=== PATIENT | female | born 1980 | race African-American/Black ===

== ENCOUNTER 2023-01-07 13:35 | Emergency (ER) | payer OTHER, SELFPAY ==
--- NOTE | ~2023-01-07 | XR_ITS ---
EXAMINATION: XR chest 2V 01/07/2023 14:56 INDICATION: Chest pain with palpitations PROCEDURE: 2 view chest COMPARISON: No prior studies for comparison. FINDINGS: The lungs are clear. The cardiomediastinal silhouette is within normal limits. There are no pleural effusions. There is no pneumothorax suspected. IMPRESSION: 1: NO ACUTE CARDIOPULMONARY DISEASE. Reviewed, dictated and finalized at location []
--- NOTE | 2023-01-07 13:38 | ECG_ITS ---
Measurements Intervals [place] Rate: 103 P: 55 MO: 147 QRS: 56 QRSD: 91 T: 41 QT: 329 QTc: 432 Interpretive Statements SINUS TACHYCARDIA WITH OCCASIONAL ATRIAL PREMATURE COMPLEXES OTHERWISE NORMAL eCG NO PREVIOUS ECG AVAILABLE FOR COMPARISON Electronically Signed On 01-07-2023 16:17:30 CDT by Vito Livingston M.D.
[2023-01-07 13:39] VITALS: BP 153/84; PULSE 114; RESP 18; TEMP 36.2; O2SAT 97
[2023-01-07 14:05] LABS: Basophils Percent Auto 0.2 % (0.2-1.2); Eosinophils Percent Auto 0.4 % (0-4.4); Hematocrit 37.7 % (37.0-47.0); Hemoglobin 11.3 g/dL (12.0-15.0); Immature Granulocyte Absolute 0.02 K/mm3 (0.00-0.031); Immature Granulocyte Percent A 0.2 % (0-0.5); Lymphocytes Absolute Auto 2.78 K/mm3 (0.9-3.2); Lymphocytes Percent Auto 26.6 % (18.3-44.2); Mean Corpuscular Hemoglobin 27.5 pg (26-34); Mean Corpuscular Volume 91.7 fl (80-100); Monocytes Absolute Auto 0.6 K/mm3 (0.1-0.6); Monocytes Percent Auto 5.7 % (2.6-8.5); Neutrophils Percent Auto 66.9 % (45.5-73.1); Platelet Count Result 365 k/mm3 (150-375); Red Blood Count 4.11 M/mm3 (4.2-5.4); Red Cell Distribution Width 12.1 % (11.5-14.5); White Blood Count 10.5 K/mm3 (4.5-10.0)
[2023-01-07 14:16] LABS: Partial Thromboplastin Time 28.6 SECONDS (22.3-36.8); Prothrombin Time 13.5 Seconds (11.1-14.7)
[2023-01-07 14:18] LABS: Alanine Aminotransferase 19 U/L (6-35); Albumin Level 4.5 g/dL (3.5-5.1); Alkaline Phosphatase 45 U/L (38-126); Anion Gap 5 mmol/L (8-16); Aspartate Amino Transferase 19 U/L (14-36); Bilirubin,Total 0.4 mg/dL (0.2-1.3); Blood Urea Nitrogen 13 mg/dL (7-17); Calcium 9.2 mg/dL (8.4-10.2); Carbon Dioxide 28 mmol/L (22-30); Chloride 105 mmol/L (98-107); Estimated Glomerular Filt Rate > 60; Glucose 116 mg/dL (65-110); Lipase 60 U/L (23-300); Potassium 3.5 mmol/L (3.4-5.0); Sodium 138 mmol/L (137-145)
[2023-01-07 14:28] VITALS: PULSE 105
[2023-01-07 14:30] LABS: Troponin I < 0.012 ng/mL (0.000-0.034)
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
[2023-01-07 14:59] LABS: D Dimer 0.39 ug/mL (<0.48)
[2023-01-07 15:46] VITALS: BP 150/58; PULSE 95; O2SAT 99
== END 2023-01-07 15:47 | disposition home or self-care (01) ==
PROVIDERS: Preventive Medicine Aerospace Medicine; Emergency Provider Emergency Medicine; PCP Physician Assistant
DX: R00.2 Palpitations (principal); R00.0 Tachycardia, unspecified
CPT/HCPCS: 36415; 71046; 80053; 83690; 84443; 84484; 85025; 85380; 85610; 85730; 93005; 99284

== ENCOUNTER 2023-01-14 10:13 | Emergency (ER) | payer OTHER, SELFPAY ==
[2023-01-14 10:47] VITALS: BP 147/96; PULSE 95; RESP 16; TEMP 36.7; O2SAT 95
--- NOTE | 2023-01-14 12:19 | ED.LOWEXIN ---
HPI - Extremity Injury (Lower) General Chief Complaint: Extremity Injury, Lower Stated Complaint: leg cramping since Tuesday Time Seen by Provider: 01/14/23 12:02 History of Present Illness HPI Narrative: Patient is a 42-year-old female presenting with right leg pain. Patient states that she has a history of chronic lower back pain. She sees a pain specialist and sometimes gets back injections. States that for the last 4 days she has had severe right-sided lower back pain that radiates into her right buttocks and down her right leg. States that sometimes her toes feel tingly. States that she has had to resort to using a walker to help with ambulation. She denies weakness, saddle anesthesia, bladder or bowel incontinence, fevers. States that she saw her pain specialist yesterday who ordered an outpatient MRI. States that she cannot get that done until next week. She denies recent trauma. Denies further complaints. Related Data Allergies Allergy/AdvReac Type Severity Reaction Status Date / Time No Known Allergies Allergy Unverified 01/07/23 14:31 Review of Systems Review of Systems: All systems reviewed & are unremarkable except as noted in HPI and below Exam Narrative: GENERAL: Well-appearing, well-nourished, and in no acute distress. HEAD: Normocephalic, atraumatic. EYES: PERRLA and EOMI. ENT: Nares clear, no rhinorrhea or epistaxis. Mucous membranes moist. NECK: Supple. BACK: R sided paraspinal tenderness of lumbar region extending into right buttocks; no midline tenderness CHEST: No respiratory distress. HEART: Regular rate and rhythm. Normal peripheral pulses. ABDOMEN: Soft, nontender, nondistended EXTREMITIES: Normal range of motion. No edema. bilateral DP pulses 2+ SKIN: Warm, dry, no rash. NEURO: No focal deficits. Alert and oriented x3. 5/5 strength in all extremities, no sensory deficits PSYCH: Normal mood and affect. Course Vital Signs Vital signs: Vital Signs Temperature 98.1 F 01/14/23 10:47 Pulse Rate 95 01/14/23 10:47 Respiratory Rate 16 01/14/23 10:47 Blood Pressure 147/96 H 01/14/23 10:47 Pulse Oximetry 95 01/14/23 10:47 Temperature 98.1 F 01/14/23 10:47 Pulse Rate 105 H 01/14/23 14:33 Respiratory Rate 20 01/14/23 14:33 Blood Pressure 122/77 01/14/23 14:33 Pulse Oximetry 96 01/14/23 14:33 MDM - Extremity Injury (Lower) MDM Narrative Medical decision making narrative: Patient is a 42-year-old female presenting with acute on chronic lower back pain that is now radiating down her right leg. Patient is a bit hypertensive, otherwise vitals are within normal limits. Exam is remarkable for the above. She is neurologically intact. She denies any red flag symptoms. She actually already has an outpatient MRI ordered of her lumbar spine which I think is appropriate. Do not feel that imaging is warranted today. We will get her started on a steroid burst for lumbar radiculopathy. She states that she has Flexeril, meloxicam, hydrocodone at home from her pain specialist. Advised that she can continue using this as prescribed. Appropriate return precautions given. Patient voiced understanding and is agreeable with plan. Discharged in stable condition. Differential Diagnosis Differential diagnosis: Likely other (Lumbar radiculopathy, low back pain, sciatica) Medical Records Attestation: I reviewed the patient's medical records. Critical Care Time Critical Care Time Critical Care Time: No Discharge Plan Discharge Clinical Impression: Lumbar radiculopathy, right Patient Disposition: Home, Self-Care Condition: Stable Instructions: Antibiotic Form, Lumbar Radiculopathy (ED) Additional Instructions: Please complete the steroids as prescribed. This should help with the irritation involving the nerves in your lower back. You may use your other pain medications as prescribed. Please follow-up closely with your pain management physician. We recomme
[2023-01-14] MEDS: oxyCODONE HCL (*CRX) 5 MG TAB IR PO (13:12)
[2023-01-14] MEDS: predniSONE 20 MG TABLET 60 MG PO (13:12)
--- NOTE | 2023-01-14 13:19 | PC.NURSE ---
Pt medicated per SEP. Pt given sandwich and drink. No other requests at this time.
[2023-01-14 14:33] VITALS: BP 122/77; PULSE 105; RESP 20; O2SAT 96
== END 2023-01-14 14:38 | disposition home or self-care (01) ==
PROVIDERS: Emergency Provider Emergency Medicine; PCP Physician Assistant
DX: M54.16 Radiculopathy, lumbar region (principal)
CPT/HCPCS: 99283; A9270; J7512

== ENCOUNTER 2023-01-18 14:49 | Emergency (ER) | payer OTHER, SELFPAY ==
--- NOTE | 2023-01-18 14:56 | ED.BACK ---
HPI - Back Pain/Injury General Chief Complaint: Extremity Problem,Nontraumatic Stated Complaint: R LEG PAIN Time Seen by Provider: 01/18/23 14:56 Source: patient, RN notes reviewed and old records reviewed Mode of arrival: ambulatory Limitations: no limitations History of Present Illness HPI Narrative: 42-year-old female presents to the [facility] with right lower back, right leg pain. Was evaluated on the 14 of January in the emergency room, prescribed prednisone. Was supposed to follow-up with pain management Patient denies any changes. Denies any loss retention of bowel or bladder, no numbness or tingling in pelvis, no new back pain. Patient is wanting paperwork to be off of work because she cannot stand or walk. Again patient is denying any new signs or symptoms. Is requesting a work note to be off of work or modification of work. Reports having a MRI scheduled for the end of the month. States she will call her pain management in the morning Related Data Allergies Allergy/AdvReac Type Severity Reaction Status Date / Time No Known Allergies Allergy Verified 01/18/23 14:57 Review of Systems Review of Systems: All systems reviewed & are unremarkable except as noted in HPI and below Constitutional: Constitutional: Reports no additional constitutional complaints Eyes: Eyes: Reports no additional eye complaints ENT: Reports system reviewed and no additional complaints, except as documented Cardiovascular: Cardiovascular: Reports no additional cardiovascular complaints, Denies chest pain and Denies dyspnea Respiratory: Respiratory: Reports no additional respiratory complaints, Denies chest congestion, Denies cough and Denies dyspnea Gastrointestinal: Gastrointestinal: Reports no additional gastrointestinal complaints, Denies abdominal pain, Denies nausea and Denies vomiting Musculoskeletal: Musculoskeletal: Reports as per HPI and Reports back pain Integumentary/Breasts: Skin/Breast: Reports system reviewed and no additional complaints, except as docu Neurologic: Reports system reviewed and no additional complaints, except as documented Psychiatric: Psychiatric: Reports no additional psychiatric complaints Allergic/Immunologic: Allergic/Immunologic: Reports no additional allergic/immunologic complaints [facility] Past Medical History Medical History (Updated 01/18/23 @ 16:44 by Belinda Swanson APRN) Chronic back pain Comments At the time of my signature, I reviewed and agree with the nursing past medical, surgical, social, and family history. There is no relevant family history pertinent to the patient complaint. Exam Const: General: cooperative, healthy appearing, comfortable, no acute distress, well developed, alert and well nourished Nutritional Appearance: well nourished and obese Orientation/consciousness: patient oriented x3 Limitations: no limitations HENMT: Head: normal to inspection Ears: hearing grossly normal bilaterally and external ears normal Face/Nose/Sinus: Normal external nose present, Normal nares present, Normal nasal mucous membranes and turbinates present and normal facial exam Face and sinus: normal facial exam Mouth: Yes Normal oral and palatal mucosa present, Yes lip normal and Yes moist mucous membranes Throat: posterior oropharynx normal and uvula midline Eyes: General: appearance normal, both eyes and all related structures Alignment and Position: alignment normal Periorbital: periorbital findings normal Pupils: Equal, round and reactive pupils present EOM: EOMs intact bilaterally Neck: Neck: normal visual inspection, full ROM, no lymphadenopathy and no meningeal signs Chest: Chest palpation & inspection: normal inspection of the chest Resp: Effort & Inspection: normal respiratory effort and able to speak in complete sentences Cardio: Rate: regular rate Rhythm: regular rhythm GI: GI Palp: No abdominal tenderness Back/Spine/Pelvis: Back: back tenderness (Generalized lower lumbar
[2023-01-18 14:57] VITALS: BP 153/88; PULSE 110; RESP 16; TEMP 35.8; O2SAT 98
== END 2023-01-18 15:10 | disposition home or self-care (01) ==
PROVIDERS: Emergency Provider Nurse Practitioner; PCP Physician Assistant
DX: M54.16 Radiculopathy, lumbar region (principal); I10 Essential (primary) hypertension; E11.9 Type 2 diabetes mellitus without complications
CPT/HCPCS: 99211; G0463

== ENCOUNTER 2024-08-27 00:14 | Emergency (ER) | payer OTHER, SELFPAY ==
[2024-08-27] VITALS (15 sets, daily range): BP systolic 102–139; BP diastolic 48–74; PULSE 80–97; RESP 13–31; TEMP 36.7; O2SAT 96–98
--- NOTE | 2024-08-27 00:36 | ED_ITS ---
HPI - Back Pain/Injury General Chief Complaint: Back Pain/Injury Stated Complaint: R hip and lower back pain x 4d Time Seen by Provider: 08/27/24 00:22 History of Present Illness HPI Narrative: 44-year-old female with history of chronic back pain and lumbar radiculopathy presents to the emergency department for acute on chronic back pain with lumbar radiculopathy. Patient presents via EMS from home. States she has had a flare for sciatica for the past 4 days. She is prescribed tramadol, muscle relaxers, gabapentin and meloxicam by her PCP which she has been taking without much improvement. tonight, the patient states she try to get out of bed to go to the bathroom when her sciatica pain significantly increased. She contacted EMS was transported to the ED. She does states the pain is in the right buttock and radiates down the right posterior lateral aspect of her leg and at times goes down into her foot. She describes it is sharp and cramping like pain. She notes that she has had several outpatient MRIs, most recently in March that showed spinal stenosis. She is following with pain management for a while for injections but states this was not helping her symptoms she stopped seeing them around the summertime. She is scheduled to establish with the neurosurgeon this summer at [facility]. She denies abdominal pain, dysuria or hematuria, fever, nausea vomiting, injury or trauma, saddle anesthesia, bowel or bladder incontinence, urinary retention, use of IV drugs, recent surgeries or procedures to her back. Related Data Allergies Allergy/AdvReac Type Severity Reaction Status Date / Time No Known Allergies Allergy Verified 08/27/24 00:18 Review of Systems Review of Systems: All systems reviewed & are unremarkable except as noted in HPI and below PMFSH Past Medical History Medical History Chronic back pain Exam Narrative: GENERAL: Well-appearing, well-nourished, and in no acute distress. HEAD: Normocephalic, atraumatic. EYES: EOMI. ENT: Nares clear, no rhinorrhea or epistaxis. Mucous membranes moist. NECK: Supple. BACK: Mild tenderness to the lumbar spine, increasing tenderness to the right paraspinous muscles and overlying the right piriformis. No overlying skin changes, crepitus, step-offs or deformities. CHEST: Clear to auscultation. No respiratory distress. HEART: Regular rate and rhythm. No murmur heard. Normal peripheral pulses. ABDOMEN: Soft, nontender, nondistended, normal active bowel sounds. EXTREMITIES: Normal range of motion. No edema. No saddle anesthesia, strength 5/5 in BLE SKIN: Warm, dry, no rash. NEURO: No focal deficits. Alert and oriented x3 Course Vital Signs Vital signs: Vital Signs Temperature 98.1 F 08/27/24 00:12 Pulse Rate 97 08/27/24 00:12 Respiratory Rate 15 08/27/24 00:12 Blood Pressure 131/74 08/27/24 00:12 Pulse Oximetry 98 08/27/24 00:12 Oxygen Delivery Room Air 08/27/24 00:12 Temperature 98.1 F 08/27/24 00:12 Pulse Rate 97 08/27/24 00:12 Respiratory Rate 15 08/27/24 00:12 Blood Pressure 131/74 08/27/24 00:12 Pulse Oximetry 98 08/27/24 00:12 Oxygen Delivery Room Air 08/27/24 00:12 MDM - Back Pain/Injury MDM Narrative Medical decision making narrative: 44-year-old female with history of chronic back pain and lumbar radiculopathy presents to emergency department for acute on chronic back pain and radiculopathy. See HPI for further history. Triage vitals are stable. Patient is afebrile and nontoxic appearing. Exam is significant for mild tenderness over the lumbar spine, more notably over the right paraspinous muscles and right piriformis. She is neurovascularly intact without signs or symptoms of cauda equina or severe cord compression. She has no risk factors for infectious etiology such as diskitis, osteomyelitis or spinal abscess. No abdominal pain concerning for aortic dissection. No urinary complaints. Her presentation is most consistent with acute on chronic back pain and radiculopathy symptoms. No injury or trauma. Do not feel emergent imaging is needed at this time. She is being closely managed by her PCP and has been referred to neurosurgery for which she has an appointment this summer. Will treat acute flare with steroids in addition to her pain regimen at home. In the ED she was given IM Decadron, lidocaine patch and IM Toradol. Return precautions were discussed. She is agreeable to plan verbalized understanding. Discharged in stable condition. Discharge Plan Discharge Clinical Impression: Lumbar radiculopathy Patient Disposition: Home, Self-Care Condition: Stable Instructions: Antibiotic Form, Lumbar Radiculopathy (ED), Back Pain (ED) Additional Instructions: Your evaluated in the emergency department for sciatica flare. Please continue taking the medications to have at home for ear pain in addition to using the lidocaine patches and taking the steroids I have prescribed you as directed. Please follow-up very closely with her primary care provider. Return to the emergency department if you develop a fever, numbness in your groin, you lose control of her bowel or bladder, abdominal pain, or other concerning symptoms. Patient Language: Romansh Prescriptions: New prednisone 50 mg tablet 50 mg PO DAILY Qty: 5 0RF lidocaine 5 % adhesive patch,medicated 1 patch topical DAILY Qty: 15 0RF Rx Instructions: leave on most painful area for up to 12 hrs. do not use more than 1 patch in a 24-hour period. Follow-up/Referrals: Sunil,MIKE Viramontes [Non-Staff] -
--- OUTSIDE RECORDS SUMMARY | 2024-08-27 00:38 | XMS_ITS | Clinical Summary ---
Author Organization [facility] Address [address] [place] [address] Care Team Providers Care Housekeeper Child Care Name Role Phone Ramu Dubon Primary Care Provider [phone] Allergies No known active allergies Medications MULTIPLE VITAMINS-MINERA LS ER OR Take by mouth daily. Active Drospirenone (SLYND) 4 MG Tab Slynd 4 mg (28) tablet Take 1 tablet by mouth once daily Active acetaminophen (TYLENOL) 500 MG tablet every 4 (four) hours as needed. Active acyclovir 800 MG tablet daily. 05/26/2021 Active atorvastatin 40 MG tablet daily. 06/01/2021 Active famotidine 20 MG tablet 2 (two) times daily. 05/26/2021 Active meloxicam 15 MG tablet daily. 05/17/2021 Active metFORMIN ER 500 MG 24 hr tablet daily with breakfast. 05/26/2021 Active pantoprazole EC 40 MG tablet 05/28/2021 Active traMADol 50 MG tablet 2 (two) times daily. 05/27/2021 Active vitamin D2, ergocalciferol, 95678 UNITS capsule 06/26/2021 Active lisinopril (PRINIVIL) 30 MG tablet daily. Active nystatin (MYCOSTATIN) powder nystatin 100,000 unit/gram topical powder Active cyclobenzaprine (FLEXERIL) 10 MG tablet TAKE 1 TABLET BY MOUTH ONCE DAILY AT BEDTIME FOR 30 DAYS 12/24/2022 Active aspirin EC (ECOTRIN) 81 MG tablet Take 1 tablet every day by oral route. Active gabapentin (NEURONTIN) 100 MG capsule Take 2 capsules 3 times a day by oral route as needed for 30 days. 02/03/2023 Active oxybutynin XL (DITROPAN-XL) 10 MG 24 hr tablet Take 1 tablet (10 mg total) by mouth every morning. Active atenolol (TENORMIN) 25 mg split tab Take 1 split tab (25 mg total) by mouth daily. 02/06/2024 Active chlorhexidine (PERIDEX) 0.12 % solution Use as directed 15 mLs in the mouth or throat 2 (two) times daily. 10/17/2023 Active Active Problems Problem Noted Date Diagnosed Date Lumbar facet arthropathy 05/10/2022 Overview (05/10/2022): Added automatically from request for surgery [id number] Lumbar radiculopathy 06/18/2021 Encounters Date Type Department Care Team Description 06/07/2024 Orders Only [facility] [place] [address] [id number] Ree Cassidy, RAG COLLECTOR 06/07/2024 Telephone [facility] [place] [address] [id number] Idalia Arce, RN Follow Up Call 06/07/2024 Telephone [facility] [place] [place] [address] [id number] Autumn Bailey RN Follow Up Call 06/04/2024 Telephone [facility] [place] [address] [id number] Piedad Latham RN Follow Up (/) from Last 3 Months Family History Medical History Relation Comments Diabetes Mother Hypertension Mother Diabetes Sister Hypertension Sister Relation Status Comments Mother Sister Social History Tobacco Use Types Packs/Day Years Used Date Smoking Tobacco: Never Smokeless Tobacco: Never Alcohol Use Standard Drinks/Week Comments Never 0 (1 standard drink = 0.6 oz pur e alcohol) Comments No Sex and Gender Information Value Date Recorded Sex Assigned at Not on file Legal Sex Female 2:56 PM CDT Gender Identity Female 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 Sexual Orientation Not on file Last Filed Vital Signs Vital Sign Reading Time Taken Comments Blood Pressure 123/70 02/14/2024 10:49 AM CDT Pulse 88 02/14/2024 10:49 AM CDT Temperature 36.7 C (98 F) 02/14/2024 10:18 AM CDT Respiratory Rate 18 02/14/2024 10:4 9 AM CDT Oxygen Saturation 98% 02/14/2024 10: 49 AM CDT Inhaled Oxygen Concentration - - Weight 126.9 kg (279 lb 12.8 oz) 2023 10:18 AM CDT Height 167.6 cm (5' 6 ) 02/14/2024 10:1 8 AM CDT Body Mass Index 45.16 02/14/2024 10:18 AM CDT Plan of Treatment Upcoming Encounters Date Type Department Care Team (Late st Contact Info) Description 01/08/2025 9:20 AM CDT Office Visit [facility] - [facility] [address], [address] [place] [address] Philip Newton MD [address] [place] [address] Health Maintenance Due Date Last Done Comments Annual Physical 1984 DTaP, Tdap and Td Vaccines ( 2 - Tdap) 06/11/1997 06/10/1997 Hepatitis C 1999 Hepatitis B Vaccines (1 of 3 - 19+ 3-dose series) 2000 Mammogram Screening 2021 COVID-19 Vaccine ( - 2023-2 5 season) 2024 Influenza Adult (#1) 2024 HPV Vaccines Aged Out No longer eligi ble based on patient's age to complete this topic Meningococcal B Vaccine Aged Out No l onger eligible based on patient's age to complete this topic Meningococcal Vaccine Aged Out No lyudmila ej eligible based on patient's age to complete this topic Pneumococcal Vaccine: Pediat rics (0 to 5 Years) and At-Risk Patients (6 to 64 Years) Aged Out No longer eligi ble based on patient's age to complete this topic RSV Immunizations Under 20 Months Aged Out No longer eligible based on patient's age to complete this topic Insurance [employer] Care Teams Housekeeper Child Care Relationship Specialty [place] [address] [place] [id number] PCP - General PHYSICIAN MODEL MAKER SCALE 09/27/23
--- OUTSIDE RECORDS SUMMARY | 2024-08-27 00:38 | XMS_ITS | Encounter Summary ---
Author Organization [facility] Address [address] [place] [address] Phone Care Team Providers Care Appliance Installer Name Role Phone Provider, Not On File Primary Care Provider Unav ailable Provider, None Primary Care Provider UnavailAnnita Alicea PAC Primary Care Provider [phone] Reason for Visit * Reason Comments Medication Refill Encounter Details Date Type Department Care Team (Late st Contact Info) Description 10/09/[address] [facility] [address] [place] [address] Melissa Miranda, TICKETING CLERK, UPHOLSTERY AUTO TRIMMER [address] [place] [address] Medication Refill Social History Tobacco Use Types Packs/Day Years Used Date Smoking Tobacco: Never Smokeless Tobacco: Never Alcohol Use Standard Drinks/Week Comments No 0 (1 standard drink = 0.6 oz pur e alcohol) Comments Unknown Sex and Gender Information Value Date Recorded Sex Assigned at Not on file Legal Sex Female 3:21 PM CDT Gender Identity Not on file Sexual Orientation Not on file documented as of this encounter Miscellaneous Notes * Telephone Encounter - Bette Dillard - 10/10/2019 12:49 PM CDT Notified patient * Telephone Encounter - Bette Dillard - 10/10/2019 8:47 AM CDT Refill request * Telephone Encounter - Bette Dillard - 10/09/2019 2:41 PM CDT Refill request documented in this encounter Plan of Treatment Not on file documented as of this encounter Visit Diagnoses Not on filedocumented in this encounter Care Teams Appliance Installer Relationship Specialty Start Date End Date Provider, Not On File [place] PCP - General 07/30/19 11/14/19 Provider, None [place] PCP - General 11/15/19 12/12/19 Annita Barber, [facility] [address] [place] [id number] PCP - General Physician Supervisor Sewer Maintenance 12/13/19 documented as of this encounter
--- OUTSIDE RECORDS SUMMARY | 2024-08-27 00:38 | XMS_ITS | CONTINUITY OF CARE DOCUMENT ---
Author Name laura sanchez Address Unknown Organization [facility] Address [address] [facility] [address] [place] [address] Phone [phone] Care Team Providers Care Bead Wrapper Name Role Phone Lilly ARGUELLO, Viet Unavailable [phone] JEFFERY PORRAS MD Unavailable CLARITA ARGUELLO, MATTIE Unavailable INSURANCE PROVIDERS Payer name Policy type / Coverage type [place] [employer] party ID [employer] MEDICAID Medicaid [id number] SELF PAY [id number]
--- OUTSIDE RECORDS SUMMARY | 2024-08-27 00:38 | XMS_ITS | Encounter Summary ---
Author Organization [facility] Address [address] [facility] [address] Phone Care Team Providers Care Kitchen Porter Name Role Phone Provider, Not On File Primary Care Provider Unav ailable Provider, None Primary Care Provider UnavailAnnita Alicea PAC Primary Care Provider [phone] Reason for Visit * Reason Comments Medication Refill Encounter Details Date Type Department Care Team (Late st Contact Info) Description 08/29/2019 Refill [facility] [address] [place] [phone] Melissa Miranda, PRIMARY [place] TEACHER, CLAIMS EXAMINER [address] [place] [phone] Medication Refill Social History Tobacco Use Types [...] on file documented as of this encounter Plan of Treatment Not on file documented as of this encounter Visit Diagnoses Not on filedocumented in this encounter Care Teams Kitchen Porter Relationship Specialty Start Date End Date Provider, Not On File [place] PCP - General 07/30/19 11/14/19 Provider, None [place] PCP - General 11/15/19 12/12/19 Annita Barber, [facility] [address] [place] [address] PCP - General Physician Instructional Design Consultant 12/13/19 documented as of this encounter
--- OUTSIDE RECORDS SUMMARY | 2024-08-27 00:38 | XMS_ITS | Encounter Summary ---
Author Organization [facility] Address [address] [facility] [place] [address] Phone Care Team Providers Care Quebracho Tanner Name Role Phone Provider, Not On File Primary Care Provider Unav ailable Provider, None Primary Care Provider UnavailAnnita Alicea PAC Primary Care Provider [phone] Reason for Visit * Reason Comments Medication Refill Encounter Details Date Type Department Care Team (Late st Contact Info) Description 09/12/2019 [facility]ill [facility] [address] [place] [phone] Melissa Miranda, ANODIZING LINE OPERATOR, WEB CONTENT COORDINATOR [address] [place] [phone] Medication Refill Social History Tobacco Use Types [...] on filedocumented in this encounter Care Teams Quebracho Tanner Relationship Specialty Start Date End Date Provider, Not On File [place] PCP - General 07/30/19 11/14/19 Provider, None [place] PCP - General 11/15/19 12/12/19 Annita Barber, [facility] [address] [place] [address] PCP - General Physician Legal Mediator 12/13/19 documented as of this encounter
--- OUTSIDE RECORDS SUMMARY | 2024-08-27 00:38 | XMS_ITS | Encounter Summary ---
Author Organization [facility] Address [address] [place] [address] Phone Care Team Providers Care Adjunct Writing Instructor Name Role Phone Provider, Not On File Primary Care Provider Unav ailable Provider, None Primary Care Provider UnavailAnnita Alicea PAC Primary Care Provider [phone] Reason for Visit * Reason Comments Medication Refill Encounter Details Date Type Department Care Team (Late st Contact Info) Description 11/06/2019 Refill [facility] [address] [place] [address] Melissa Miranda, BUSINESS CONTINUITY MANAGER, SCALLOP CUTTER [address] [place] [address] Medication Refill Social History Tobacco [...] * Telephone Encounter - Bette Dillard - 11/07/2019 8:38 AM CDT Pt will contact her PCP for refill. documented in this encounter Plan of Treatment Not on file documented as of this encounter Visit Diagnoses Not on filedocumented in this encounter Care Teams Adjunct Writing Instructor Relationship Specialty Start Date End Date Provider, Not On File [place] PCP - General 07/30/19 11/14/19 Provider, None [place] PCP - General 11/15/19 12/12/19 Annita Barber, PAC [address] [place] [address] PCP - General Physician Body Masker 12/13/19 documented as of this encounter
--- OUTSIDE RECORDS SUMMARY | 2024-08-27 00:38 | XMS_ITS | Encounter Summary ---
Author Organization [facility] Address [address] [place] [address] Care Team Providers Care Campus Executive Director Name Role Phone Annita Barber PA-C Primary Care Provider + Ramu Dubon Primary Care Provider [phone] Reason for Referral * Surgical (Routine) - Closed Specialty Diagnoses / Procedures Referred By Jose walden Referred To Contact Diagnoses Lumbar facet arthropathy Procedures Case request operating room: INJECTION FACET JOINT l45 and [id number] Sudha Silva MD [facility] [address] [place] [address] Phone: tel: fax: Referral ID Status Reason Start Date Expiration Date Visits Re quested Visits Authorized [id number] Closed 08/17/2022 08/17/2023 1 1 UATE NURSE * Surgical (Routine) - Closed Specialty Diagnoses / Procedures Referred By Jose walden Referred To Contact Procedures Case request operating room: BLOCK SACROILIAC JOINT Ying French APNP Phone: tel: fax: Referral ID Status Reason Start Date Expiration Date Visits Re quested Visits Authorized [id number] Closed 07/22/2021 08/22/2022 1 1 UATE NURSE Encounter Details Date Type Department Care Team (Late st Contact Info) Description 07/22/2021 Prep for Procedure [facility] [place] [address] [phone] Ying French APNP [address] [place] [phone] Social History Tobacco Use Types Packs/Day Years Used Date Smoking Tobacco: Never Smokeless Tobacco: Never Alcohol Use Standard Drinks/Week Comments Never 0 (1 standard drink = 0.6 oz pur e alcohol) Comments No Sex and Gender Information Value Date Recorded Sex Assigned at Not on file Legal Sex Female 2:56 PM CDT Gender Identity Female 07/27/2021 10:23 AM GRADUATE NURSE Sexual Orientation Not on file COVID-19 Exposure Response Date Recorded In the last month, have you been in contact with someone who was confirmed or suspected to have Coronavirus / COVID-19? No / Unsure 07/22/2021 8:42 AM GRADUATE NURSE documented as of this encounter Plan of Treatment Upcoming Encounters Date Type Department Care Team ([facility] st Contact Info) Description 01/08/2025 9:20 AM CDT Office Visit [facility] [address] [facility] [facility], [address] [place] [address] Philip Newton MD [address] [place] [address] Scheduled Orders Name Type Priority Associated Diagnoses Orde r Schedule Case request operating room: BLOCK SACROILIAC JOINT Case Request Routine Once for 1 Occurrences starting 07/22/2021 until 07/22/2021 Case request operating room: INJECTION FACET JOINT l45 and [id number] Case Request Routine Lumbar facet arthropathy Once for 1 Occurrences starting 08/17/2022 until 08/17/2022 documented as of this encounter Visit Diagnoses Diagnosis Lumbar facet arthropathy- Primary Lumbosacral spondylosis without myelopathy documented in this encounter Care Teams Campus Executive Director Relationship Specialty Start Date End Date Annita Barber PA-C [address] [place] [address] PCP - General PHYSICIAN APPRENTICE PAINTER HAND 12/19/20 09/26/23 Ramu Dubon PA [address] [place] [address] PCP - General PHYSICIAN APPRENTICE PAINTER HAND 09/27/23 documented as of this encounter
--- OUTSIDE RECORDS SUMMARY | 2024-08-27 00:38 | XMS_ITS | Encounter Summary ---
Author Organization [facility] Address [address] [facility] [place] [address] Phone Care Team Providers Care Territory Supervisor Name Role Phone Annita Barber Primary Care Provider Reason for Visit * Reason Comments Medication Refill Encounter Details Date Type Department Care Team (Late st Contact Info) Description 04/22/2020 Refill [facility] [address] [place] [address] Israel Moeller PAC Medication Refill Social History Tobacco Use Types [...] on filedocumented in this encounter Care Teams Territory Supervisor Relationship Specialty Start Date End Date Annita Barber PAC [address] [place] [address] PCP - General Physician Burlapper 12/13/19 documented as of this encounter
--- OUTSIDE RECORDS SUMMARY | 2024-08-27 00:38 | XMS_ITS | Encounter Summary ---
Author Organization [facility] Address [address] [place] [address] Phone Care Team Providers Care Stripper Machine Operator Name Role Phone Annita Barber Primary Care Provider [phone] Reason for Visit * Reason Comments Medication Refill Encounter Details Date Type Department Care Team (Late st Contact Info) Description 03/17/2020 [facility]ill [facility] [address] [place], [place] [address] Israel Moeller PAC Medication Refill Social History [...] encounter Miscellaneous Notes * Telephone Encounter - Israel Moeller PAC - 03/18/2020 4:42 PM CDT Rx refill approved. Refill approved at this time as there is no other provider in Pain Management. Please ask pt to have this medication refilled by PCP. * Telephone Encounter - Olivia Leon RN - 03/18/2020 7:48 AM CDT Unable to sign per policy, routing to provider for review and approval. Last visit was on 01/23/20. Last refill of methocarbamol given on 02/15/20 and they were given #60 with 0 refills. Order pended. documented in this encounter Plan of Treatment Not on file documented as of this encounter Visit Diagnoses Not on filedocumented in this encounter Care Teams Stripper Machine Operator Relationship Specialty Start Date End Date Annita Barber, [facility] [address] [place] [address] PCP - General Physician Laboratory Tech 12/13/19 documented as of this encounter
--- OUTSIDE RECORDS SUMMARY | 2024-08-27 00:39 | XMS_ITS | Clinical Summary ---
Author Organization [facility] Address [address] [facility] [place] [address] Care Team Providers Care Software Project Manager Name Role Phone Annita Barber PA-C Primary Care Provider + Source Comments [facility],non-owned Affiliates and Associated Physician Practices is amultiple site organization consisting of ambulatory clinics and hospital sitesin [place], [place], [place]. This disclosure is being madepursuant to the Care Everywhere program and may not contain all information available regarding this patient. Last updated 18.[facility] Allergies No known active allergies Medications * Be aware that medications may not be up to date on this document. Alwaysverify current medications with the patient. Medication Sig Dispensed Refills Start Date End Date Status NORETHINDRONE PO Take by mouth once daily Active acetaminophen (TYLENOL) 500 MG tablet Take 2 tabs by mouth in am and 2 tabs by mouth in pm as needed for pain. 06/15/2018 Active acyclovir (ZOVIRAX) 800 MG tablet acyclovir 800 mg tablet TAKE 1 TABLET BY MOUTH EVERY DAY Active citalopram (CELEXA) 40 MG tablet citalopram 40 mg tablet TAKE 1 TABLET BY MOUTH EVERY DAY Active meloxicam (MOBIC) 15 MG tablet TAKE 1 TABLET BY MOUTH DAILY WITH FOOD 09/11/2018 Active pantoprazole EC (PROTONIX) 40 MG tablet Take 40 mg by mouth once daily Active traMADol (ULTRAM) 50 MG tablet Take 50 mg by mouth 03/12/2019 Activ e Multiple Vitamins-Minerals (MULTIVITAMIN ADULT PO) Active ascorbic acid (VITAMIN C) 500 MG tablet Take 500 mg by mouth once daily Active Active Problems Patient Care Coordination No te Formatting of this note migh t be different from the original. This patient is enrolled in the Education Study. She is in the control group. She has completed Questionnaire #1. She has completed Questionnaire #2. She has completed Questionnaire #3. Problem Noted Date Diagnosed Date LGA (large for gestational age) fetus 04/17/2015 Overview (04/30/2015): Assessment: >90%tile on 04/16/2015 Plan: Repeat ultrasound for growth in 3 weeks Anemia 04/16/2015 Overview (04/30/2015): Assessment: Asymptomatic Hgb 10.2 04/16/15 Plan: Continue oral PNV with Fe Obesity complicating 03/26/2015 Overview (04/30/2015): Assessment: As of 26w1d Body mass index is 40.37 kg/(m^2). GCT 108 TW->253 (2#) Plan: Continue to monitor Needs counseling on weight Uterine fibroids affecting 03/26/2015 Overview (04/30/2015): Assessment: Uterine fibroids as of 01/27/15 measured: 1. Posterior right lower submucosal uterine segment 6.6 x 7.4 x 6.4 cm 2. 6.1 x 4.4 x 7.9 cm mid anterior, 3. 8.6 x 6.3 x 7.1 cm right anterior Repeat FETU scan 03/26/15: 1. Post right lower submucosal uterine segment mean diameter 7.8cm 2. abutting head 3. Anterior right subserosal mid uterine segment mean diameter 6.54cm 4. Right lateral uterine fibroid at fundus seems subserosal with a 5. large base with a mean diameter of 8.67cm Overall stable in size. Likely degenerating as patient has severe pain directly over fibroid while patient is not azalia. Plan: Pain control: motrin 600mg until 32 wga Pt aware needs to stop this week Discussed pain control including tylenol, warm compresses Supervision of high risk in second [facility] 03/26/2015 Overview (04/30/2015): Sees Dr. Smith - Next appointment 02/28/15 Dating by 10 wk documented US not c/w LMP B+/I/-/-, NR Quad screen low risk Pap, GC/CT negative HIV testing today H/H(plt): 10.2/31.5 (218) 04/16/15 GBS at 36 wga Threatened labor 03/26/2015 Overview (04/30/2015): Assessment: Admitted 03/26 with short cervix (1.8 cm) and azalia every 4-6 minutes on admission, Cervix cl/th/hi WEU visit 04/14/15 for contractions, cervix 0/0/-3, patient taking progesterone orally Plan: Continue vaginal progesterone S/p ANCS 03/26, 03/27 for improved outcome including accelerated lung maturity and decreased incidence of IVH and NEC S/P indocin for tocolysis given suspected etiology is secondary to inflammation from degenerating uterine fibroids. 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 Overview (04/30/2015): Assessment: Taking acyclovir for suppression. Patient denies history of outbreaks and currently without symptoms Plan: BLE on admission to L&D Cervical insufficiency durin g in second trimester, antepartum Overview (04/30/2015): Assessment: TV U/S 03/26/15: Transvaginal cervical length measures 1.8cm with some funneling identified. TV U/S 04/16/15: Transvaginal cervical length measures 3.3cm, no funneling identified. Plan: Continue routine care Resolved Problems Problem Noted Date Diagnosed Date Resolved Date Fibroids 03/26/2015 03/26/2015 Overview (03/26/2015): Uterine fibroids as of 01/27/15 measured: Posterior right lower submucosal uterine segment 6.6 x 7.4 x 6.4 cm 6.1 x 4.4 x 7.9 cm mid anterior, 8.6 x 6.3 x 7.1 cm right anterior Repeat FETU scan 03/26/15: Post right lower submucosal uterine segment mean diameter 7.8cm abutting head Anterior right subserosal mid uterine segment mean diameter 6.54cm Right lateral uterine fibroid at fundus seems subserosal with a large base with a mean diameter of 8.67cm Overall stable in size. Likely degenerating as patient has severe pain directly over fibroid while patient is not azalia. Plan: Pain control, Indocin for tocolysis labor in second trim sabrina without delivery 04/16/2015 Pelvic pressure in , antepartum 04/16/2015 Family History Medical History Relation Name Comments Diabetes Mother Hypertension Mother Hypertension Sister Relation Name Status Comments Mother Sister Social History Tobacco Use Types Packs/Day Years Used Date Smoking Tobacco: Never Smokeless Tobacco: Never Tobacco Cessation:Counseling Given: Yes Alcohol Use Standard Drinks/Week Comments No 0 (1 standard drink = 0.6 oz pur e alcohol) Sex and Gender Information Value Date Recorded Sex Assigned at Not on file Gender Identity Not on file Sexual Orientation Not on file Last Filed Vital Signs Vital Sign Reading Time Taken Comments Blood Pressure 139/78 03/21/2019 9:14 AM CDT Pulse 94 03/21/2019 9:14 AM CDT Temperature 37.8 C (100.1 F) 03/21/2019 9:14 AM CDT Respiratory Rate 18 05/26/2015 7:30 AM SOLAR PANEL INSTALLATION SUPERVISOR Oxygen Saturation 97% 03/21/2019 9:14 AM CDT Inhaled Oxygen Concentration - - Weight 130.2 kg (287 lb) 03/21/2019 9:14 AM CDT Height 167.6 cm (5' 6 ) 03/21/2019 9:14 AM CDT Body Mass Index 46.32 03/21/2019 9:14 AM CDT Plan of Treatment Health Maintenance Due Date Last Done Comments LIPID TESTING 1981 MAMMOGRAM 1981 PAP SMEAR 1981 HEPATITIS C SCREENING 07/09/1999 DTAP/TDAP/TD VACCINES (1 - Tdap) 2000 HEPATITIS B VACCINE (1 of 3 - 19+ 3-dose series) 2000 COVID-19 VACCINE (1 - 2023-2 5 season) 2024 INFLUENZA VACCINE (#1) 2024 DEPRESSION SCREENING 07/18/2024 ZOSTER VACCINE (1 of 2) 2031 HIV SCREENING Completed 04/16/2015 HIB VACCINE Aged Out No longer eligi ble based on patient's age to complete this topic HPV VACCINE Aged Out No longer eligi ble based on patient's age to complete this topic MENINGOCOCCAL (Group B) VACCINE Aged Out No longer eligible based on patient's age to complete this topic MENINGOCOCCAL VACCINE Aged Out No lyudmila ej eligible based on patient's age to complete this topic PNEUMOCOCCAL VACCINE Aged Out No long er eligible based on patient's age to complete this topic Procedures Procedure Name Priority Date/Time Associated Diagnosis Comments HIV-1 HIV-2 ANTIBODY + HIV P24 AG PANEL Routine 04/16/2015 2:06 PM CDT from Last 3 Months or Most Recently Relevant to Health Maintenance Results * HIV-1 HIV-2 ANTIBODY + HIV P24 AG PANEL (04/16/2015 2:06 PM CDT) HIV1/2 Ab + P24 Ag Non Reactive Non Reactive 04/16/2015 6:47 PM CDT [facility] Blood BLOOD SPECIMEN / Unknown Venipuncture / Unknown 04/16/2015 2:06 PM CDT 04/16/2015 2:50 PM CDT Narrative [facility] - 04/16/2015 6:47 PM CDT No Laboratory evidence of HIV infection. Chikis Das MD LAB - CHEMISTRY ANA HANN[facility] Organization Address City/State/ZIP Co de Phone Number [facility] [address] [place] [address] from Last 3 Months or Most Recently Relevant to Health Maintenance Advance Directives * Full Code (Latest Code Status on File) Date Activated Date Inactivated Comments 05/24/2015 11:37 AM 05/26/2015 3:46 PM * Full Code Date Activated Date Inactivated Comments 04/14/2015 7:07 PM 04/15/2015 12:35 AM * Full Code Date Activated Date Inactivated Comments 03/26/2015 5:04 PM 03/30/2015 2:19 PM Care Teams Software Project Manager Relationship Specialty Start Date End Date Annita Barber PA-C [address] [place] [id number] PCP - General 05/04/19
--- OUTSIDE RECORDS SUMMARY | 2024-08-27 00:39 | XMS_ITS | Referral Summary ---
Author Organization [facility] [employer] [facility] Address [address] [facility] [place] [address] Care Team Providers Care Knitting Demonstrator Name Role Phone Annita Barber PA-C Primary Care Provider + Source Comments [facility] [employer],non-owned Affiliates and Associated Physician Practices is amultiple site organization consisting of ambulatory clinics and hospital sitesin [place], [place], [place] and [place]. This disclosure is being madepursuant to the Care Everywhere program and may not contain all information available regarding this patient. Last updated 18.[facility] [employer] Allergies No known active allergies Medications * [...] compresses Supervision of high risk in second [facility] 03/26/2015 Overview (04/30/2015): Sees Dr. Smith - [...] 04/16/2015 Pelvic pressure in , antepartum 04/16/2015 Social History Tobacco Use Types Packs/Day Years [...] CDT Respiratory Rate 18 05/26/2015 7:30 AM TAKE DOWN SORTER Oxygen Saturation 97% 03/21/2019 9:14 AM CDT Inhaled Oxygen Concentration - - Weight 130.2 kg (287 lb) 03/21/2019 9:14 AM CDT Height 167.6 cm (5' 6 ) 03/21/2019 9:14 AM CDT Body Mass Index 46.32 03/21/2019 9:14 AM CDT Functional Status Functional Status Response Date of Assess ment Is person deaf or have serious hearing difficult y? No 05/26/2015 Is person blind or have serious difficulty seein g? No 05/26/2015 Does person have serious dif ficulty walking/climbing stairs? No 05/26/2015 Does person have difficulty dressing/bathing? No 05/26/2015 Does person have difficulty doing errands alone? No 05/26/2015 Cognitive Status Response Date of Assessm ent Does person have difficulty concentrating/remembering/making decisions? No 05/26/2015 Plan of Treatment Not on file Procedures Procedure Name Priority Date/Time Associated Diagnosis Comments HIV-1 HIV-2 ANTIBODY + HIV P24 AG PANEL Routine 04/16/2015 2:06 PM CDT from Last 3 Months or Most Recently Relevant to Health Maintenance Results * HIV-1 HIV-2 ANTIBODY + HIV P24 AG PANEL (04/16/2015 2:06 PM CDT) HIV1/2 Ab + P24 Ag Non Reactive Non Reactive 04/16/2015 6:47 PM CDT [facility] Blood BLOOD SPECIMEN / Unknown Venipuncture / Unknown 04/16/2015 2:06 PM CDT 04/16/2015 2:50 PM CDT Narrative [facility] - 04/16/2015 6:47 PM CDT No Laboratory evidence of HIV infection. Chikis Das MD LAB - CHEMISTRY ANA [facility]ANNON Performing Organization Address City/State/[facility] Co de Phone Number [facility] [place] [address] from Last 3 Months or Most Recently Relevant to Health Maintenance Advance Directives * Full Code (Latest Code Status on File) Date Activated Date Inactivated Comments 05/24/2015 11:37 AM 05/26/2015 3:46 PM * Full Code Date Activated Date Inactivated Comments 04/14/2015 7:07 PM 04/15/2015 12:35 AM * Full Code Date Activated Date Inactivated Comments 03/26/2015 5:04 PM 03/30/2015 2:19 PM Care Teams Knitting Demonstrator Relationship Specialty Start Date End Date Annita Barber PA-C [address] [place] [address] PCP - General 05/04/19
--- OUTSIDE RECORDS SUMMARY | 2024-08-27 00:39 | XMS_ITS | Encounter Summary ---
Author Organization [facility] Address [address] [place] [address] Care Team Providers Care Non Destructive Evaluation Manager Name Role Phone Annita Barber PA-C Primary Care Provider + Ramu Dubon Primary Care Provider [phone] Encounter Details Date Type Department Care Team (Late st Contact Info) Description 04/19/2023 [employer] Network[employer] Message Enc [facility] [place] [address] [id number] Ying French APNP [address] [place] [address] Follow Up Social History Tobacco Use Types Packs/Day Years Used Date Smoking Tobacco: Never Smokeless Tobacco: Never Alcohol Use Standard Drinks/Week Comments Never 0 (1 standard drink = 0.6 oz pur e alcohol) Comments No Sex and Gender Information Value Date Recorded Sex Assigned at Not on file Legal Sex Female 2:56 PM CDT Gender Identity Female 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 Sexual Orientation Not on file documented as of this encounter Plan of Treatment Upcoming Encounters Date Type Department Care Team (Late st Contact Info) Description 01/08/2025 9:20 AM CDT Office Visit [facility] Multispecialty Care - [facility] [address] [facility], [address] [place] [phone] Philip Newton MD [address] [place] [address] documented as of this encounter Visit Diagnoses Not on filedocumented in this encounter Care Teams Non Destructive Evaluation Manager Relationship Specialty Start Date End Date Annita Barber PA-C [address] [place] [address] PCP - General PHYSICIAN [facility]PUT[facility] 12/19/20 09/26/23 Ramu Dubon PA [address] [place] [phone] PCP - General PHYSICIAN [facility] 09/27/23 documented as of this encounter
--- OUTSIDE RECORDS SUMMARY | 2024-08-27 00:39 | XMS_ITS | Clinical Summary ---
Author Organization [facility] Address [address] [place] [address] Phone Care Team Providers Care Filling Winder Name Role Phone Annita Barber Primary Care Provider [phone] Allergies No known active allergies Medications citalopram (CELEXA) 40 MG Tablet Take 40 mg by mouth daily. Active dicyclomine (BENTYL) 20 MG Tablet Take 20 mg by mouth every 6 hours as needed. Active pantoprazole (PROTONIX) 40 MG Tablet Delayed Response Take 40 mg by mouth daily. Active acetaminophen (TYLENOL) 500 MG Tablet Take 2 tabs by mouth in am and 2 tabs by mouth in pm as needed for pain. 180 Tab 3 06/15/2018 Active meloxicam (MOBIC) 15 MG Tablet TAKE 1 TABLET BY MOUTH ONCE DAILY WITH FOOD 30 Tab 08/30/2019 Active traMADol (ULTRAM) 50 MG Tablet TAKE 1 TABLET BY MOUTH TWICE DAILY NEEDED FOR MODERATE OR MORE SEVERE PAIN. 60 Tab 10/10/2019 Active SLYND 4 MG Tablet Take 4 mg by mouth daily. 12/31/2019 Active acyclovir (ZOVIRAX) 800 MG Tablet Take 800 mg by mouth daily. 01/14/2020 Active methocarbamol (ROBAXIN) 500 MG Tablet TAKE 2 TABLETS BY MOUTH 4 TIMES DAILY NEEDED FOR PAIN 60 Tab 3 05/23/2020 Active Active Problems Problem Noted Date Diagnosed Date SI (sacroiliac) joint dysfunction 06/15/2018 Sacralization of lumbar vertebra 01/30/2018 Arthropathy of lumbar facet joint 12/26/2017 Family History Medical History Relation Name Comments Cancer Maternal Grandfather Cancer Maternal Grandmother breast cancer Diabetes Mother Hypertension Mother Relation Name Status Comments Maternal Grandfather Maternal Grandmother Mother Social History Tobacco Use Types Packs/Day Years [...] Sign Reading Time Taken Comments Blood Pressure 162/93 01/23/2020 10:54 AM CDT Pulse 105 01/23/2020 10:54 AM CDT Temperature 37.1 C (98.8 F) 01/23/2020 10:54 AM CDT Respiratory Rate 18 04/05/2019 10:53 AM CDT Oxygen Saturation 97% 01/23/2020 10:54 AM CDT Inhaled Oxygen Concentration - - Weight - - Height - - Body Mass Index - - Plan of Treatment Health Maintenance Due Date Last Done Comments Hepatitis C Virus (HCV) Screening 1981 TdaP Immunization 1981 Hepatitis B Immunization (1 of 3 - 19+ 3-dose series) 2000 Pap Smear 2002 Cervical Cancer Screening (CCS) 2011 HPV/Cotest 2011 Discussion re Starting/Frequ ency of Mammograms 2021 Influenza Immunization (#1) 2024 SARS-COV-2 Immunization ( season) 2024 Respiratory Syncytial Virus (RSV) Immunization (Adult) (1 - 1-dose 75+ series) 2056 DTaP/Tdap/Td Immunization Discontinued 06/10/1997 Meningococcal Immunization (ACWY) Aged Out No longer eligible based on patient's age to complete this topic Pneumococcal Immunization Combined Aged Out No longer eligible b ased on patient's age to complete this topic Rotavirus Immunization Aged Out No lo nger eligible based on patient's age to complete this topic Insurance MEDICAID [place] Care Teams Filling Winder Relationship Specialty Start Date End Date Annita Barber, PAC [address] [place] [id number] PCP - General Physician Greige Goods Examiner 12/13/19
--- OUTSIDE RECORDS SUMMARY | 2024-08-27 00:39 | XMS_ITS | Encounter Summary ---
Author Organization [facility] Address [address] [place] [address] Care Team Providers Care Thermal Intelligence Analyst Name Role Phone Annita Barber PA-C Primary Care Provider + Ramu Dubon Primary Care Provider [phone] Encounter Details Date Type Department Care Team (Late st Contact Info) Description 05/09/2023 [employer] Message Enc [facility] [place] [address] [id number] Ying French APNP [address] [place] [address] Follow Up Social History Tobacco Use Types Packs/Day Years Used Date Smoking Tobacco: Never Smokeless Tobacco: Never Alcohol Use Standard Drinks/Week Comments Never 0 (1 standard drink = 0.6 oz pur e alcohol) Comments No Sex and Gender Information Value Date Recorded Sex Assigned at Not on file Legal Sex Female 2:56 PM CDT Gender Identity Female 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 Sexual Orientation Not on file documented as of this encounter Plan of Treatment Upcoming Encounters Date Type Department Care Team (Late st Contact Info) Description 01/08/2025 9:20 AM CDT Office Visit [facility] Multispecialty Care - [facility] [address], [address] [place] [phone] Philip Newton MD [address] [place] [address] documented as of this encounter Visit Diagnoses Not on filedocumented in this encounter Care Teams Thermal Intelligence Analyst Relationship Specialty Start Date End Date Annita Barber PA-C [address] [place] [address] PCP - General PHYSICIAN [employer] 12/19/20 09/26/23 Ramu Dubon PA [address] [place] [phone] PCP - General PHYSICIAN SPONGE DIVER 09/27/23 documented as of this encounter
--- OUTSIDE RECORDS SUMMARY | 2024-08-27 00:39 | XMS_ITS | Data Portability ---
Author Organization [facility] CALLIGiselle Webbia [facility] Address [address] [place] [address] Care Team Providers Care Pre Planning Advisor Name Role Phone MONICA CHOI Orthopedist [phone] ALEJANDRA OROZCO Primary Care Provider Assessment Encounter Date Assessment Date Assessment LastModified by Organization Details LastModified Time 05/23/2024 05/23/2024 STEWART De Jesus Not available 05/23/2024 12:03:31 Plan of Treatment Reminders Order Date Submit Date Provider Last Modified By Organization Details Last Modified Time Details Appointments ANY 30 2024 09:30A M ALEJANDRA RAZA PA-C Not available Not available Not available ANY 15 2024 09:30A M ALEJANDRA RZAA PA-C Not available Not available Not available Lab TSH + free T4, serum 2023 024 SONIA [facility], [address], [place], [address], 08/14/2023 10:08:29 HbA1c (hemoglob in A1c), blood 2023 024 [email or web address] In-Office Order, Internal Use Only DO Not Attach Compendium DO Not Attach Compendium, Do Not Delete/merge, [id number] 08/10/2023 10:33:41 CMP, serum or plasma 2023 024 BOLIVAR [facility], [address], [place], [address], 08/14/2023 10:08:32 albumin/c reatinine , mass ratio, urine 2023 024 SONIA [facility], [address], [place], [address], 08/14/2023 10:08:28 CBC w/ auto diff 2023 024 SONIA [facility], [address], [place], [address], 08/14/2023 10:08:33 lipid panel, serum 2023 024 SONIA [facility], [address], [place], [address], 08/14/2023 10:08:32 HbA1c (hemoglob in A1c), blood 2023 024 [email or web address] In-Office Order, Internal Use Only DO Not Attach Compendium DO Not Attach Compendium, Do Not Delete/merge, [id number] 11/09/2023 11:04:34 HbA1c (hemoglob in A1c), blood 2023 024 [email or web address] In-Office Order, Internal Use Only DO Not Attach Compendium DO Not Attach Compendium, Do Not Delete/merge, [id number] 02/06/2024 11:35:33 drug screen, urine 2023 024 BOLIVAR [facility], [address], [place], [address], 06/07/2024 15:12:41 HbA1c (hemoglob in A1c), blood 2024 025 [email or web address] In-Office Order, Internal Use Only DO Not Attach Compendium DO Not Attach Compendium, Do Not Delete/merge, [id number] 08/23/2024 13:02:09 albumin/c reatinine , mass ratio, urine 2024 025 SONIA [facility], [address], [place], [address], 08/23/2024 13:02:17 CMP, serum or plasma 2024 025 SONIA [facility], [address], [place], [address], 08/23/2024 13:02:18 CBC w/ auto diff 2024 025 SONIA [facility], [address], [place], [address], 08/23/2024 13:02:18 TSH, ultra-sen sitive, serum 2024 025 SONIA [facility], [address], [place], [address], 08/23/2024 13:02:17 HbA1c (hemoglob in A1c), blood 2024 025 SONIA [facility], [address], [place], [address], 08/23/2024 13:02:16 lipid panel, serum 2024 025 SONIA [facility], [address], [place], [address], 08/23/2024 13:02:17 vitamin D, 25-hydrox y, total, serum 2024 025 SONIA [facility], [address], [place], [address], 08/23/2024 13:02:18 Referral None recorded. Procedures None recorded. Surgeries None recorded. Imaging XR, wrist + hand [address] ([facility]), [address] [facility], [place], [address], 11/14/2023 11:55:22 Medication Orders chlorhexi dine gluconate 0.12 % mouthwash 2023 024 [facility], [address], [place], [address], 08/10/2023 10:33:43 tramadol 50 mg tablet 2023 024 [facility] [address], [address], [place], [address], 08/10/2023 10:52:21 cyclobenz aprine 10 mg tablet 2023 024 [facility] [address], [address], [place], [address], 08/10/2023 10:33:44 gabapenti n 100 mg capsule 2023 024 [facility] [address], [address], [place], [address], 11/09/2023 11:04:39 oxybutyni n chloride ER 15 mg tablet,ex tended release 24 hr 2023 024 [facility] [address], [address], [place], [address], 11/09/2023 11:22:29 metformin ER 500 mg tablet,ex tended release 24 hr 2023 024 [facility] [address], [address], [place], [address], 11/09/2023 11:04:40 tramadol 50 mg tablet 2023 024 [facility] [address], [address], [place], [address], 11/09/2023 11:04:42 cyclobenz aprine 10 mg tablet 2023 024 [facility] [address], [address], [place], [address], 11/09/2023 11:04:41 atorvasta tin 40 mg tablet 2023 024 [facility], [address] [facility], [place], [address], 11/09/2023 11:04:41 pantopraz ole 40 mg tablet,de layed release 2023 024 [facility], [address] [facility], [place], [address], 11/09/2023 11:22:27 ergocalci ferol (vitamin D2) 1,250 mcg (50,000 unit) capsule 2023 024 [facility] [address], [address] [facility], [place], [address], 11/09/2023 11:22:26 lisinopri l 30 mg tablet 2023 024 [facility], [address] [place], [address], 11/09/2023 11:22:27 gabapenti n 100 mg capsule 2023 024 [facility] [address], [address] [facility], [place], [address], 02/06/2024 11:35:35 oxybutyni n chloride ER 15 mg tablet,ex tended release 24 hr 2023 024 [facility] [address] [place], [address], 02/06/2024 11:35:38 metformin ER 500 mg tablet,ex tended release 24 hr 2023 024 [facility] [address] [place], [address], 02/06/2024 11:35:38 tramadol 50 mg tablet 2023 024 [facility] [address] [facility], [place], [address], 02/06/2024 11:35:41 cyclobenz aprine 10 mg tablet 2023 024 [facility] [address] [place], [address], 02/06/2024 11:35:38 atorvasta tin 40 mg tablet 2023 024 [facility] [address] [place], [address], 02/06/2024 11:35:40 pantopraz ole 40 mg tablet,de layed release 2023 024 [facility] [address] [facility], [place], [address], 02/06/2024 11:35:39 ergocalci ferol (vitamin D2) 1,250 mcg (50,000 unit) capsule 2023 024 [facility] [address] [facility], [place], [address], 02/06/2024 11:35:37 lisinopri l 30 mg tablet 2023 024 [facility] [address] [facility], [place], [address], 02/06/2024 11:35:40 atenolol 25 mg tablet 2023 024 [facility] [address] [place], [address], 02/06/2024 11:35:38 gabapenti n 100 mg capsule 2023 024 [facility] [address] [place], [address], 05/23/2024 11:57:31 oxybutyni n chloride ER 15 mg tablet,ex tended release 24 hr 2023 024 [facility] [address] [place], [address], 05/23/2024 11:57:32 tramadol 50 mg tablet [address] [facility] [address] [facility], [place], [address], 05/24/2024 09:44:01 cyclobenz aprine 10 mg tablet 2023 024 [facility] [address], [address] [facility], [place], [address], 05/23/2024 11:57:33 atorvasta tin 40 mg tablet 2023 024 [facility] [address], [address] [facility], [place], [address], 05/23/2024 11:57:31 pantopraz ole 40 mg tablet,de layed release 2023 024 [facility] [address], [address] [facility], [place], [address], 05/23/2024 11:57:33 ergocalci ferol (vitamin D2) 1,250 mcg (50,000 unit) capsule 2023 024 [facility] [address], [address] [facility], [place], [address], 05/23/2024 11:57:32 lisinopri l 30 mg tablet 2023 024 [facility] [address], [address] [facility], [place], [address], 05/23/2024 11:57:33 atenolol 25 mg tablet 2023 024 [facility] [address], [address] [facility], [place], [address], 05/23/2024 11:57:32 gabapenti n 100 mg capsule 2024 025 [facility] [address] [place], [address], 08/23/2024 13:02:26 oxybutyni n chloride ER 15 mg tablet,ex tended release 24 hr 2024 025 [facility] [address] [place], [address], 08/23/2024 13:02:25 metformin 500 mg tablet 2024 025 [facility] [address] [place], [address], 08/23/2024 13:02:24 tramadol 50 mg tablet 2024 025 [facility] [address] [place], [address], 08/23/2024 13:02:43 cyclobenz aprine 10 mg tablet 2024 025 [facility] [address] [place], [address], 08/23/2024 13:02:28 atorvasta tin 40 mg tablet 2024 025 [facility] [address] [place], [address], 08/23/2024 13:02:27 pantopraz ole 40 mg tablet,de layed release 2024 025 [facility] [address] [place], [address], 08/23/2024 13:02:27 ergocalci ferol (vitamin D2) 1,250 mcg (50,000 unit) capsule 2024 025 [facility] [address] [place], [address], 08/23/2024 13:02:32 nystatin 100,000 unit/gram topical powder 2024 025 [facility] [address] [place], [address], 08/23/2024 13:02:33 lisinopri l 30 mg tablet 2024 025 [facility] [address] [place], [address], 08/23/2024 13:02:25 atenolol 25 mg tablet 2024 025 [facility] [address] [place], [address], 08/23/2024 13:02:29 Patient TargetsNo targets recorded. Patient Instructions Encounter Date Encounter Id Patient Instructions Last Modified By Organization Details Last Modified Time 08/10/2023 [id number] body mass index: care instructions [email or web address] Not available 08/10/2023 10:33:33 learning about healthy weight [email or web address] Not available 08/10/2023 10:33:34 abnormal sweating: care instructions [email or web address] Not available 08/10/2023 10:33:34 learning about type 2 diabetes [email or web address] Not available 08/10/2023 10:33:34 type 2 diabetes: care instructions Not available 08/10/2023 10:33:34 back care and preventing injuries: care instructions [email or web address] Not available 08/10/2023 10:33:34 low back pain: exercises Not available 08/10/2023 10:33:33 11/09/2023 [id number] learning about type 2 diabetes Not available 11/09/2023 11:04:31 type 2 diabetes: care instructions [email or web address] Not available 11/09/2023 11:04:31 back care and preventing injuries: care instructions [email or web address] Not available 11/09/2023 11:04:31 low back pain: exercises [email or web address] Not available 11/09/2023 11:04:31 body mass index: care instructions [email or web address] Not available 11/09/2023 11:04:31 learning about healthy weight [email or web address] Not available 11/09/2023 11:04:30 02/06/2024 [id number] learning about type 2 diabetes [email or web address] Not available 02/06/2024 11:35:27 type 2 diabetes: care instructions Not available 02/06/2024 11:35:27 back care and preventing injuries: care instructions [email or web address] Not available 02/06/2024 11:35:27 low back pain: exercises Not available 02/06/2024 11:35:26 A healthy lifestyle: care instructions [email or web address] Not available 02/06/2024 11:35:27 chest pain: care instructions Not available 02/06/2024 11:35:27 05/23/2024 [id number] back care and preventing injuries: care instructions [email or web address] Not available 05/23/2024 11:57:18 low back pain: exercises [email or web address] Not available 05/23/2024 11:57:18 A healthy lifestyle: care instructions [email or web address] Not available 05/23/2024 11:57:18 08/23/2024 [id number] learning about type 2 diabetes Not available 08/23/2024 13:02:09 type 2 diabetes: care instructions [email or web address] Not available 08/23/2024 13:02:08 back care and preventing injuries: care instructions [email or web address] Not available 08/23/2024 13:02:09 low back pain: exercises [email or web address] Not available 08/23/2024 13:02:09 A healthy lifestyle: care instructions [email or web address] Not available 08/23/2024 13:02:09 Reason for Referral None Reported. Results Created Date Observation Date Name Description Value Unit Range Abnormal Flag Note LastModifiedBy Organization Detail LastModifiedTime 08/10/19 24 08/10/2023 HbA1c (hemo globi n A1c), blood HbA1c 5.8 Not Available In-Office Order Internal Use Only DO Not Attach Compendium DO Not Attach Compendium, Do Not Delete/merge, [id number] 08/10/2023 10:08:22 08/13/19 24 08/14/2023 ALBUM IN/CR EATIN INE RATIO ,URIN E creatinine, urine 119.5 mg/dL notest ab. Not Available [facility] [address], [place], [address], 08/14/2023 10:08:28 08/13/19 24 08/14/2023 ALBUM IN/CR EATIN INE RATIO ,URIN E albumin, urine 19.5 ug/mL notest ab. Not Available [address], [address], 08/14/2023 10:08:28 08/13/19 24 08/14/2023 ALBUM IN/CR EATIN INE RATIO ,URIN E alb/creat ratio 16 mg/g_ creat 0-29 Christina l: 0 - 29 Moder ately incre ased: 30 - 300 Sever deshawn incre ased: >300 Not Available [address], [address], 08/14/2023 10:08:28 08/13/19 24 08/14/2023 TSH+F REE T4 TSH 0.711 uIU/m L 0.450- 4.500 Not Available [address], [address], 08/14/2023 10:08:29 08/13/19 24 08/14/2023 TSH+F REE T4 T4,free(dire ct) 1.27 NG/dL 0.82-1 .77 Not Available [address], [address], 08/14/2023 10:08:29 08/13/19 24 08/14/2023 LIPID PANEL cholesterol, total 126 mg/dL 100-19 9 Not Available [address], [address], 08/14/2023 10:08:31 08/13/19 24 08/14/2023 LIPID PANEL triglyceride s 92 mg/dL 0-149 Not Available [address], [address], 08/14/2023 10:08:31 08/13/19 24 08/14/2023 LIPID PANEL HDL cholesterol 35 mg/dL >39 below low normal Not Available [address], [address], 08/14/2023 10:08:31 08/13/19 24 08/14/2023 LIPID PANEL VLDL cholesterol delroy 18 mg/dL 5-40 Not Available [address], [address], 08/14/2023 10:08:31 08/13/19 24 08/14/2023 LIPID PANEL LDL chol calc (nih) 73 mg/dL 0-99 Not Available [address], [address], 08/14/2023 10:08:31 08/13/19 24 08/14/2023 COMP. METAB OLIC PANEL (14) glucose 123 mg/dL 70-99 above high normal Not Available [address], [address], 08/14/2023 10:08:32 08/13/19 24 08/14/2023 COMP. METAB OLIC PANEL (14) BUN 16 mg/dL 6-24 Not Available [address], [address], 08/14/2023 10:08:32 08/13/19 24 08/14/2023 COMP. METAB OLIC PANEL (14) creatinine 0.64 mg/dL 0.57-1 .00 Not Available [address], [address], 08/14/2023 10:08:32 08/13/19 24 08/14/2023 COMP. METAB OLIC PANEL (14) eGFR 113 mL/mi n/1.7 3 >59 Not Available [address], [address], 08/14/2023 10:08:32 08/13/19 24 08/14/2023 COMP. METAB OLIC PANEL (14) BUN/creatini ne ratio 25 9-23 above high normal Not Available [address], [address], 08/14/2023 10:08:32 08/13/19 24 08/14/2023 COMP. METAB OLIC PANEL (14) sodium 138 mmol/ L 134-14 4 Not Available [address], [address], 08/14/2023 10:08:32 08/13/19 24 08/14/2023 COMP. METAB OLIC PANEL (14) potassium 4.1 mmol/ L 3.5-5. 2 Not Available [address], [address], 08/14/2023 10:08:32 08/13/19 24 08/14/2023 COMP. METAB OLIC PANEL (14) chloride 101 mmol/ L 96-106 Not Available [address], [address], 08/14/2023 10:08:32 08/13/19 24 08/14/2023 COMP. METAB OLIC PANEL (14) carbon dioxide, total 23 mmol/ L 20-29 Not Available [address], [address], 08/14/2023 10:08:32 08/13/19 24 08/14/2023 COMP. METAB OLIC PANEL (14) calcium 9.6 mg/dL 8.7-10 .2 Not Available [address], [address], 08/14/2023 10:08:32 08/13/19 24 08/14/2023 COMP. METAB OLIC PANEL (14) protein, total 7.0 g/dL 6.0-8. 5 Not Available [address], [address], 08/14/2023 10:08:32 08/13/19 24 08/14/2023 COMP. METAB OLIC PANEL (14) albumin 4.3 g/dL 3.9-4. 9 Not Available [address], [address], 08/14/2023 10:08:32 08/13/19 24 08/14/2023 COMP. METAB OLIC PANEL (14) globulin, total 2.7 g/dL 1.5-4. 5 Not Available [address], [address], 08/14/2023 10:08:32 08/13/19 24 08/14/2023 COMP. METAB OLIC PANEL (14) A/G ratio 1.6 1.2-2. 2 Not Available [address], [address], 08/14/2023 10:08:32 08/13/19 24 08/14/2023 COMP. METAB OLIC PANEL (14) bilirubin, total 0.3 mg/dL 0.0-1. 2 Not Available [address], [address], 08/14/2023 10:08:32 08/13/19 24 08/14/2023 COMP. METAB OLIC PANEL (14) alkaline phosphatase 51 IU/L 44-121 Not Available [address], [address], 08/14/2023 10:08:32 08/13/19 24 08/14/2023 COMP. METAB OLIC PANEL (14) AST (SGOT) 12 IU/L 0-40 Not Available [address], [address], 08/14/2023 10:08:32 08/13/19 24 08/14/2023 COMP. METAB OLIC PANEL (14) ALT (SGPT) 10 IU/L 0-32 Not Available [address], [address], 08/14/2023 10:08:32 08/13/19 24 08/14/2023 CBC WITH DIFFE RENTI AL/PL ATELE T WBC 9.3 x10e3 /uL 3.4-10 .8 Not Available [address], [address], 08/14/2023 10:08:33 08/13/19 24 08/14/2023 CBC WITH DIFFE RENTI AL/PL ATELE T RBC 4.01 x10e6 /uL 3.77-5 .28 Not Available [address], [address], 08/14/2023 10:08:33 08/13/19 24 08/14/2023 CBC WITH DIFFE RENTI AL/PL ATELE T hemoglobin 11.3 g/dL 11.1-1 5.9 Not Available [address], [address], 08/14/2023 10:08:33 08/13/19 24 08/14/2023 CBC WITH DIFFE RENTI AL/PL ATELE T hematocrit 35.6 % 34.0-4 6.6 Not Available [address], [address], 08/14/2023 10:08:33 08/13/19 24 08/14/2023 CBC WITH DIFFE RENTI AL/PL ATELE T MCV 89 fL 79-97 Not Available [address], [address], 08/14/2023 10:08:33 08/13/19 24 08/14/2023 CBC WITH DIFFE RENTI AL/PL ATELE T MCH 28.2 pg 26.6-3 3.0 Not Available [address], [address], 08/14/2023 10:08:33 08/13/19 24 08/14/2023 CBC WITH DIFFE RENTI AL/PL ATELE T MCHC 31.7 g/dL 31.5-3 5.7 Not Available [address], [address], 08/14/2023 10:08:33 08/13/19 24 08/14/2023 CBC WITH DIFFE RENTI AL/PL ATELE T RDW 11.6 % 11.7-1 5.4 below low normal Not Available [address], [address], 08/14/2023 10:08:33 08/13/19 24 08/14/2023 CBC WITH DIFFE RENTI AL/PL ATELE T platelets 387 x10e3 /uL 150-45 0 Not Available [address], [address], 08/14/2023 10:08:33 08/13/19 24 08/14/2023 CBC WITH DIFFE RENTI AL/PL ATELE T neutrophils 73 % notest ab. Not Available [address], [address], 08/14/2023 10:08:33 08/13/19 24 08/14/2023 CBC WITH DIFFE RENTI AL/PL ATELE T lymphs 23 % notest ab. Not Available [address], [address], 08/14/2023 10:08:33 08/13/19 24 08/14/2023 CBC WITH DIFFE RENTI AL/PL ATELE T monocytes 4 % notest ab. Not Available [address], [address], 08/14/2023 10:08:33 08/13/19 24 08/14/2023 CBC WITH DIFFE RENTI AL/PL ATELE T eos 0 % notest ab. Not Available [address], [address], 08/14/2023 10:08:33 08/13/19 24 08/14/2023 CBC WITH DIFFE RENTI AL/PL ATELE T basos 0 % notest ab. Not Available [address], [address], 08/14/2023 10:08:33 08/13/19 24 08/14/2023 CBC WITH DIFFE RENTI AL/PL ATELE T neutrophils (absolute) 6.7 x10e3 /uL 1.4-7. 0 Not Available [address], [address], 08/14/2023 10:08:33 08/13/19 24 08/14/2023 CBC WITH DIFFE RENTI AL/PL ATELE T lymphs (absolute) 2.1 x10e3 /uL 0.7-3. 1 Not Available [address], [address], 08/14/2023 10:08:33 08/13/19 24 08/14/2023 CBC WITH DIFFE RENTI AL/PL ATELE T monocytes(ab solute) 0.4 x10e3 /uL 0.1-0. 9 Not Available [address], [address], 08/14/2023 10:08:33 08/13/19 24 08/14/2023 CBC WITH DIFFE RENTI AL/PL ATELE T eos (absolute) 0.0 x10e3 /uL 0.0-0. 4 Not Available [address], [address], 08/14/2023 10:08:33 08/13/19 24 08/14/2023 CBC WITH DIFFE RENTI AL/PL ATELE T baso (absolute) 0.0 x10e3 /uL 0.0-0. 2 Not Available [address], [address], 08/14/2023 10:08:33 08/13/19 24 08/14/2023 CBC WITH DIFFE RENTI AL/PL ATELE T immature granulocytes 0 % notest ab. Not Available [address], [address], 08/14/2023 10:08:33 08/13/19 24 08/14/2023 CBC WITH DIFFE RENTI AL/PL ATELE T immature grans (abs) 0.0 x10e3 /uL 0.0-0. 1 Not Available [address], [address], 08/14/2023 10:08:33 08/13/19 24 08/14/2023 DIABE SUZI PATIE NT EDUCA TION pdf Not applic able Not Available [address], [address], 08/14/2023 10:08:29 08/13/19 24 08/14/2023 DIABE SUZI PATIE NT EDUCA TION pdf . Not Available [address], [address], 08/14/2023 10:08:33 11/09/19 24 11/09/2023 HbA1c (hemo globi n A1c), blood HbA1c 6.2 Not Available In-Office Order Internal Use Only DO Not Attach Compendium DO Not Attach Compendium, Do Not Delete/merge, [id number] 11/09/2023 10:40:48 02/06/20 24 02/06/2024 HbA1c (hemo globi n A1c), blood HbA1c 6.5 Not Available In-Office Order Internal Use Only DO Not Attach Compendium DO Not Attach Compendium, Do Not Delete/merge, [id number] 02/06/2024 10:56:44 06/06/2006/07/2024 DRUG PROFI LE,UR ,9 DRUGS ,BUND amphetamines , urine NEGATI VE NG/mL cutoff =1000 Amphe tamin e test inclu calvin Amphe tamin e and Metha mphet amine . Not Available [facility] ([facility]) [address] [place], [address], 06/07/2024 15:12:41 06/06/20 24 06/07/2024 DRUG PROFI LE,UR ,9 DRUGS ,BUND barbiturate NEGATI VE NG/mL cutoff =300 Not Available [facility] ([facility]) [address] [place], [address], 06/07/2024 15:12:41 06/06/20 24 06/07/2024 DRUG PROFI LE,UR ,9 DRUGS ,BUND benzodiazepi nishi NEGATI VE NG/mL cutoff =300 Not Available [facility] ([facility]) [address] [place], [address], 06/07/2024 15:12:41 06/06/20 24 06/07/2024 DRUG PROFI LE,UR ,9 DRUGS ,BUND cannabinoid NEGATI VE NG/mL cutoff =50 Not Available [facility] ([facility]) [address] [place], [address], 06/07/2024 15:12:41 06/06/20 24 06/07/2024 DRUG PROFI LE,UR ,9 DRUGS ,BUND cocaine (metab.) NEGATI VE NG/mL cutoff =300 Not Available [facility] ([facility]) [address] [place], [address], 06/07/2024 15:12:41 06/06/20 24 06/07/2024 DRUG PROFI LE,UR ,9 DRUGS ,BUND opiates NEGATI VE NG/mL cutoff =300 Opiat e test inclu calvin Codei ne and Morph ine only. Not Available [facility] ([facility]) [address] [facility], [place], [address], 06/07/2024 15:12:41 06/06/20 24 06/07/2024 DRUG PROFI LE,UR ,9 DRUGS ,BUND phencyclidin e NEGATI VE NG/mL cutoff =25 Not Available [facility] ([facility]) [address] [facility], [place], [address], 06/07/2024 15:12:41 06/06/20 24 06/07/2024 DRUG PROFI LE,UR ,9 DRUGS ,BUND methadone screen, urine NEGATI VE NG/mL cutoff =300 Not Available [facility] ([facility]) [address] [facility], [place], [address], 06/07/2024 15:12:41 06/06/20 24 06/07/2024 DRUG PROFI LE,UR ,9 DRUGS ,BUND propoxyphene , urine NEGATI VE NG/mL cutoff =300 Not Available [facility] ([facility]) [address] [facility], [place], [address], 06/07/2024 15:12:41 11/10/19 24 11/10/2023 XR, wrist + hand No observ ation record ed. [facility] [address] [place], [address], 11/14/2023 13:13:01 05/18/20 24 05/08/2024 MRI, lumba r spine , w/o contr ast No observ ation record ed. [email or web address] [facility] [address], [place], [address], 05/23/2024 16:05:54 05/21/2005/08/2024 MRI, lumba r spine , w/o contr ast No observ ation record ed. [email or web address] [facility] [address], [place], [address], 05/30/2024 11:07:14 Result Notes None recorded. Problems Name Problem SNOMED Code Status Onset Date Resolution Date Notes Provider Name and Address Organization Details Recorded Time Low back pain 235061058 Active 2017 [facility]in [facility] with [facility] [place]. Medical branch nerve blocks and radiofre quency ablation on 01/23/2020 . Not Available [facility] 2 14:21:54 Obesity 087615764 Active 2017 Not Available [facility] 2 14:21:54 Headache 65548612 Active 2017 Not Available [facility] 2 14:21:54 Body mass index 40+ - severely obese 107160365 Active 2017 Not Available [facility] 2 14:21:54 Hyperlip idemia 24991264 Active 2017 ALEJANDRA RAZA PA-C Attn: Accounting ,[address] [place], [address] , [facility] 4 10:48:16 Generali zed anxiety disorder 04782640 Active 2018 Not Available [facility] 2 14:21:54 Impaired glucose toleranc e 3740359 Completed 201810/23/2020 RUDI COELHO Attn: Accounting ,[address] [place], [address] , [facility] 1 10:59:19 Type 2 diabetes mellitus 91747724 Active 2019 New diagnosi s on 02/18/2020 . HgbA1c was 6.6 ALEJANDRA RAZA PA-C Attn: Accounting ,[address] [facility], [place], [address] , [place] [facility] 4 10:48:21 Helicoba cter pylori gastroin testinal tract infectio n 663344336 Active 2019 Not Available [facility] 2 14:21:54 Urinary tract infectio us disease 62943149 Completed 02/26/2019 RUDI COELHO Attn: Accounting ,[address] [facility], [place], [address] , [place] [facility] 9 12:45:02 Tinea corporis 21296716 Active Not Available [facility] 2 14:21:54 Chronic gastriti s 8241658 Active 2022 ALEJANDRA RAZA PA-C Attn: Accounting ,[address] [facility], [place], [address] , [place] [facility] 4 10:48:13 [facility] hyperten gurvinder 34636112 Active 2023 ALEJANDRA RAZA PA-C Attn: Accounting ,[address] [facility], [place], [address] , [place] [facility] 4 10:48:06 Amenorrh ea 06466015 Completed 05/19/2017 Dhiraj Smith null, [place] [facility] 7 11:07:31 Amenorrh ea 66106855 Completed Dhiraj [place] [facility] 5 12:13:14 Enlarged uterus 928083079 Completed 05/19/2017 Dh[place] [facility] 7 11:07:33 Enlarged uterus Completed Dh[place] [facility] 5 12:13:14 Genital herpes simplex 96293097 Completed 05/16/2019 Marie Beal [place] [facility] 9 16:06:17 Genital herpes simplex 45981540 Completed Dhir[place] [facility] 5 12:13:14 Vitamin D deficien cy 30821196 Active Not Available [facility] 2 14:21:54 Vitamin D deficien cy 53156188 Completed Dhiraj donaldson, [place] [facility] 5 12:13:14 Bacteria l vaginosi s 634220785 Completed 02/26/2019 RUDI COELHO Attn: Accounting ,[address] [facility], [place], [address] , [place] [facility] 9 12:44:55 Bacteria l vaginosi s 666848552 Completed Dhiraj [place]dson[place] [facility] 5 12:13:14 Gastroes ophageal reflux disease 295717465 Active Not Available [facility] 2 14:21:54 Gastroes ophageal reflux disease 829518754 Completed Dhiraj donaldson[place] [facility] 5 12:13:14 Abdomina l pain 01945370 Completed 05/19/2017 Dhiraj [place] [facility] 7 11:07:36 Abdomina l pain 05003147 Com[place] Dhiraj [place] [facility] 5 12:13:14 Uterine leiomyom a 90312899 Completed 05/19/2017 Dhiraj [place] [facility] 7 11:07:58 Uterine leiomyom a 36702500 Com[place] Dh[place] [facility] 5 12:13:14 Herpes simplex 40890142 Completed 05/19/2017 Dh[place] [facility] 7 11:07:55 Herpes simplex 40154991 Completed Dh[place] [facility] 5 12:13:14 Postpart [facility] [id number] Completed 05/19/2017 Dhiraj [place] [facility] 7 11:07:50 Postpart [facility] [id number] Completed Dhiraj [place]on[place] [facility] 5 12:13:14 Constipa tion 68424251 Completed 02/26/2019 RUDI COELHO Attn: Accounting ,[address] [facility], [place], [address] , [place] [facility] 9 12:44:29 Constipa tion 39461325 Completed Dhiraj donaldson, [place] - [facility] 5 12:13:14 Anemia 549612745 Active Not Available [facility] 2 14:21:54 Hot flash caused by medicati on 550722259 Completed 05/19/2017 Dhiraj donaldson, [place] - [facility] 7 11:07:45 Postsurg ical menopaus e 216564147 Active Hx of MARY-BSO 11/2015 RUDI COELHO Attn: Accounting ,[address] [place], [address] , [facility] 2 13:45:44 Problem Notes None recorded. Procedures Surgical History Date Name Laterality Status Provider Name and Address Organization Details Recorded Time 09/16 esophagogastroduodenoscopy completed RUDI ROBERSON Attn: Accounting ,[address] [place], [address] , [facility] 3 21:37:44 11/19 Date of Last Mammogram completed Dinah Rodriguez [place] - [facility] 4 11:25:11 05/28 Depo Injection completed Dhiraj Smith [facility] 5 12:15:58 07/18 Date of Last Pap Smear completed Dinah Rodriguez [place] [facility] 5 11:49:58 12/04 total abdominal hysterectomy with bilateral salpingo-oophorectomy completed RUDI COELHO Attn: Accounting ,[address] [facility], [place], [address] , [facility] 2 13:45:27 Imaging Results Imaging Date Name Status [facility] by [facility] Details LastModified Time 11/10/2023 XR, wrist + hand completed [facility] [address] [place], [address], 11/14/2023 13:13:01 05/08/2024 MRI, lumbar spine, w/o contrast completed [address] [facility] [address], [place], [address], 05/23/2024 16:05:54 05/08/2024 MRI, lumbar spine, w/o contrast completed [email or web address] [address], [place], [address], 05/30/2024 11:07:14 Procedure Notes None recorded. Medical Equipment None Reported. Allergies No known drug allergies Medications Name Sig Start Date Stop Date Status Note LastModified by Organization Details LastModified Time stool softnr cap 100mg 05/19 completed Not Available Not Available Not Available Prescripti on - New 05/19 completed Not Available Not Available Not Available Prescripti on - Prior Authorizat ion Request 05/19 completed Not Available Not Available Not Available multivitam in tablet Take 1 tablet every day by oral route. 10/13 completed Not Available Not Available Not Available cyclobenza shiva 10 mg tablet Take 1 tablet 3 times a day by oral route as needed for 30 days. 2024 active Not Available Not Available Not Avai lable amoxicilli n 500 mg capsule TAKE 1 CAPSULE BY MOUTH EVERY 8 HOURS DIRECTED FOR 10 DAYS 08/10 completed Not Available Not Available Not Available atorvastat in 40 mg tablet Take 1 tablet every day by oral route at bedtime for 30 days. 2024 active Not Available Not Available Not Avai lable methocarba mol 500 mg tablet 10/23 completed Not Available Not Available Not Available metformin 500 mg tablet Take 1 tablet twice a day by oral route for 30 days. 2024 active Not Available Not Available Not Avai lable acetaminop hen 325 mg tablet Take 2 tablets every 6 hours by oral route. 05/19 completed Not Available Not Available Not Available oxybutynin chloride ER 15 mg tablet,ext ended release 24 hr Take 1 tablet every day by oral route for 30 days. 2024 active Not Available Not Available Not Avai lable doxycyclin e hyclate 100 mg capsule Take 1 capsule twice a day by oral route for 14 days. 06/18 completed Not Available Not Available Not Available paroxetine 10 mg tablet Take 1 tablet every day by oral route. 05/19 completed Not Available Not Available Not Available atorvastat in 20 mg tablet TAKE 1 TABLET BY MOUTH ONCE DAILY DIRECTED 05/06 completed Not Available Not Available Not Available tizanidine 2 mg tablet Take 1 tablet every day by oral route as needed for 30 days. 03/29 completed Not Available Not Available Not Available citalopram 40 mg tablet TAKE 1 TABLET BY MOUTH ONCE DAILY 04/29 completed Not Available Not Available Not Available oxybutynin chloride ER 10 mg tablet,ext ended release 24 hr TAKE 1 TABLET BY MOUTH ONCE DAILY IN THE MORNING active Not Available Not Available No t Available azithromyc in 250 mg tablet 11/07 completed Not Available Not Available Not Available ibuprofen 800 mg tablet 05/19 completed Not Available Not Available Not Available nifedipine 20 mg capsule active Not Available Not Available Not Available citalopram 10 mg tablet Take 1 tablet(s ) every day by oral route as directed for 30 days. 04/01 completed Not Available Not Available Not Available hydrocodon e 5 mg-acetami nophen 325 mg tablet TAKE 1 TABLET BY MOUTH EVERY 6 HOURS NEEDED 08/10 completed Not Available Not Available Not Available ondansetro n HCl 8 mg tablet TAKE 1 TABLET BY MOUTH TWICE DAILY NEEDED FOR 4 DAYS. HOLD MUSCLE RELAXER AND TRAMADOL WHILE TAKING FOR SHORT TIME. 02/03 completed Not Available Not Available Not Available meloxicam 15 mg tablet TAKE 1 TABLET BY MOUTH ONCE DAILY DIRECTED WITH FOOD active Not Available Not Available No t Available lisinopril 20 mg tablet TAKE 1 TABLET BY MOUTH ONCE DAILY DIRECTED FOR 30 DAYS 10/23 completed Not Available Not Available Not Available prednisone 20 mg tablet TAKE 2 TABLETS BY MOUTH ONCE DAILY FOR 5 DAYS 07/01 completed Not Available Not Available Not Available Doc-Q-Lace 100 mg capsule Take 1 capsule twice a day by oral route for 30 days. 05/19 completed Not Available Not Available Not Available metronidaz ole 250 mg tablet Take 1 tablet 4 times a day by oral route for 14 days. 09/08 completed Not Available Not Available Not Available atenolol 25 mg tablet Take 1 tablet every day by oral route for 30 days, for blood pressure . 2024 active Not Available Not Available Not Avai lable Diflucan 150 mg tablet Take 1 tablet by oral route now & repeat in 1 week 2013 active Not Available Not Available Not Avai lable penicillin V potassium 500 mg tablet 11/07 completed Not Available Not Available Not Available metronidaz ole 500 mg tablet Take 1 tablet twice a day by oral route. active Not Available Not Available No t Available acetaminop hen 300 mg-codeine 30 mg tablet Take 1 tablet every day by oral route as needed for 7 days. 08/10 completed Not Available Not Available Not Available aspirin 81 mg tablet,del ayed release Take 1 tablet every day by oral route. active Not Available Not Available No t Available tramadol 50 mg tablet TAKE 1 TABLET BY MOUTH 4 TIMES DAILY 2024 active Not Available Not Available Not Avai lable amoxicilli n 500 mg tablet Take 1 tablet every 8 hours by oral route as directed for 10 days. 08/10 completed Not Available Not Available Not Available acyclovir 800 mg tablet Take 1 tablet by mouth once daily active Not Available Not Available No t Available ketorolac 10 mg tablet 05/19 completed Change Not Available Not Available Not Available Vitamin tablet Take 1 tablet every day by oral route as directed . 05/19 completed Not Available Not Available Not Available meloxicam 7.5 mg tablet TAKE 1 TABLET BY MOUTH EVERY DAY 11/07 completed Not Available Not Available Not Available Lamisil AT 1 % topical cream APPLY TO THE AFFECTED AND SURROUND ING AREAS OF SKIN BY TOPICAL ROUTE twice a day 2013 active Not Available Not Available Not Avai lable oxycodone- acetaminop hen 5 mg-325 mg tablet 05/19 completed Not Available Not Available Not Available citalopram 20 mg tablet TAKE 1 TABLET BY MOUTH ONCE DAILY DIRECTED 10/13 completed Not Available Not Available Not Available famotidine 20 mg tablet TAKE 1 TABLET BY MOUTH TWICE DAILY DIRECTED active Not Available Not Available No t Available dicyclomin e 20 mg tablet 02/26 completed Not Available Not Available Not Available nifedipine 10 mg capsule Take 1 capsule twice a day by oral route as needed. active Not Available Not Available No t Available Bismuth 262 mg chewable tablet Take 1 tablet 4 times a day by oral route for 14 days. 09/08 completed Not Available Not Available Not Available pantoprazo le 40 mg tablet,del ayed release TAKE 1 TABLET BY MOUTH ONCE DAILY 2024 active Not Available Not Available Not Avai lable naproxen sodium 550 mg tablet Take 1 tablet twice a day by oral route. 05/19 completed Not Available Not Available Not Available metformin 1,000 mg tablet Take 1 tablet twice a day by oral route. 02/19 completed Not Available Not Available Not Available Cipro 500 mg tablet Take 1 tablet every 12 hours by oral route. 2013 active Not Available Not Available Not Avai lable triamcinol one acetonide 0.1 % topical ointment APPLY OINTMENT TOPICALL Y EVERY 12 HOURS NEEDED 02/03 completed Not Available Not Available Not Available ranitidine 150 mg tablet 05/19 completed Not Available Not Available Not Available prednisone 50 mg tablet TAKE 1 TABLET BY MOUTH ONCE DAILY 01/24 completed Not Available Not Available Not Available progestero ne micronized 200 mg capsule Take 1 capsule twice a day by oral route for 30 days. 2014 active Not Available Not Available Not Avai lable lisinopril 30 mg tablet Take 1 tablet every day by oral route as directed for 30 days, for blood pressure . 2024 active Not Available Not Available Not Avai lable gabapentin 300 mg capsule TAKE 1 CAPSULE BY MOUTH THREE TIMES DAILY active Not Available Not Available No t Available codeine 10 mg-guaifen esin 100 mg/5 mL oral liquid 05/19 completed Not Available Not Available Not Available norethindr one acetate 5 mg tablet 11/07 completed Not Available Not Available Not Available gabapentin 100 mg capsule Take 2 capsules 3 times a day by oral route as needed for 30 days. 2024 active Not Available Not Available Not Avai lable ergocalcif rachel (vitamin D2) 1,250 mcg (50,000 unit) capsule TAKE 1 CAPSULE BY MOUTH ONCE A WEEK DIRECTED FOR 28 DAYS 2024 active Not Available Not Available Not Avai lable nystatin 100,000 unit/gram topical powder APPLY TO THE AFFECTED AREA(S) BY TOPICAL ROUTE 2 TIMES PER DAY 2024 active Not Available Not Available Not Avai lable ibuprofen 600 mg tablet 05/19 completed Not Available Not Available Not Available methylpred nisolone 4 mg tablets in a dose pack 09/07 completed Not Available Not Available Not Available oxybutynin chloride 5 mg tablet TAKE 1 TABLET BY MOUTH TWICE DAILY DIRECTED 04/01 completed Not Available Not Available Not Available ondansetro n 4 mg disintegra ting tablet 09/07 completed Not Available Not Available Not Available fluticason e propionate 50 mcg/actuat ion nasal spray,susp ension 05/19 completed Not Available Not Available Not Available metformin ER 500 mg tablet,ext ended release 24 hr Take 1 tablet every day by oral route for 90 days, for diabetes . active Not Available Not Available No t Available clotrimazo le 1 % topical cream Apply 1 applicat ion twice a day by topical route as directed for 21 days. 01/27 completed Not Available Not Available Not Available medroxypro gesterone 150 mg/mL intramuscu lar suspension Inject 150 mL every 3 months by intramus cular route. 05/19 completed Not Available Not Available Not Available amoxicilli n 875 mg-potassi um clavulanat e 125 mg tablet 05/19 completed Not Available Not Available Not Available iron 325 mg (65 mg iron) tablet Take 1 tablet(s ) twice a day by oral route. 05/19 completed Not Available Not Available Not Available Alcohol Prep Pads Apply 1 pad every day by topical route as needed for 30 days. 03/11 completed Not Available Not Available Not Available lactulose 10 gram/15 mL oral solution active Not Available Not Available Not Available chlorhexid ine gluconate 0.12 % mouthwash SWISH AND SPIT 15ML BY MOUTH TWICE DAILY DIRECTED FOR 16 DAYS active Not Available Not Available No t Available Calcium with Vitamin D 600 mg-10 mcg (400 unit) tablet Take 1 tablet twice a day by oral route. 09/08 completed Not Available Not Available Not Available Metamucil Sugar-Free (aspartame ) 3.4 gram/5.8 gram oral powder Take 3.4 g every day by oral route as directed for 30 days. 08/10 completed Not Available Not Available Not Available vits 96-ferrous fumarate 27 mg iron-folic acid 800 mcg tablet Take 1 tablet every day by oral route. 2014 active Not Available Not Available Not Avai lable lactulose 10 gram/15 mL (15 mL) oral solution Take 15 mL every day by oral route. 05/19 completed Not Available Not Available Not Available calcium 600 mg (as carbonate) -vitamin D3 20 mcg (800 unit) tablet Take 1 tablet twice a day by oral route for 30 days. 2014 active Not Available Not Available Not Avai lable Linzess 145 mcg capsule Take 1 capsule every day by oral route. 2014 active Not Available Not Available Not Avai lable Brisdelle 7.5 mg capsule Take 1 capsule every day by oral route. 05/19 completed Not Available Not Available Not Available Viibryd 10 mg (7)-20 mg (23) tablets in a dose pack Take 1 tablet every day by oral route. 02/26 completed Not Available Not Available Not Available OneTouch Ultra Blue Test Strip 05/07 completed Not Available Not Available Not Available OneTouch Ultra2 Meter 03/11 completed Not Available Not Available Not Available OneTouch Delica Plus Lancet 33 gauge 10/23 completed Not Available Not Available Not Available Slynd 4 mg (28) tablet active Not Available Not Available Not Available tramadol 100 mg tablet 10/13 completed Not Available Not Available Not Available Vitals Date Recorded Body height Body mass index (BMI) Body weight Body temperature Oxygen saturation Oxygen saturation in Arterial blood by Pulse oximetry Heart rate Systolic blood pressure Diastolic blood pressure Provider Name and Address Organization Details Last Updated DateTime 4 167.64 cm 43.4 kg/m2 330201. 63 g 99.1 [degF] 96 % 96 % 125 /min 130 mm[Hg] 82 mm[Hg] Leyla Palm [place] [facility] 4 10:01:08 Date Recorded Body height Body mass index (BMI) Body weight Oxygen saturation Oxygen saturation in Arterial blood by Pulse oximetry Heart rate Systolic blood pressure Diastolic blood pressure Provider Name and Address Organization Details Last Updated DateTime 4 167.64 cm 44.7 kg/m2 123915. 01 g 97 % 97 % 98 /min 130 mm[Hg] 86 mm[Hg] Leyla Palm MA [place] [facility] 4 10:33:05 Date Recorded Body height Body mass index (BMI) Body weight Oxygen saturation Oxygen saturation in Arterial blood by Pulse oximetry Heart rate Systolic blood pressure Diastolic blood pressure Provider Name and Address Organization Details Last Updated DateTime 4 167.64 cm 45.5 kg/m2 263981. 41 g 94 % 94 % 111 /min 132 mm[Hg] 82 mm[Hg] Leyla Palm MA [facility] 4 10:53:49 Date Recorded Body height Body mass index (BMI) Body weight Oxygen saturation Oxygen saturation in Arterial blood by Pulse oximetry Heart rate Systolic blood pressure Diastolic blood pressure Provider Name and Address Organization Details Last Updated DateTime 4 167.64 cm 46.5 kg/m2 874159 g 98 % 98 % 97 /min 140 mm[Hg] 76 mm[Hg] Dinah Rodriguez [place] [facility] 4 11:28:08 Date Recorded Body height Body mass index (BMI) Body weight Oxygen saturation Oxygen saturation in Arterial blood by Pulse oximetry Heart rate Body temperature Systolic blood pressure Diastolic blood pressure Provider Name and Address Organization Details Last Updated DateTime 5 167.64 cm 46.2 kg/m2 729342. 42 g 95 % 95 % 88 /min 98.6 [degF] 136 mm[Hg] 84 mm[Hg] Leyla Palm MA [facility] 5 11:25:41 Social History Question Answer Notes LastModified by Organizat ion Details LastModified Time Tobacco Smoking Status Never Smoker Dinah Rodriguez MA null, [facility] 12/04/2014 11:58:17 Do You Have An Advance Directive? No Information not available 12/04/2014 What Is Your Level Of Alcohol Consumption? None Information not available 12/04/2014 If You Are , What Was Your Level Of Alcohol Consumption Prior To ? None Information not available 12/04/2014 Is Anesthesia Consult Planned? No Information not available 12/04/2014 Plan No Information no t available 12/04/2014 Is Blood Transfusion Acceptable In An Emergency? Yes Information not available 12/04/2014 What Is Your Level Of Caffeine Consumption? Heavy Information not available 12/04/2014 Live With Cats/exposure To Cat Litter No Information not available 12/04/2014 How Much Tobacco Do You Chew? None Information not available 12/04/2014 Are You Currently Employed? Yes Information not available 12/04/2014 What Type Of Diet Are You Following? REGULAR Information not available 12/04/2014 Which Illicit Or Recreational Drugs Have You Used? None Information not available 07/16/2015 Do You Or Have You Ever Used E-cigarettes Or Vape? 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 No Information no t available 12/04/2014 Frequent Air Travel No Information not available 12/04/2014 Live Alone Or With Others? With Others Information not available 12/04/2014 Marital Status Domestic Partner Information not available 04/02/2015 What Was The Date Of Your Most Recent Tobacco Screening? 08/23/2024 [email or web address] Information not available 08/23/2024 How Many Children Do You Have? 0 Information not available 12/04/2014 Performs Monthly Self-breast Exam? No Information no t available 07/16/2015 Do You Use Protection During Sex? Usually Information not available 07/16/2015 What Is Your Relationship Status? Single Information not available 07/16/2015 Seat Belts Used Routinely Yes Information not available 12/04/2014 Are You Sexually Active? No Information not available 12/04/2014 Do You Have Smoke And Carbon Monoxide Detectors In Your Home? Yes Information not available 12/04/2014 Are You Passively Exposed To Smoke? No Information no t available 12/04/2014 Do You Or Have You Ever Used Smokeless Tobacco? Never Used Smokeless Tobacco Information not available 01/28/2020 How Much Tobacco Do You Smoke? No Information not available 12/04/2014 Smoking Pre- No Information not available 12/04/2014 General Stress Level Low Information not available 12/04/2014 Do You Use Sunscreen Routinely? No Information not available 12/04/2014 Has Tobacco Cessation Counseling Been Provided? Yes Information not available 05/23/2024 On What Date Was Tobacco Cessation Counseling Provided? 05/23/2024 Information not available 05/23/2024 How Many Years Have You Smoked Tobacco? 0 [email or web address] Information not available 02/05/2020 Do You Or Have You Ever Used Any Other Forms Of Tobacco Or Nicotine? No Information not available 05/23/2024 Sex: Female Functional Status Question Answer Note LastModified by Organizat ion Details LastModified Time What is your exercise level? Occasional Information not available 12/04/2014 Mental Status None recorded. Family History Relationship Description Onset Age of this Age Resolved Age Notes LastModified by Organization Details LastModified Time Mother Diabetes mellitus hypert ension [email or web address] Not available 12/29/2015 15:05:25 Sister Diabetes mellitus [email or web address] Not available 12/28 15:05:25 Medical History Condition Response Coronary Artery Disease N Blood Diseases N Kidney Cyst N Hyperthyroidism N Blood Transfusion N MRSA N Blood disorders N Emphysema N COPD N Blood Clots N Depression N Pneumonia N Peripheral Arterial Disease N Premature N Edema N TIA N Headaches/Migraines Y Anxiety Disorder N Obesity N Infertility N Polyps N Acid Reflux (GERD) N Hematuria N Stroke N Neck Injury N Polio N Hospital Admission other than N Neurologic Disorder N Other Sleep Disorders N Rheumatoid Arthritis N Fibromyalgia N Abdominal Aortic Aneurysm Repair N Kidney Disease N Heart Conditions N Heart Disease/Heart Problems N Hospitalizations N Brain Tumors N Acne N Eating Disorder N Skin Problems N Constipation N Meningitis N Tuberculosis N Cerebral Palsy N Myocardial Infarction N Asthma N Substance Abuse N Peripheral Vascular Disease N Vertigo N Sleep Disorder N Cirrhosis N Pulmonary Embolism N Chicken Pox Y Flomax Use Past or Present N Hematologic Disease N Anxiety/Depression N Thyroid Disease N Colon Cancer N Glaucoma N Lung Disease N Developmental or Behavioral Disorders N Bipolar N Pacemaker N Diverticulitis/Diverticulosis N Anesthesia Complications N Orthopedic Problems N Orthotics N Head Injury/Concussion N Congenital Anomalies N Leal Bite N Chronic Kidney Disease N Endometriosis N Liver Disease N Dialysis N Schizophrenia N Speech Delay N Chronic Obstructive Pulmonary Disease N Parkinson's Disease N Thyroid Problems N GI Problems N Developmental Delay N Anemia Y Immune System Disorder N Multiple Sclerosis N Colon Polyps N Heart Attack (AL) N Diabetes N Cardiomyopathy N Blood Transfusions N Heart Problems/Murmur N Eye Trauma N Congestive Heart Failure (CHF) N Valvular Heart Disease N Hyperlipidemia N Double Vision N Abuse/Domestic Violence N Hepatitis B N Lupus N Epilepsy/Seizures N Reflux/GERD N Aneurysm N Bronchitis Y Heart Disease N Hypertension N Pre-Eclampsia N Heart Failure N Other Y Gout N High Blood Pressure N Atrial Fibrillation N Kidney Stones N Head Trauma/Injury N Congenital Heart Disease N Spine Problems N Gastrointestinal Disease N Lung Mass N Sinusitis N Obstructive Sleep Apnea N Muscle, Joint, or Bone Problems Y Autoimmune disease N Vision or Eye Problems N Arthritis N Blood Clot N Cancer N Seasonal allergies N Leg or Foot Ulcers N Raynaud's Disease N Aortic Aneurysm N Arrhythmia N Headaches N Heart Problems N Ambloypia N Ear or Hearing Problems N Hyperparathyroidism N Migraines N Artificial Joints N Kidney or Bladder Problems N NSAID Use N Encephalitis N PTSD N Ulcers N Prostate Hypertrophy N Bleeding Disorder N AIDS/HIV N Urinary Tract Infection Y Back Problems N Allergies Y Atrial Flutter N GERD/Reflux N Hepatitis N Autism Spectrum Disorder (ASD) N Breast Cancer N Hernia N Hypothyroidism N Breast Problem N Genitourinary Disease N Deep Vein Thrombosis N Varicose Veins N Cystic Fibrosis N Hearing Loss N Developmental Problems N Carotid Disease N Vitamin D Deficiency N ADHD N Bladder or Kidney Problems N High Cholesterol N [place] N Valvular Abnormalities N Psychiatric/Mental Health Condition N Organ Transplant N Foot Deformity N Allergies/Hayfever Y Dyslipidemia N Hyponatremia N Diabetic Eye Disease N Osteoporosis/Osteopenia N Back Pain N Proteinuria N Mental Illness N Neurological Problems N Ovarian Cancer N Bedwetting N Seizures/Epilepsy N Kidney Failure N Ocular trauma N Dementia N Diverticulitis N Sleep Apnea N Mental Problems N Warfarin Management N Osteoporosis N Gynecological History Statement/Question Response Abnormal Pap N Date of Last Mammogram 11/19/2021 On BCP's at Conception? N STIs/STDs N HPV Vaccine N Age at Menarche 13 Current Control Method Hysterectom y Age at First Child Sexually Active? Y Menses Monthly N Date of Last Pap Smear 07/18/2011 Sexual Problems? N LMP Desired Control Method Hysterectom y Obstetrics History GPAL:G 1 P 0 1 0 1 Type Value Multiple Births 0 Full Term 0 Induced 0 Spontaneous 0 Premature 1 Living 1 Ectopics 0 Total 1 Immunizations Vaccine Type Date Status Note Provider Nam e and Address Organization Details Recorded Time MMR 2 completed Not Available [facility] 06/05/2023 01:09:42 Td (adult), 2 Lf tetanus toxoid, preservative free, adsorbed 7 completed Not Available [facility] 06/05/2023 01:09:42 Past Encounters Encounter ID Performer Location Encounter Start Date Encounter Closed Date Diagnosis/Indication Diagnosis SNOMED-CT Code Diagnosis ICD10 Code Diagnosis Note [id number] Yocasta Adams MA [address] [address] 06/12/2014 15:30:49 06/14/2014 11:07:19 Urinary tract infectious disease [id number] Tinea corporis [id number] HILARIO Carlisle ([employer]) [address] [place] [id number] 12/04/2014 10:59:35 12/04/2014 12:48:51 Amenorrhea [id number] detection examination [id number] Enlarged uterus [id number] [facility] [address] [place] [address] [id number] 12/20/2014 10:42:02 12/20/2014 11:30:54 [id number] HEAVENLY Thorpe ([employer]) [address] [place] [address] [id number] 01/01/2015 11:52:09 01/01/2015 14:23:23 Normal [id number] Wants to deliver vaginally if possible. 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 Wants tubal ligation for contracept ion after delivery. Plans to bottle feed. Gastroesop hageal reflux disease [id number] Abdominal pain 59232241 Female sterilization [id number] Uterine leiomyoma [id number] FIBROID PREVIA SEE ULTRASOUND Herpes simplex 23343232 At [facility] risk of sexually transmitted infection [id number] [facility] [employer]) [address] [place] [address] [id number] 0 01/29/2015 14:15:18 01/29/2015 15:41:34 Normal [id number] Wants to deliver vaginally if possible. 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 Wants tubal ligation for contracept ion after delivery. Plans to bottle feed. Uterine leiomyoma 92506950 FIBROID PREVIA SEE ULTRASOUND Female sterilization 32191295 [id number] [facility] ([employer]) [address] [place] [id number] 03/05/2015 14:15:09 03/05/2015 16:02:16 Normal 28136984 Wants to deliver vaginally if possible. 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 Wants tubal ligation for contracept ion after delivery. Plans to bottle feed. Uterine leiomyoma 66341855 FIBROID PREVIA SEE ULTRASOUND Female sterilization 79709563 Herpes simplex 18335590 [id number] Felix Slater RN [facility] (MA[employer]) [address] [place] [address] [id number] 03/10/2015 09:49:05 03/10/2015 12:28:53 Normal [id number] Wants to deliver vaginally if possible. 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 Wants tubal ligation for contracept ion after delivery. Plans to bottle feed. Enlarged uterus 802885545 Uterine leiomyoma [id number] FIBROID PREVIA SEE ULTRASOUND Female sterilization 42361601 [id number] Talia Green LPN [facility] ([employer]) [address] [place] [address] [id number] 04/02/2015 09:50:15 04/02/2015 11:52:28 Normal 12196528 Wants to deliver vaginally if possible. 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 Wants tubal ligation for contracept ion after delivery. Plans to bottle feed. Uterine leiomyoma [id number] FIBROID PREVIA SEE ULTRASOUND [id number] HILARIO Carlisle ([employer]) [address] [place] [id number] 04/30/2015 09:50:37 04/30/2015 11:49:53 Normal 05175991 Z33.1 Wants to deliver vaginally if possible. 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 Wants tubal ligation for contracept ion after delivery. Plans to bottle feed. Uterine leiomyoma 954393 05 D25.9 FIBROID PREVIA SEE ULTRASOUND [id number] Dhiraj Lee ([employer]) [address] [place] [address] [id number] 05/14/2015 09:36:21 05/14/2015 11:56:40 Normal 55420500 Z33.1 Wants to deliver vaginally if possible. 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 Wants tubal ligation for contracept ion after delivery. Plans to bottle feed. 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 Uterine Fibfoid Embolizati on, was seen at [facility], they reccommend ed that she have surgery-Hy sterectomy in lieu of size position and number of tumors Family luciana nning surveillance 370184428 Z30.09 Pt desires tubal Constipation 98578672 K5 9.00 Enlarged uterus 41522909 4 N85.2 Uses depot contraception 168933991 Z30.013 [id number] Dhiraj Lee ([employer]) [address] [place] [address] [id number] 07/16/2015 09:43:46 07/16/2015 12:14:37 care 966556434 Z39.2 Uterine leiomyoma 555793 05 D25.9 DESIRES HYSTERECTO MY, symptomati c, pressure on bladder and bowel constipati on dyparuenia , desires sterilizat ion will get tubal papers signed [facility] 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 Uterine Fibfoid Embolizati on, was seen at [facility], they reccommend ed that she have surgery-Hy sterectomy in lieu of size position and number of tumors Anemia 839121151 D64.9 Female sterilization 608 73480 Z30.2 Family luciana nning surveillance 449540706 Z30.09 Pt desires tubal [id number] Dhiraj Lee ([employer]) [address] [place] [address] [id number] 0 08/22/2015 14:29:15 08/23/2015 11:24:21 Family planning surveillance 667097817 Z30.09 Pt desires tubal Enlarged uterus 08802537 4 N85.2 [id number] HEAVENLY Thorpe ([employer]) [address] [place] [address] [id number] 08/29/2015 14:49:37 09/09/2015 14:12:33 Uses depot contraception 776111024 Z30.013 [id number] Dhiraj Lee ([employer]) [address] [place] [address] [id number] 11/06/2015 10:12:19 11/06/2015 15:36:56 Uterine leiomyoma 31442374 D25.9 DESIRES HYSTERECTO MY, symptomati c, pressure on bladder and bowel constipati on dyparuenia , desires sterilizat ion will get tubal papers signed [facility] 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 Uterine Fibfoid Embolizati on, was seen at [facility], they reccommend ed that she have surgery-Hy sterectomy in lieu of size position and number of tumors Enlarged uterus 65020588 4 N85.2 Constipation 37097647 K5 9.00 Anemia 002638190 D64.9 Female sterilization 608 92720 Z30.2 Family luciana nning surveillance 815669615 Z30.09 Pt desires tubal Hot flash caused by medication 266289906 R23.2 [id number] Dhiraj Lee ([employer]) [address] [place] [address] [id number] 0 12/29/2015 12:12:05 12/29/2015 15:07:28 Postsurgical menopause 388488363 E89.41 Uterine leiomyoma 473839 05 D25.9 S/P HYSTERECTO MY, symptomati c, pressure on bladder and bowel constipati on dyspareuni a, 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 Uterine Fibfoid Embolizati on, was seen at [facility], they reccommend ed that she have surgery-Hy sterectomy in lieu of size position and number of tumors [id number] Dhiraj Lee ([employer]) [address] [place] [address] [id number] 05/19/2017 10:10:28 05/19/2017 12:10:07 Genital herpes simplex 37478189 A60.9 Postsurgic al menopause 146427300 E89.41 Chronic back pain 954564 002 G89.29 Screening for osteoporosis 549226747 Z13.820 Depressive disorder 3548 9007 F32.9 Referred for counseling [id number] FATOU Yu (Adult Med) [address] [place] [address] [id number] 09/07/2017 14:20:38 09/07/2017 15:10:47 Adult health examination 306421236 Z00.01 Obesity 476692593 E66.9 Advised 30 minutes of exercise 5 days/week Advised to not drink her calories Advised 3 balanced meals/day with plenty of fruits and vegetables Long discussion concerning diet modificati on Gastroesop hageal reflux disease 510695589 K21.9 Advised to stay away from spicy and greasy foodsAdvis ed to stay away from fatty foodsDo not eat within 2 hours of going to bedStay sitting up after mealsNo smoking Low back pain 847278379 M54.[address] Choi - advised that since she is seeing a specialist all care for her lower back goes through him, not through PCP Headache 39334591 R51 Frequent - possibly 2/2 stress, visionAdvi sed vision examAdvise d 1-2L water/day, 30 minutes of exercise/d ayDIscusse d changing her diet and lifestyle prior to trying new meds - patient agreed with planMore fresh fruits and veggies and less fast food [id number] FATOU Yu (Adult Med) [address] [place] [address] [id number] 09/28/2017 09:14:20 09/28/2017 09:51:46 Body mass index 40+ - severely obese 918457380 Z68.41 Advised 30 minutes of exercise 5 days/week Advised to not drink her calories Advised 3 balanced meals/day with plenty of fruits and vegetables Discussed cutting down on fried foods - she is eating fried foods every day Goals: More vegetables Less fried foods, more baked Eat breakfast More fish 30 minutes of exercise daily Hyperlipidemia 99777933 E78.2 No ASCVD benefit at this time [id number] RUDI COELHO (Adult Med) [address] [place] [address] [id number] 12/22/2018 08:12:31 12/25/2018 09:20:15 Low back pain 608462302 M54.5 Takes meloxicam 15 mg prescribed by Israel [facility] clinicS[facility] essful radiofrequ ency neurolysis of R dorsal L5, S1, S2, S3, S4 completed yesterday at [facility]. Complainin g of right leg pain and intermitte nt numbness of right toes.- C/w tylenol for pain as needed (no NSAIDS since taking Meloxicam) .- recommende d heat/ice for pain- recommende d patient call provider at [facility] who did the procedure to ask for recovery informatio n, she agreed- Requesting referral for breast reduction surgery with the hope it may help relieve some back pain (bra size is 32G) Gastroesop hageal reflux disease 220656360 K21.9 c/w pantoprazo le 40 mgWill refill medication today Body mass index 40+ - severely obese 182859989 Z68.42 -Discussed lifestyle modificati ons including 150 minutes moderate intensity exercise per week, restrictin g intake of fast/proce ssed foods, sweets, sugary beverages. Cutaneous horn 568291745 L85.8 Small cutaneous horn present on the right cheek of the face and is bothersome to patientWil l refer to dermatolog y Hypertrophy of breast 37 1145545 N62 - Requesting referral for breast reduction surgery with the hope it may help relieve some back pain (bra size is 32G) [id number] MD Jesus Varghese (Adult Med) [address] [place] [address] [id number] 0 02/26/2019 12:29:35 02/27/2019 09:14:37 Adult health examination 489870229 Z00.00 Will check lab work today, patient is not fasting Generalize d anxiety disorder 20639816 F41.1 Complainin g of intermitte nt lightheade dness, dizziness, nausea, and anxiety episodes since JanuaryCu tly on Citalopram 40 mg, patient doesn't remember why she was started on this medication but Dr. Smith' s note says for depression - Will check lab work first to rule out other reasons for symptoms- If lab work is normal, may consider switching her to a different anxiety medication Lightheadedness 04353485 8 R42 Complainin g of intermitte nt lightheade dness, dizziness, nausea, and anxiety episodes since JanuarySomeon e told her it may be because her sugars are low, she ate something and felt much better so is requesting to be checked for diabetes today Hypertrophy of breast 37 7192814 N62 - At last visit, requested referral for breast reduction surgery with the hope it may help relieve some back pain (bra size is 32G)- Patient states the place we originally sent her did not do breast reduction surgery, so she called us back to let us know and then we never got back to her, will try and find her another location for breast reduction surgery [id number] RUDI COELHO (Adult Med) [address] [place] [address] 11/08/2019 10:05:17 11/12/2019 12:01:43 Low back pain 444531680 M54.5 Follows at [facility] in [place] for her chronic back pain. Patient was seeing Dr. Rees, Dr. Rees's last day was on tuesday, someone from the office reached out to ask if I was willing to refill medication until new physician starts in November. Patient states her pain is being controlled on the current medication , has no complaints . - will send refills of meloxicam, tramadol, and muscle relaxer- continue care with PM when new physician starts Gastroesop hageal reflux disease 131646404 K21.9 - c/w pantoprazo le 40 mg- Will refill medication today Body mass index 40+ - severely obese 824534124 Z68.42 -Discussed lifestyle modificati ons including 150 minutes moderate intensity exercise per week, restrictin g intake of fast/proce ssed foods, sweets, sugary beverages. [id number] RUDI COELHO (Adult Med) [address] [place] [address] 01/28/2020 09:42:28 01/30/2020 10:44:41 Cutaneous horn 256131744 L85.8 Small cutaneous horn present on the right cheek of the face and is bothersome to patient, notes she has developed a couple new horns on the left side of her cheek since last visitReque sting new dermatolog y referral since the last one was given 1 year ago- new referral placed Elevated blood-pressure reading without diagnosis of hypertension 027592694 R03.0 Complainin g of daily bilateral temporal, pressure-l brent headaches x 1-2 weeks.She was at pain management last week and her BP was 162/93.Adm its to constantly sweating throughout the day, worse with any type of activity, history of total hysterecto my back in 2016.No prior history of high blood pressure.- advised patient that her headache is likely due to elevated BP, will monitor headache symptom with BP control- will start on BP medication , take once daily- will send BP cuff to pharmacy, monitor BP daily and especially when symptomati c- return to office in 1-2 weeks [id number] Dhiraj Smith [facility] ([employer]) [address] [place] [address] 02/05/2020 10:05:09 02/06/2020 10:16:43 Postsurgical menopause 036200752 E89.41 Prediabetes 701908265 R7 3.03 [id number] RUDI COELHO (Adult Med) [address] [place] [address] 02/11/2020 10:37:46 02/12/2020 15:54:01 Body mass index 40+ - severely obese 793705483 Z68.42 BMI 46.8She admits to eating fast food almost daily currentlyT his morning she admits to eating egg rolls and fijian fries for breakfastS he is not interested in getting a gastric sleeve or other weight loss surgery, but would like something to help with her satiety -Discussed lifestyle modificati ons including 150 minutes moderate intensity exercise per week, restrictin g intake of fast/proce ssed foods, sweets, sugary beverages- Ordered nutritioni st referral- Plan to check in every month for 3 months, to discuss food, weight check, and work out log before starting her on medication Essential hypertension 91018474 I10 Previously had daily HAs and BP of 162/93, started on Lisinopril 20 mg qDAfter starting the Lisinopril she has had no HAs BP Today: 122/74 c/w Lisinopril 20 mg Discussed DASH diet Advised 30 minutes of exercise minimum daily Advised tobacco, alcohol, caffeine all increase BP Advised goal for BP is <140/90 Contact office if BP is > 140/90 consistent ly DIscussed consequenc es of HTN including kidney, eye, heart damage, stroke, and even RTC 6 months for BP check- Continue with Lisinopril 20 mg qD Adult heal th examination 033136687 Z00.00 Will order lab work today, patient is not fasting, will come back at later time to get these drawn- Ordered CMP, CBC, lipid panel, and Hem A1c to evaluate- Will contact the pt with results Vitamin D deficiency 347 91993 E55.9 Hx of low Vit D level in 02/2019- Ordered Vitamin D, 25 to evaluate- Will contact pt with results Female str ess incontinence 03064103 N39.3 Hx of vaginal in 2015, hysterecto my 2016Since hysterecto my has had incontinen ce/leakage , worsened within the last 2 monthsShe now needs to wear a pad daily to catch urineIncre ased incontinen ce when unable to get to the bathroom in time, sneezing, coughing, and with increased valsalva pressure Discussed with the pt kegel exercises to strengthen the pelvic floor vs oxybutynin medication vs urology referralSh e would like to try kegel exercises and oxybutynin first- Provided kegel exercises and pelvic floor exercises- Ordered oxybutynin 5 mg BID x 30 days- Follow up in 1 month, if not improved will sent to PT/urology Excessive sweating 42696 005 R61 Pt having diaphoresi s/hot flashesWas started on Metformin 1 g BID and has been having diarrhea- Will screen for diabetes, had impaired glucose tolerance last year- Follow up with Dr. Smith for hot flashes [id number] RUDI COELHO (Adult Med) [address] [place] [address] 02/20/2020 12:42:13 02/21/2020 11:56:07 Type 2 diabetes mellitus 44345660 E11.9 HgbA1c: 6.6 (02/18/2020) Dr. Smith started her on Metformin 1000 mg BID, admits to having GI SE, stopped taking 1 week ago Pt was counseled on low carbohydra te diet to better manage diabetes. We went discussed pt's diet at length and I made specific dietary recommenda tions. I also encouraged regular exercise of 30-60 minutes most days of the week. Pt was encouraged to get yearly diabetic eye exams as well. - Patient advised to try lifestyle changes at home for the next 3-6 months including cutting out sugary foods/carb ohydrates/ sugary drinks, increase exercise, and weight loss. Will continue to monitor, if number continues to rise, patient will be started on lower dose of oral antiglycem ic agent.- Advised the pt to start taking Metformin 500 mg qD in 1 week, hopefully this will help minimize her GI SE- Spoke with the pt about risks and consequenc es of DM, all questions were answered during visit- Advised the pt that right now she does not need to check her fasting BS daily due to her controlled Hem A1C but to check it a few times a week with fasting goal of 100- Advised the pt that we will now need to get eye and foot exam yearly and PNA vaccinatio n- Started the pt on atorvastat in 20 mg qD- Pt advised to contact me if having GI SE- Ordered glucometer , test strips, lancets, and alcohol prep paps for checking BS at home- Follow up in 3 months for repeat testing [id number] RUDI COELHO (Adult Med) [address] [place] [address] 03/11/2020 10:38:50 03/13/2020 13:38:55 Type 2 diabetes mellitus 42422080 E11.9 HgbA1c: 6.6 (02/18/2020) Taking Metformin 500 mg qd, no longer having GI side effects Pt was counseled on low carbohydra te diet to better manage diabetes. We went discussed pt's diet at length and I made specific dietary recommenda tions. I also encouraged regular exercise of 30-60 minutes most days of the week. Pt was encouraged to get yearly diabetic eye exams as well. - Patient advised to try lifestyle changes at home for the next 3-6 months including cutting out sugary foods/carb ohydrates/ sugary drinks, increase exercise, and weight loss.- C/w Metformin 500 mg qd- Advised the pt that right now she does not need to check her fasting BS daily due to her controlled Hem A1C but to check it a few times a week with fasting goal of 100- Advised the pt that we will now need to get eye and foot exam yearly and PNA vaccinatio n- C/w atorvastat in 20 mg qD- Follow up in 3 months for repeat testing Female str ess incontinence 61548492 N39.3 Hx of vaginal in 2014, hysterecto my 2016Since hysterecto my, was having incontinen ce/leakage , was having to wear a pad dailyIncre ased incontinen ce when unable to get to the bathroom in time, sneezing, coughing, and with increased valsalva pressurePt . notes the oxybutynin is helping her urinary frequency and urinary incontinen ce, she is happy with the medication currently. She wants to wait on seeing urology for now. -- C/w kegel exercises and pelvic floor exercises- C/w oxybutynin 5 mg BID x 30 days Body mass index 40+ - severely obese 435914987 Z68.42 BMI 46.8Patien t is trying to eat more healthy and exercise more-Discu ssed lifestyle modificati ons including 150 minutes moderate intensity exercise per week, restrictin g intake of fast/proce ssed foods, sweets, sugary beverages- Ordered nutritioni st referral at last visit- Plan to check in every month for 3 months, to discuss food, weight check, and work out log before starting her on medication [id number] RUDI COELHO [facility] [place] [address] 05/07/2020 08:20:19 05/08/2020 08:20:16 Type 2 diabetes mellitus 84562881 E11.9 HgbA1c: 6.6 (02/18/2020) Taking Metformin 500 mg qd, no longer having GI side effects Pt was counseled on low carbohydra te diet to better manage diabetes. We went discussed pt's diet at length and I made specific dietary recommenda tions. I also encouraged regular exercise of 30-60 minutes most days of the week. Pt was encouraged to get yearly diabetic eye exams as well. - Patient advised to try lifestyle changes at home for the next 3-6 months including cutting out sugary foods/carb ohydrates/ sugary drinks, increase exercise, and weight loss.- C/w Metformin 500 mg qd- Advised the pt that right now she does not need to check her fasting BS daily due to her controlled Hem A1C but to check it a few times a week with fasting goal of 100- Advised the pt that we will now need to get eye and foot exam yearly and PNA vaccinatio n- C/w atorvastat in 20 mg qD- Follow up in 3 months for repeat testing Body mass index 40+ - severely obese [id number] Z68.42 BMI 46.8Patien t is trying to eat more healthy and exercise more-Discu ssed lifestyle modificati ons including 150 minutes moderate intensity exercise per week, restrictin g intake of fast/proce ssed foods, sweets, sugary beverages- Ordered nutritioni st referral at last visit- Plan to check in every month for 3 months, to discuss food, weight check, and work out log before starting her on medication Gastroesop hageal reflux disease [id number] K21.9 History of GERD, currently taking pantoprazo le 40 mg qd.Today, complainin g of worsening intermitte nt epigastric pain for the past couple weeks.- c/w pantoprazo le 40 mg- will add H2 david to help until she can be seen by GI- labs ordered to rule out other causes of epigastric pain- continue with supportive care at home including healthy diet changes, limiting aggravatin g foods, stop eating 2 hours before laying down at night, and elevated head of bed Epigastric pain [id number] R10.13 Today, complainin g of worsening intermitte nt epigastric pain for the past couple weeks.Stat es the pain occurs with all types of food, usually 11/10, and usually worse after eating. The episodes will last for 1-2 hours, only things which help are applying a heating pad to the area and taking left over pain medication . She has also doubled the PPI medication a couple times which has also provided mild relief.She will have to make herself vomit at night due to increased abdominal pressure she is experienci ng. Hx of GERD, currently taking pantoprazo le 40 mg. No prior GI evaluation .Admits to loss of appetite due to the pain and mild constipati on.Denies heavy alcohol abuse, heavy NSAID use, and smoking. Denies RUQ pain.Denie s fever, chills, hematemesi s, diarrhea, hematochez ia, melena, and mucus in the stool.- will place GI referral, may benefit from EGD - would like to test for H pylori but patient is currently taking PPI, will defer to GI- continue with PPI medication daily and supportive care for GERD - will order labs to look for other causes of epigastric pain- Go to ER if symptoms get worse, develops high fever, and/or unable to tolerate PO intake [id number] BRITTON HERNANDEZ NP [facility] [address] [place] [id number] 06/03/2020 13:51:00 06/04/2020 07:48:59 Epigastric pain [id number] R10.13 Stop Meloxicamt o contact prescriber at the [facility] for alternativ esIf H. Pylori test positive, will treat and cancel EGD order. Gastroesop hageal reflux disease [id number] K21.9 Taking pantoprazo le 40 mg daily and famotidine 20 mg BIDWill continue until after EGD results known Type 2 charity betes mellitus [id number] E11.9 [id number] BRITTON HERNANDEZ NP [facility] [address] [place] [address] 06/18/2020 13:54:42 06/19/2020 08:39:32 Helicobacter pylori gastrointestinal tract infection [id number] B96.81 Asymptomat icComplete the last day of medication Will repeat H. Pylori breath test at the end of August 2020 [id number] BRITTON HERNANDEZ NP [facility] [address] [place] [address] 09/08/2020 11:40:58 09/09/2020 08:20:53 Helicobacter pylori gastrointestinal tract infection [id number] B96.81 Completed treatment with pantoprazo le, doxycyclin e, pepto bismol and metronidaz oleAsympto maticH. Pylori breath test today - already ordered. [id number] RUDI COELHO [facility] (Adult Med) [address] [place] [phone] 10/23/2020 10:31:34 10/24/2020 15:44:42 Type 2 diabetes mellitus 02738370 E11.9 Last A1C: 6.4 today (10/23/2020) , 6.6 (02/18/2020) Fasting BG range: Current Therapy: metformin 500 mg QD Statin: atorvastat in 20 mg qd MICHELLE/ARB: lisinopril 20 mg qd Foot Exam: normal today (10/23/2020) Microalbum in: due with next set of labs Eye exam: 11/2019 - normal Pneumovax 23: declined today Pt was counseled on low carbohydra te diet to better manage diabetes. We went discussed pt's diet at length and I made specific dietary recommenda tions. I also encouraged regular exercise of 30-60 minutes most days of the week. Pt was encouraged to get yearly diabetic eye exams as well. - C/w lifestyle changes at home including cutting out sugary foods/carb ohydrates/ sugary drinks, increase exercise, and weight loss. - C/w Metformin 500 mg qd - Advised the pt that right now she does not need to check her fasting BS daily due to her controlled Hem A1C but to check it a few times a week with fasting goal of 100 - Advised the pt that we will now need to get eye and foot exam yearly - C/w atorvastat in 20 mg qD - Follow up in 6 months Gastroesop hageal reflux disease [id number] K21.9 History of GERD, currently taking pantoprazo le 40 mg qd and famotidine , well controlled Today, complainin g of worsening intermitte nt epigastric pain for the past couple weeks. - c/w medication s - continue with supportive care at home including healthy diet changes, limiting aggravatin g foods, stop eating 2 hours before laying down at night, and elevated head of bed Hyperlipidemia 39088519 E78.5 02/18/2020: HDL slightly low and LDL slightly elevated (prior to starting statin medication ) - c/w atorvastat in 20 mg qd Low back pain [id number] M54.5 She is still following with pain management for her chronic back pain but they are still working on finding a new provider to take over so currently getting medication s through me. She is taking meloxicam, tramadol, and a muscle relaxer daily. She has been receiving injections which provide benefit but no recent injection since no provider. She is requesting to be switched back to cyclobenza shiva instead of methocarba mol, PM has been alternatin g her muscle relaxers to help prevent tolerance to drug. - medication refilled, muscle relaxer changed back to cyclobenza shiva Essential hypertension 43511133 I10 BP Today: 142/86 and 136/86 Taking Lisinopril 20 mg Discussed DASH diet Advised 30 minutes of exercise minimum daily Advised tobacco, alcohol, caffeine all increase BP Advised goal for BP is <140/90 Contact office if BP is > 140/90 consistent ly DIscussed consequenc es of HTN including kidney, eye, heart damage, stroke, and even RTC 6 months for BP check - Will increase Lisinopril 20 to Lisinopril 30 mg qd Female str ess incontinence [id number] N39.3 Hx of vaginal in 2014, hysterecto my 2016 Since hysterecto my, was having incontinen ce/leakage , was having to wear a pad daily Increased incontinen ce when unable to get to the bathroom in time, sneezing, coughing, and with increased valsalva pressure Pt. notes the oxybutynin is helping her urinary frequency and urinary incontinen ce, she is happy with the medication currently. She wants to wait on seeing urology for now. - C/w kegel exercises and pelvic floor exercises - C/w oxybutynin 5 mg BID x 30 day Herpes simplex [id number] B00.9 Hx of HSV infection, taking acyclovir 800 mg qd for prevention - will send refills [id number] BRITTON HERNANDEZ NP [facility] [address] [place] [address] 02/17/2021 12:08:16 02/17/2021 13:58:00 Gastroesophageal reflux disease [id number] K21.9 Taking pantoprazo le 40 mg daily and famotidine 20 mg BID per her PCP Epigastric pain [id number] R10.13 Occurred on 3 e days, at night only, last time was in December1Pvicenta t is concerned about H. Pylori recurrence Stop MeloxicamT o contact prescriber at the pain center for alternativ es Hepatitis C screening [id number] Z11.59 [id number] RUDI COELHO (Adult Med) [address] [place] [address] 04/29/2021 09:16:31 04/30/2021 18:10:58 Type 2 diabetes mellitus 34603781 E11.9 Last A1C: 7.0 today (), 6.4 today, 6.6 (02/18/2020) Fasting BG range: not checking regularly Current Therapy: metformin 500 mg QD Statin: atorvastat in 20 mg qd MICHELLE/ARB: lisinopril 20 mg qd Foot Exam: normal (10/23/2020) Microalbum in: due with next set of labs Eye exam: 11/2019 - normal Pneumovax 23: declined today Pt was counseled on low carbohydra te diet to better manage diabetes. We went discussed pt's diet at length and I made specific dietary recommenda tions. I also encouraged regular exercise of 30-60 minutes most days of the week. Pt was encouraged to get yearly diabetic eye exams as well. - C/w lifestyle changes at home including cutting out sugary foods/carb ohydrates/ sugary drinks, increase exercise, and weight loss. - C/w Metformin 500 mg qd - Advised the pt that right now she does not need to check her fasting BS daily due to her controlled Hem A1C but to check it a few times a week with fasting goal of 100 - Advised the pt that we will now need to get eye and foot exam yearly - C/w atorvastat in 20 mg qD - Follow up in 6 months Essential hypertension 23078637 I10 BP Today: 110/78 Taking Lisinopril 30 mg Discussed DASH diet Advised 30 minutes of exercise minimum daily Advised tobacco, alcohol, caffeine all increase BP Advised goal for BP is <140/90 Contact office if BP is > 140/90 consistent ly DIscussed consequenc es of HTN including kidney, eye, heart damage, stroke, and even RTC 6 months for BP check - c/w Lisinopril 30 mg qd Gastroesop hageal reflux disease [id number] K21.9 History of GERD, currently taking pantoprazo le 40 mg qd and famotidine , well controlled Today, complainin g of 2 episodes of epigastric pressure at night when laying down which lasted 2-3 hours long. Has been following with GI, H pylori was treated pepe hess, EGD was ordered but never completed - c/w medication s as prescribed - if the episodes of pressure start to increase in frequency, reach out to GI and discuss getting EGD completed- continue with supportive care at home including healthy diet changes, limiting aggravatin g foods, stop eating 2 hours before laying down at night, and elevated head of bed Hyperlipidemia 81458342 E78.5 02/18/2020: HDL slightly low and LDL slightly elevated (prior to starting statin medication )- due for labs again today- c/w atorvastat in 20 mg qd Low back pain [id number] M54.50 Was following with PM for her low back pain, recently had to switch PM providers due to provider at old PM clinic leaving the practice.S he has been working with [facility] who needed her to complete 20 weeks of PT prior to her first appointmen t, she completed the 20 weeks but has not been able to reach PM since then.She is taking meloxicam, tramadol, and a muscle relaxer daily, does not feel like this is helping anymore. She used to receive injections which provided benefit but no recent injection since no provider.- medication s refilled- keep trying PM, I also called and left a voicemail, if no response in the next 2-4 weeks, let me know and we can switch to another PM clinic Female str ess incontinence [id number] N39.3 Hx of vaginal in 2014, hysterecto my 2016 Since hysterecto my, was having incontinen ce/leakage , was having to wear a pad daily Increased incontinen ce when unable to get to the bathroom in time, sneezing, coughing, and with increased valsalva pressure Pt. notes the oxybutynin is helping her urinary frequency and urinary incontinen ce, she is happy with the medication currently. She wants to wait on seeing urology for now. - C/w kegel exercises and pelvic floor exercises - C/w oxybutynin 5 mg BID x 30 day Herpes simplex [id number] B00.9 Hx of HSV infection, taking acyclovir 800 mg qd for prevention - will send refills Depressive disorder [id number] F32.A Patient unsure why she is taking citalopram , states she has been on this medication x 4 yearsDenie s symptoms of depression , states she has felt like she has always been in good moodShe is interested in coming off this medication - due to the length of time she has been taking the medication , will need to slowly titrate her off so will decrease from citalopram 40 mg to 20 mg today. Plan to take this medication x 3-6 months and then will decrease again to 10 mg tablets.- if she starts to develop symptoms of depression , please call office Adult heal th examination [id number] Z00.00 Will order lab work today, patient is not fasting, will come back at later time to get these drawn- Ordered CMP, CBC, lipid panel, and Hem A1c to evaluate- Will contact the pt with results [id number] RUDI COELHO (Adult Med) [address] [place] [address] 10/13/2021 11:42:19 10/14/2021 13:26:56 Type 2 diabetes mellitus 90964918 E11.9 Last A1C: 6.4 today (10/13/2021 ), 7.0 (), 6.4 today, 6.6 (02/18/2020) Fasting BG range: not checking regularly Current Therapy: metformin 500 mg QD Statin: atorvastat in 40 mg qd MICHELLE/ARB: lisinopril 20 mg qd Foot Exam: normal today (10/13/21) Microalbum in: Normal 05/04/21 Eye exam: 11/2019 - normal Pneumovax 23: declined today Pt was counseled on low carbohydra te diet to better manage diabetes. We went discussed pt's diet at length and I made specific dietary recommenda tions. I also encouraged regular exercise of 30-60 minutes most days of the week. Pt was encouraged to get yearly diabetic eye exams as well. - C/w lifestyle changes at home including cutting out sugary foods/carb ohydrates/ sugary drinks, increase exercise, and weight loss. - C/w Metformin 500 mg qd - Advised the pt that right now she does not need to check her fasting BS daily due to her controlled Hem A1C but to check it a few times a week with fasting goal of 100 - Advised the pt that we will now need to get eye and foot exam yearly - C/w atorvastat in 40 mg qD - Follow up in 6 months Essential hypertension [id number] I10 BP Today: 114/80 Taking Lisinopril 30 mg Discussed DASH diet Advised 30 minutes of exercise minimum daily Advised tobacco, alcohol, caffeine all increase BP Advised goal for BP is <140/90 Contact office if BP is > 140/90 consistent ly DIscussed consequenc es of HTN including kidney, eye, heart damage, stroke, and even RTC 6 months for BP check - c/w Lisinopril 30 mg qd Gastroesop hageal reflux disease [id number] K21.9 History of GERD, currently taking pantoprazo le 40 mg qd and famotidine , well controlled Today, complainin g of 2 episodes of epigastric pressure at night when laying down which lasted 2-3 hours long. Has been following with GI, H pylori was treated appropriat deshawn, EGD was ordered but never completed - c/w medication s as prescribed - if the episodes of pressure start to increase in frequency, reach out to GI and discuss getting EGD completed- continue with supportive care at home including healthy diet changes, limiting aggravatin g foods, stop eating 2 hours before laying down at night, and elevated head of bed Hyperlipidemia 31679406 E78.5 02/18/2020: HDL slightly low and LDL slightly elevated (prior to starting statin medication )05/04/21: HDL low and LDL still high, atorvastat in was then increased to 40 mg - c/w atorvastat in 40 mg qd Low back pain [id number] M54.50 She is taking meloxicam, tramadol, and a muscle relaxer daily, does not feel like this is helping anymore.Chester martinez was able to get back into PM, injections completed 07/07 and 08/08 which have definitely helped to eliminate some of her pain. She notes with the injections and her pain medication , the back pain is now tolerable. - medication s refilled, have patient sign pain contract at next visit since this is no longer short-term fill- c/w PM Female str ess incontinence [id number] N39.3 Hx of vaginal in 2014, hysterecto my 2016 Since hysterecto my, was having incontinen ce/leakage , was having to wear a pad daily Increased incontinen ce when unable to get to the bathroom in time, sneezing, coughing, and with increased valsalva pressure Pt. notes the oxybutynin is helping her urinary frequency and urinary incontinen ce, she is happy with the medication currently. She wants to wait on seeing urology for now. - C/w kegel exercises and pelvic floor exercises - C/w oxybutynin 5 mg BID x 30 day Herpes simplex 40681312 B00.9 Hx of HSV infection, taking acyclovir 800 mg qd for prevention - will send refills Depressive disorder [id number] F32.A In the process of coming off her citalopram medication , at last visit it was decreased from 40 mg to 20 mg and she did well with the decreased dose. She is ready to decrease the dose again and then come off medication . States mood is stable.- due to the length of time she has been taking the medication , will need to slowly titrate her off. Decreased from 20 mg to 10 mg x 6 months and then will come off medication completely - if she starts to develop symptoms of depression , please call office Vitamin D deficiency [id number] E55.9 Still slightly low with last set of labs- c/w weekly supplement s Morbid obesity 741491110 E66.01 Advised decreased portion sizes, good food choices, limited eating out or fast food and eliminate soda and juice from diet. Advised physical activity daily and offered encouragem ent to continue with positive changes made so far.- nutritioni st referral sent today Family formerly named [facility] nning surveillance [id number] Z30.09 Was getting this medication from Dr. Smith, needs refilled [id number] RUDI COELHO (Adult Med) [address] [place] [address] 04/01/2022 11:10:47 04/02/2022 11:00:41 Type 2 diabetes mellitus 31641249 E11.9 Last A1C: 7.7 today (04/01/22), 6.4 (10/13/2021 ), 7.0 (), 6.4 today, 6.6 (02/18/2020) Fasting BG range: not checking regularly Current Therapy: metformin 500 mg QD Statin: atorvastat in 40 mg qd MICHELLE/ARB: lisinopril 20 mg qd Foot Exam: normal (10/13/21) Microalbum in: Normal 05/04/21 Eye exam: 11/2019 - normal Pneumovax 23: declined today Pt was counseled on low carbohydra te diet to better manage diabetes. We went discussed pt's diet at length and I made specific dietary recommenda tions. I also encouraged regular exercise of 30-60 minutes most days of the week. Pt was encouraged to get yearly diabetic eye exams as well. - C/w lifestyle changes at home including cutting out sugary foods/carb ohydrates/ sugary drinks, increase exercise, and weight loss. - increase Metformin from 500 mg qd to 500 mg BID - Advised the pt that right now she does not need to check her fasting BS daily due to her controlled Hem A1C but to check it a few times a week with fasting goal of 100 - Advised the pt that we will now need to get eye and foot exam yearly - C/w atorvastat in 40 mg qD - Follow up in 6 months Essential hypertension 03171552 I10 BP Today: 108/70 Taking Lisinopril 30 mg Discussed DASH diet Advised 30 minutes of exercise minimum daily Advised tobacco, alcohol, caffeine all increase BP Advised goal for BP is <140/90 Contact office if BP is > 140/90 consistent ly DIscussed consequenc es of HTN including kidney, eye, heart damage, stroke, and even RTC 6 months for BP check - c/w Lisinopril 30 mg qd Gastroesop hageal reflux disease [id number] K21.9 History of GERD, currently taking pantoprazo le 40 mg qd and famotidine , well controlled - c/w medication s as prescribed Hyperlipidemia 41866805 E78.5 02/18/2020: HDL slightly low and LDL slightly elevated (prior to starting statin medication )05/04/21: HDL low and LDL still high, atorvastat in was then increased to 40 mg - c/w atorvastat in 40 mg qd Low back pain [id number] M54.50 Still following with PM, last injection was about 3 weeks ago. States her pain is tolerable with current oral medication s and injections . - medication s refilled, have patient sign pain contract at next visit since this is no longer short-term fill- c/w PM Female str ess incontinence [id number] N39.3 Hx of vaginal in 2014, hysterecto my 2016. Since hysterecto my, was having incontinen ce/leakage , was having to wear a pad daily Increased incontinen ce when unable to get to the bathroom in time, sneezing, coughing, and with increased valsalva pressure. Oxybutynin was helping her urinary frequency and urinary incontinen ceToday, complainin g of severe sweating over the last 2 weeks. States she will sweat through her entire shirt before leaving the house each morning. She had to get treated for a rash between her breasts last week due to the sweating and rubbing. Denies new medication s or medication changes. Admits to running out of her oxybutynin 1.5 - 2 weeks ago, urinary frequency has increased again. Unsure what type of hysterecto my she had back in 2016, takes Slynd daily to help with her hormones from her prior OBGYN. - C/w kegel exercises and pelvic floor exercises - Restart oxybutynin 10 mg daily, this may be the cause of her new worsening sweating as anhidrosis can be a SE from the medication - will get records from [facility] regarding her surgery, would like to know if hormones may be playing a part in her symptoms Herpes simplex [id number] B00.9 Hx of HSV infection, taking acyclovir 800 mg qd for prevention - will send refills Depressive disorder [id number] 4814 F32.A In the process of coming off her citalopram medication , she has been taking citalopram 10 mg and her mood has been decent with no concerns of worsening depression or anxiety. She feels like she is ready to come off this medication .- stop citalopram , watch from worsening anxiety and depression , call if symptoms get worse Vitamin D deficiency [phone] [id number] E55.9 Still slightly low with last set of labs- c/w weekly supplement s Morbid obesity [id number] E66.01 Advised decreased portion sizes, good food choices, limited eating out or fast food and eliminate soda and juice from diet. Advised physical activity daily and offered encouragem ent to continue with positive changes made so far.- nutritioni st referral sent today Family formerly named [facility] nning surveillance [id number] Z30.09 She is complainin g of severe sweating over the last 2 weeks. States she will sweat through her entire shirt before leaving the house each morning. She had to get treated for a rash between her breasts last week due to the sweating and rubbing. Denies new medication s or medication changes.Un sure what type of hysterecto my she had back in 2016, takes Slynd daily to help with her hormones from her prior OBGYN.- will get surgery notes from [facility] [id number] RUDI COELHO (Adult Med) [address] [place] [address] 07/01/2022 11:18:24 07/02/2022 10:16:05 Type 2 diabetes mellitus 27105548 E11.9 Last A1C: 6.9 today ( 2), 7.7 (04/01/22), 6.4 (10/13/2021 ), 7.0 ( 1), 6.4, 6.6 (02/18/2020) Fasting BG range: low 100s Current Therapy: metformin 500 mg QD (tried to go up to 500 mg BID but caused severe stomach upset) Statin: atorvastat in 40 mg qd MICHELLE/ARB: lisinopril 20 mg qd Foot Exam: normal (10/13/21) Microalbum in: Normal 05/04/21, ordered new one today Eye exam: 11/2019 - normal Pneumovax 23: declined today Pt was counseled on low carbohydra te diet to better manage diabetes. We went discussed pt's diet at length and I made specific dietary recommenda tions. I also encouraged regular exercise of 30-60 minutes most days of the week. Pt was encouraged to get yearly diabetic eye exams as well. - C/w lifestyle changes at home including cutting out sugary foods/carb ohydrates/ sugary drinks, increase exercise, and weight loss. -c/w Metformin 500 mg qd - Advised the pt that right now she does not need to check her fasting BS daily due to her controlled Hem A1C but to check it a few times a week with fasting goal of 100 - Advised the pt that we will now need to get eye and foot exam yearly - C/w atorvastat in 40 mg qD - Follow up in 6 months Hyperlipidemia [id number] E78.5 02/18/2020: HDL slightly low and LDL slightly elevated (prior to starting statin medication )05/04/21: HDL low and LDL still high, atorvastat in was then increased to 40 mg - c/w atorvastat in 40 mg qd Vitamin D deficiency [id number] 10879 E55.9 Still slightly low with last set of labs- c/w weekly supplement s Morbid obesity [id number] E66.01 Advised decreased portion sizes, good food choices, limited eating out or fast food and eliminate soda and juice from diet. Advised physical activity daily and offered encouragem ent to continue with positive changes made so far.- nutritioni st referral sent today Boby on of lumbar intervertebral disc [id number] M51.36 Feels like her muscle relaxer at bedtime is no longer working like it used to, she is finding herself tossing and turning in bed due to pain and being uncomforta ble which is making it hard for her to sleep.David lui seeing PM. Notes they used to switch her muscle relaxers every 6 months so wondering if we can try a new one today. States the methocarbo mol did not seem to help in the past.- PC signed today- c/w supportive care meds and tramadol as prescribed , does not need refill at this time- will switch muscle relaxer to tizanidine at night to see if this helps [id number] BREE MCKEON [facility] [address] [place] [address] 08/06/2022 11:16:07 08/13/2022 07:55:56 Abdominal pain [id number] R10.9 No tenderness on exam. Continue famotidine BID and pantoprazo le QD. Await H. pylori results. History of Helicobacter pylori infection [id number] Z86.19 Patient is concerned for recurrence . If H. pylori negative will proceed with EGD. Patient is in agreement with this plan. [id number] RUDI COELHO (Adult Med) [address] [place] [address] 09/30/2022 09:32:05 10/05/2022 10:13:44 Morbid obesity [id number] E66.01 BMI: 44.9, recently lost 10 pounds with her recent illness but also lifestyle changesAdv ised decreased portion sizes, good food choices, limited eating out or fast food and eliminate soda and juice from diet. Advised physical activity daily and offered encouragem ent to continue with positive changes made so far.- nutritioni st referral sent today Chronic gastritis 729604 9 K29.50 09/16/2022 EGD findings :chronic gastritis- gastritis care inst.-take famotidine 20mg-take pantoprazo le- limit certain foods, provided hand-out Type 2 charity betes mellitus 63364281 E11.9 Last A1C: 6.9 (09/30/22), 6.9 ( 2), 7.7 (04/01/22), 6.4 (10/13/2021 ), 7.0 (), 6.4, 6.6 (02/18/2020) Fasting BG range: low 100s Current Therapy: metformin 500 mg QD (tried to go up to 500 mg BID but caused severe stomach upset) Statin: atorvastat in 40 mg qd MICHELLE/ARB: lisinopril 20 mg qd Foot Exam: normal (10/13/21) Microalbum in: Normal 07/2022 Eye exam: 05/07 - normal Pneumovax 23: declined today Pt was counseled on low carbohydra te diet to better manage diabetes. We went discussed pt's diet at length and I made specific dietary recommenda tions. I also encouraged regular exercise of 30-60 minutes most days of the week. Pt was encouraged to get yearly diabetic eye exams as well. - C/w lifestyle changes at home including cutting out sugary foods/carb ohydrates/ sugary drinks, increase exercise, and weight loss. -c/w Metformin 500 mg qd - Advised the pt that right now she does not need to check her fasting BS daily due to her controlled Hem A1C but to check it a few times a week with fasting goal of 100 - Advised the pt that we will now need to get eye and foot exam yearly - C/w atorvastat in 40 mg qD - Follow up in 6 months Viral gastroenteritis 11 [id number] A08.4 Developed vomiting this past Tuesday then diarrhea on Tuesday which has since resolved. Today still complainin g of mild nausea and stomach cramping. Her daughter had similar symptoms that are gone now. Pt had also a headache on Tuesday, accompanie d with eye pain, light and noise sensitivit y, this has also since resolved.D enies recent travel or eating unusual food 6-12 hours before symptoms started - likely viral since daughter with similar symptoms, provided hand out on gastroente ritis, nausea, vomiting instructio ns-start Metamucil sugar-free (aspartame ) to help with recent irregular bowel movements since diarrhea ended-star t ondansetro n HCL 8mg as needed- provided pro-biotic samples today- c/w bland foods, increase slowly as tolerated Low back pain [id number] M54.50 Recently had another injection with PM for her back. We switched her muscle relaxer from cyclobenza shiva to tizanidine at last visit, pt notes the cyclobenza shiva worked better and would like to go back to that instead.Rudi in contract signed: 07/05/2022 UDS: 07/22/2022 - c/w PM-take meloxicam 15mg-renew cyclobenza shiva 10mg, also providing 1 month of tizanidine , we discussed alternatin g MR monthly to see if that works well for her Hyperlipidemia 77094134 E78.5 07/22/22: HDL : HDL slightly low and LDL slightly elevated (prior to starting statin medication ) - c/w atorvastat in 40 mg qd Vitamin D deficiency 347 74413 E55.9 Still slightly low with last set of labs- c/w weekly supplement s-renew ergocalcif rachel Herpes simplex 25499173 B00.9 Hx of HSV infection, taking acyclovir 800 mg qd for prevention - will send refills-re new acyclovir 800mg Essential hypertension 39614703 I10 BP Today: 102/70 Taking Lisinopril 30 mg Advised goal for BP is <140/90 Contact office if BP is > 140/90 consistent ly DIscussed consequenc es of HTN including kidney, eye, heart damage, stroke, and even RTC 6 months for BP check - c/w Lisinopril 30 mg qd Family luciana nning surveillance [id number] Z30.09 She is complainin g of severe sweating over the last 2 weeks. States she will sweat through her entire shirt before leaving the house each morning. She had to get treated for a rash between her breasts last week due to the sweating and rubbing. Denies new medication s or medication changes.Un sure what type of hysterecto my she had back in 2015, takes Slynd daily to help with her hormones from her prior OBGYN.- will get surgery notes from [facility]-renew SLYND 4mg Female str ess incontinence [id number] N39.3 Hx of vaginal in 2014, hysterecto my 2016. Since hysterecto my, was having incontinen ce/leakage , was having to wear a pad daily Increased incontinen ce when unable to get to the bathroom in time, sneezing, coughing, and with increased valsalva pressure. Oxybutynin was helping her urinary frequency and urinary incontinen ce - C/w kegel exercises and pelvic floor exercises - c/w oxybutynin 10 mg daily Depression screening 171 368440 Z13.31 PHQ 2/9 was negative in office today (0 out of 27) [id number] RUDI COELHO (Adult Med) [address] [place] [phone] 01/24/2023 12:24:48 01/26/2023 12:01:22 Morbid obesity [id number] E66.01 BMI: 44.9, recently lost 10 pounds with her recent illness but also lifestyle changesAdv ised decreased portion sizes, good food choices, limited eating out or fast food and eliminate soda and juice from diet. Advised physical activity daily and offered encouragem ent to continue with positive changes made so far. Low back pain [id number] M54.50 Pain contract signed: 07/05/2022 UDS: 07/22/2022Ne w onset radiation down R leg through to toes with limited ambulation x 2 weeks. Pain management had scheduled MRI for 02/11/23. - c/w PM, will get a hold of results of MRI after completed. Unable to be sooner due to scheduling .-c/w meloxicam 15mg- increase tramadol 100mg once daily to twice daily- increase cyclobenza shiva 10mg from once a day to 2-3x a day, warned may make drowsy. Do not drive while taking.- note completed today to be off of work, willing to complete FMLA if patient is eligible Lumbar radiculopathy 128 811435 M54.16 Acute on chronic low back pain with new numbness and tingling laterally and posteriorl y down R leg and to toes. Walking with walker currently and unable to drive/slee p/work due to current pain.ER and UC visit in the last 2 weeks, no improvemen t with hydrocodon e or high dose steroids -PT referral given to help with ROM, massage, heat/ice, etc.-Begin gabapentin for neuropathi c pain-await ing for MRI results before further management , ordered by PM- work note given, off work until 02/21/2023, allows time for PT and imaging to get completed [id number] RUDI COELHO [facility] ([facility]ult [facility]) [address] [place] [phone] 02/03/2023 10:54:33 02/04/2023 14:00:42 Lumbar radiculopathy [id number] M54.16 Acute on chronic low back pain with new numbness and tingling laterally and posteriorl y down R leg and to toes. Walking with walker currently and unable to drive/slee p/work due to current pain.Gabap entin and muscle relaxer helping slightly, can now get some sleep - start PT 02/08- can increase gabapentin to 200 mg TID for neuropathi c pain-await ing for MRI results before further management , ordered by PM- work note given, off work until 03/2023 Low back pain [id number] M54.50 Pain contract signed: 07/05/2022 UDS: 07/22/2022Ne w onset radiation down R leg through to toes with limited ambulation x 2 weeks. PT scheduled for 02/08/2023. Pain management had scheduled MRI for 02/11/23. - c/w PM, will get a hold of results of MRI after completed. Unable to be sooner due to scheduling .-c/w meloxicam 15mg- c/w other pain medication s at increased dose for short period of time- note completed today to be off of work, willing to complete FMLA if patient is eligible Morbid obesity 261621905 E66.01 BMI: 44.9, recently lost 10 pounds with her recent illness but also lifestyle changesAdv ised decreased portion sizes, good food choices, limited eating out or fast food and eliminate soda and juice from diet. Advised physical activity daily and offered encouragem ent to continue with positive changes made so far. Chronic gastritis 246588 9 K29.50 09/16/2022 EGD findings :chronic gastritis- gastritis care inst.-take famotidine 20mg-take pantoprazo le- limit certain foods, provided hand-out Type 2 charity betes mellitus 23770336 E11.9 Last A1C: 6.5 today, 6.9 (09/30/22), 6.9 ( 2), 7.7 (04/01/22), 6.4 (10/13/2021 ), 7.0 (), 6.4, 6.6 (02/18/2020) Fasting BG range: low 100s Current Therapy: metformin 500 mg QD (tried to go up to 500 mg BID but caused severe stomach upset) Statin: atorvastat in 40 mg qd MICHELLE/ARB: lisinopril 20 mg qd Foot Exam: normal today 02/03/2023 Microalbum in: Normal 07/2022 Eye exam: 2022: Last month at [facility] Pneumovax 23: declined today Pt was counseled on low carbohydra te diet to better manage diabetes. We went discussed pt's diet at length and I made specific dietary recommenda tions. I also encouraged regular exercise of 30-60 minutes most days of the week. Pt was encouraged to get yearly diabetic eye exams as well. - C/w lifestyle changes at home including cutting out sugary foods/carb ohydrates/ sugary drinks, increase exercise, and weight loss. -c/w Metformin 500 mg qd - Advised the pt that right now she does not need to check her fasting BS daily due to her controlled Hem A1C but to check it a few times a week with fasting goal of 100 - will request eye doctor - C/w atorvastat in 40 mg qD - Follow up in 6 months Hyperlipidemia 32309704 E78.5 07/22/22: HDL 388 : HDL slightly low and LDL slightly elevated (prior to starting statin medication ) - c/w atorvastat in 40 mg qd Vitamin D deficiency 347 64311 E55.9 Still slightly low with last set of labs- c/w weekly supplement s-renew ergocalcif rachel Herpes simplex 91593341 B00.9 Hx of HSV infection, taking acyclovir 800 mg qd for prevention - will send refills-re new acyclovir 800mg Essential hypertension 84866379 I10 BP Today: 126/84 Taking Lisinopril 30 mg Advised goal for BP is <140/90 Contact office if BP is > 140/90 consistent ly DIscussed consequenc es of HTN including kidney, eye, heart damage, stroke, and even RTC 6 months for BP check - c/w Lisinopril 30 mg qd Female str ess incontinence 46108626 N39.3 Hx of vaginal in 2014, hysterecto my 2016. Since hysterecto my, was having incontinen ce/leakage , was having to wear a pad daily Increased incontinen ce when unable to get to the bathroom in time, sneezing, coughing, and with increased valsalva pressure. Oxybutynin was helping her urinary frequency and urinary incontinen ce - C/w kegel exercises and pelvic floor exercises - c/w oxybutynin 10 mg daily Screening mammography 24 169496 Z12.31 Last mammogram was 11/19/2021. Denies breast symptoms. - Gave patient mammogram order during visit today, she is aware she is supposed to call and schedule herself. Intertrigo [id number] L30. 4 Needs refills today [id number] RUDI COELHO (Adult Med) [address] [place] [address] 03/29/2023 10:33:22 04/01/2023 14:51:32 Morbid obesity 628172664 E66.01 BMI: 44.4, recently lost 10 pounds with her recent illness but also lifestyle changesAdv ised decreased portion sizes, good food choices, limited eating out or fast food and eliminate soda and juice from diet. Advised physical activity daily and offered encouragem ent to continue with positive changes made so far. Lumbar radiculopathy 128 325936 M54.16 Acute on chronic low back pain with new numbness and tingling laterally and posteriorl y down R leg and to toes. Walking with cane currently and unable to drive/slee p/work due to current pain. Gabapentin dose increased to 200mg TID at last visit, started PT 02/08/23 and received new order last week. Still continuing on Flexeril. Pt states her radiculopa thy is much improved, pain in her back and hips bothers her more. Per PM note from 02/15/23, there is a plan for left L4, L5, and S1 radiofrequ ency ablation. She underwent an updated lumbar spine MRI ordered by PM.- continue PT 2x/week with home stretching and strengthen ing- continue gabapentin 200mg TID for neuropathi c pain- obtain recent lumbar spine MRI results- work note previously given up to 03/2023, extending work note for 1 month Low back pain 101715170 M54.50 Pain contract signed: 07/05/2022 UDS: 07/22/2022Ne w onset radiation down R leg through to toes with limited ambulation . PT currently 2x/week, started 02/08/23. Pain management completed MRI for 02/11/23.- c/w PM, will get a hold of results of MRI after completed- c/w meloxicam 15mg- c/w tramadol 50mg- note completed to extend off work period, willing to complete FMLA if patient is eligible Tachycardia 5448670 R00. 0 HR 113 today. Has been tachycardi c at multiple visits in the past. Last TSH 05/04/21 normal. possible exophthalm os on exam.-rech roxana TSH at next visit- consider EKG and possible tx at next visit [id number] RUDI COELHO (Adult Med) [address] [place] [phone] 04/28/2023 11:55:55 04/29/2023 16:20:49 Lumbar radiculopathy [id number] M54.16 Acute on chronic low back pain with new numbness and tingling laterally and posteriorl y down R leg and to toes. Working with PT, has 2 sessions left. Pt states her radiculopa thy is much improved, pain in her back and hips bothers her more. Per PM note from 02/15/23, there is a plan for left L4, L5, and S1 radiofrequ ency ablation but needs to finish PT first.- continue PT 2x/week with home stretching and strengthen ing- continue gabapentin 200mg TID for neuropathi c pain- work note previously given up to 05/09/2023 , patient is unsure if she will return to this type of work, plans to get back with me next week Low back pain 012452379 M54.50 Pain contract signed: 07/05/2022 UDS: 07/22/2022Ne w onset radiation down R leg through to toes with limited ambulation . PT currently 2x/week, started 02/08/23. Pain management completed MRI for 02/11/23.- c/w PM, will get a hold of results of MRI after completed- c/w meloxicam 15mg- c/w tramadol 50mg- note completed to extend off work period, willing to complete FMLA if patient is eligible Morbid obesity 334788687 E66.01 BMI: 43.8Advise d decreased portion sizes, good food choices, limited eating out or fast food and eliminate soda and juice from diet. Advised physical activity daily and offered encouragem ent to continue with positive changes made so far. [id number] RUDI COELHO (Adult Med) [address] [place] [phone] 05/31/2023 10:07:07 06/02/2023 14:20:49 Lumbar radiculopathy [id number] M54.16 Acute on chronic low back pain with new numbness and tingling laterally and posteriorl y down R leg and to toes. Finished PT since last visit. Pt states her radiculopa thy is much improved, pain in her back and hips bothers her more. Per PM note from 02/15/23, there is a plan for left L4, L5, and S1 radiofrequ ency ablation, scheduled for injection on 06/03/23.- keep upcoming apt for procedure with PM- continue gabapentin 200mg TID for neuropathi c pain- work note previously given up to 05/09/2023 , states she did not return back to work Low back pain 854816043 M54.50 Pain contract signed: 07/05/2022 UDS: 07/22/2022Ne w onset radiation down R leg through to toes with limited ambulation . PT completed 02/08/23 - finished 04/2023. Pain management completed MRI for 02/11/23. scheduled for injection on 06/03/23.- c/w PM- c/w meloxicam 15mg- c/w tramadol 50mg- patient has not yet returned to work, applying for jobs currently Morbid obesity 402966644 E66.01 BMI: 43.8Advise d decreased portion sizes, good food choices, limited eating out or fast food and eliminate soda and juice from diet. Advised physical activity daily and offered encouragem ent to continue with positive changes made so far. Toothache 49628640 K08.8 9 Patient reports tooth pain at the right lower molars.PE: inflammati on of gums directly surroundin g back 2 molars No abscess. Non-tender to malar region. Tenderness at gingiva surroundin g tooth.- Advised patient to continue to get into see dentist- Ordered mouthwash for gingivitis - Tylenol-Co deine ordered for PRN use, only use for severe pain- Antibiotic s sent x 10 days to cover for infection- eat soft foods and liquids Pain of ear 153294873 H9 2.09 Patient has been complainin g of right ear pain x 3 days. Reports chest congestion a couple weeks ago. Does not appear to be acutely infected. Suspected right ear pain is associated with tooth pain.PE: non-inject ed, clear TM, fluid behind ears.- recommend OTC Claritin for next two weeks Essential hypertension 83122799 I10 BP Today: 132/88 Taking Lisinopril 30 mg Advised goal for BP is <140/90 Contact office if BP is > 140/90 consistent ly DIscussed consequenc es of HTN including kidney, eye, heart damage, stroke, and even RTC 6 months for BP check - c/w Lisinopril 30 mg qd Chronic gastritis 799823 9 K29.50 09/16/2022 EGD findings :chronic gastritis- gastritis care inst.-take famotidine 20mg-take pantoprazo le- limit certain foods, provided hand-out Female str ess incontinence 50257243 N39.3 Hx of vaginal in 2014, hysterecto my 2015. Since hysterecto my, was having incontinen ce/leakage , was having to wear a pad daily Increased incontinen ce when unable to get to the bathroom in time, sneezing, coughing, and with increased valsalva pressure. Oxybutynin was helping her urinary frequency and urinary incontinen ce - C/w kegel exercises and pelvic floor exercises - c/w oxybutynin 10 mg daily Herpes simplex 69509961 B00.9 Hx of HSV infection, taking acyclovir 800 mg qd for prevention - will send refills-re new acyclovir 800mg Type 2 charity betes mellitus 09737085 E11.9 Last A1C: 6.5 (02/03/2023 ) , 6.9 (09/30/22), 6.9 (), 7.7 (04/01/22), 6.4 (10/13/2021 ), 7.0 (), 6.4, 6.6 (02/18/2020) Fasting BG range: low 100s Current Therapy: metformin 500 mg QD (tried to go up to 500 mg BID but caused severe stomach upset) Statin: atorvastat in 40 mg qd MICHELLE/ARB: lisinopril 20 mg qd Foot Exam: normal today 02/03/2023 Microalbum in: Normal 07/2022 Eye exam: 2022: Last month at [facility] vision Pneumovax 23: declined today Pt was counseled on low carbohydra te diet to better manage diabetes. We went discussed pt's diet at length and I made specific dietary recommenda tions. I also encouraged regular exercise of 30-60 minutes most days of the week. Pt was encouraged to get yearly diabetic eye exams as well. - C/w lifestyle changes at home including cutting out sugary foods/carb ohydrates/ sugary drinks, increase exercise, and weight loss. -c/w Metformin 500 mg qd - Advised the pt that right now she does not need to check her fasting BS daily due to her controlled Hem A1C but to check it a few times a week with fasting goal of 100 - will request eye doctor - C/w atorvastat in 40 mg qD - Follow up in 3 months, will need updated HgbA1c at that time Family [facility] surveillance [id number] Z30.09 Unsure what type of hysterecto my she had back in 2015, takes Slynd daily to help with her hormones from her prior OBGYN.- will get surgery notes from [facility]-renew SLYND 4mg Vitamin D deficiency 347 11122 E55.9 Still slightly low with last set of labs- c/w weekly supplement s-renew ergocalcif rachel Hyperlipidemia 60864018 E78.5 07/22/22: HDL : HDL slightly low and LDL slightly elevated (prior to starting statin medication ) - c/w atorvastat in 40 mg qd [id number] FATOU DOTSON (Adult Med) [address] [place] [address] 08/10/2023 09:47:46 08/11/2023 15:57:48 Type 2 diabetes mellitus 77675473 E11.9 Last A1C: 5.8 today (08/10/23), 6.5 (02/03/2023 ) , 6.9 (09/30/22), 6.9 ( 2), 7.7 (04/01/22), 6.4 (10/13/2021 ), 7.0 (), 6.4, 6.6 (02/18/2020) Fasting BG range: low 100sCurren t Therapy: metformin 500 mg QDStatin: atorvastat in 40 mg qdACE/ARB: lisinopril 20 mg qdFoot Exam: normal 02/03/2023M icroalbumi n: Normal 07/2022Eye exam: 2022 [facility]- patient to schedule yearly appointmen tPneumovax 23: declined today Pt was counseled on low carbohydra te diet to better manage diabetes. We went discussed pt's diet at length and I made specific dietary recommenda tions. I also encouraged regular exercise of 30-60 minutes most days of the week. Pt was encouraged to get yearly diabetic eye exams as well. - C/w lifestyle changes at home including cutting out sugary foods/carb ohydrates/ sugary drinks, increase exercise, and weight loss.-c/w Metformin 500 mg qd- Advised to check BS a few times a week with fasting goal of 100- C/w atorvastat in 40 mg qD- Follow up in 3 months for medication refills Depression screening 171 727069 Z13.31 PHQ9- negative (1 out of 27) [facility] screening 855309590 Z13.39 GAD7- Negative (0 out of 21) Body mass index 40+ - severely obese 043690586 Z68.41 BMI: 43.4 Toothache 51966802 K08.8 9 Patient is on wait list for dentist and should be getting in at the end of this month or beginning of next monthWill refill mouth wash Low back pain 585864060 M54.50 Excessive sweating 19733 005 R61 Patient on Slynd to help with hormonesSt ates still sweats a lotWill check thyroid since patient is also tachycardi c today Tachycardia 5203927 R00. 0 [id number] FATOU DOTSON (Adult Med) [address] [place] [phone] 11/09/2023 10:18:19 11/10/2023 11:16:17 Type 2 diabetes mellitus 62955874 E11.9 Last A1C: Today 6.2 (11/09/23), 5.8 (08/10/23), 6.5 (02/03/2023 ) , 6.9 (09/30/22), 6.9 (), 7.7 (04/01/22), 6.4 (10/13/2021 ), 7.0 (), 6.4, 6.6 (02/18/2020) Fasting BG range: low 100sCurren t Therapy: metformin 500 mg QDStatin: atorvastat in 40 mg qdACE/ARB: lisinopril 20 mg qdFoot Exam: normal 02/03/2023M icroalbumi n: Normal 07/2022Eye exam: 2022 [facility]- patient to schedule yearly appointmen tPneumovax 23: declined today Pt was counseled on low carbohydra te diet to better manage diabetes. We went discussed pt's diet at length and I made specific dietary recommenda tions. I also encouraged regular exercise of 30-60 minutes most days of the week. Pt was encouraged to get yearly diabetic eye exams as well. - C/w lifestyle changes at home including cutting out sugary foods/carb ohydrates/ sugary drinks, increase exercise, and weight loss.-c/w Metformin 500 mg qd- C/w atorvastat in 40 mg qD- Follow up in 3 months for medication refills Low back pain 841008604 M54.50 Depression screening 171 303756 Z13.31 PHQ9- negative (4 out of 27) [facility] 255381113 Z13.39 GAD7- Negative (1 out of 21) Body mass index 40+ - severely obese 953368759 Z68.41 BMI: 44.7 Advised decreased portion sizes, good food choices, limited eating out or fast food and eliminate soda and juice from diet. Advised physical activity daily and offered encouragem ent to continue with positive changes made so far. Hyperlipidemia 41148858 E78.5 Lumbar radiculopathy 128 218724 M54.16 Essential hypertension 46908315 I10 BP today 130/86 BP Goal: {{Less than 140/90* Le ss than 150/90}} BP Controlled : {{yes* no} } Healthy Weight: {{4'10= 91-118 lbs 4'11= 94-123 lbs 5'= 97-127 lbs 5'1= 100-131 lbs 5'2= 104-135 5' 3= 107-140 lbs 5'4= 110-144 lbs 5'5= 115-149 lbs 5'6= 118-154 lbs* 5'7= 121-158 lbs 5'8= 125-163 lbs 5'9= 128-168 lbs 5'10= 132-173 lbs 5'11= 136-178 lbs 6'= 140-183 lbs 6'1= 144-188 lbs 6'2= 148-193 lbs 6'3= 152-199 lbs 6'4= 156-204 lbs}} Discussed: Low sodium balanced diet, moderate exercise at least 3-4 times per week for an average of 40 minutes Uncontroll ed Hypertensi on potential risks, heart attack, , stroke, kidney failure etc. Hypertensi on is the silent Killer Take your Hypertensi on medication daily keep appointmen ts stop concentrat ed sugars--fo llow 1500 meal plan exercise 50-60 minutes daily on most days see eye doctor once a year see dentist every 6 months Next Visit: {{1 2 3* 4 5 6 7 8 9 10 11 12} }{{week(s) month(s)* }} C/W lisinopril 30mg daily Vitamin D deficiency 347 78164 E55.9 Female str ess incontinence 09991372 N39.3 Increased incontinen ce recentlyD/ C oxybutynin 10mg and increase to 15mg dailyIf problems worsens, will send to urology for further evaluation Chronic gastritis 622763 9 K29.50 Doing well with pantoprazo le-refills today Numbness of hand 8940072 04 R20.0 Get xr doneAdvise d pt to wear hand splint every nightIf problem persist, will send for further evaluation [id number] FATOU DOTSON (Adult Med) [address] [place] [phone] 02/06/2024 10:31:08 02/07/2024 16:07:30 Type 2 diabetes mellitus 94939481 E11.9 Last A1C: Today 6.5 (02/06/24), 6.2 (11/09/23), 5.8 (08/10/23), 6.5 (02/03/2023 ) , 6.9 (09/30/22), 6.9 (), 7.7 (04/01/22), 6.4 (10/13/2021 ), 7.0 (), 6.4, 6.6 (02/18/2020) Fasting BG range: low 100sCurren t Therapy: metformin 500 mg QDStatin: atorvastat in 40 mg qdACE/ARB: lisinopril 30 mg qdFoot Exam: normal 02/06/24Mic roalbumin: Normal 07/2022Eye exam: 2022 [facility]- patient to schedule yearly appointmen tPneummarlyn 23: declined today Pt was counseled on low carbohydra te diet to better manage diabetes. We went discussed pt's diet at length and I made specific dietary recommenda tions. I also encouraged regular exercise of 30-60 minutes most days of the week. Pt was encouraged to get yearly diabetic eye exams as well. - C/w lifestyle changes at home including cutting out sugary foods/carb ohydrates/ sugary drinks, increase exercise, and weight loss.-c/w Metformin 500 mg qd- C/w atorvastat in 40 mg qD- Follow up in 6 months for medication refills Essential hypertension 05856146 I10 BP today 132/82BP at home: 01/26/24 172/103, 01/31/24 166/96, 02/01/24 161/92 BP Goal: {{Less than 140/90* Le ss than 150/90}}BP Controlled : {{yes* no} }Healthy Weight: {{4'10= 91-118 lbs 4'11= 94-123 lbs 5'= 97-127 lbs 5'1= 100-131 lbs 5'2= 104-135 5' 3= 107-140 lbs 5'4= 110-144 lbs 5'5= 115-149 lbs 5'6= 118-154 lbs* 5'7= 121-158 lbs 5'8= 125-163 lbs 5'9= 128-168 lbs 5'10= 132-173 lbs 5'11= 136-178 lbs 6'= 140-183 lbs 6'1= 144-188 lbs 6'2= 148-193 lbs 6'3= 152-199 lbs 6'4= 156-204 lbs}}Discu ssed: Low sodium balanced diet, moderate exercise at least 3-4 times per week for an average of 40 minutes Uncontroll ed Hypertensi on potential risks, heart attack, , stroke, kidney failure etc. Hypertensi on is the silent Killer Take your Hypertensi on medication daily keep appointmen ts stop concentrat ed sugars--fo llow 1500 meal plan exercise 50-60 minutes daily on most days see eye doctor once a year see dentist every 6 months Next Visit: {{1 2 3* 4 5 6 7 8 9 10 11 12} }{{week(s) month(s)* }}C/W lisinopril 30mg dailyStart Atenolol 25mg daily Low back pain 920199969 M54.50 C/W tramadol 50mg QIDC/W cyclobenza shiva TIDPt has appointmen t for injections 02/15/24- keep appt Lumbar radiculopathy 128 320507 M54.16 C/W gabapentin 100mg 2 caps TID Hyperlipidemia 90305807 E78.5 C/W atorvastat in Female str ess incontinence 29613900 N39.3 C/w oxybutynin 15mg dailyIf problems worsens, will send to urology for further evaluation Chronic gastritis 541517 9 K29.50 Doing well with pantoprazo le-refills today Vitamin D deficiency 347 83195 E55.9 C/W Vitamin D2 Depression screening 171 565474 Z13.31 PHQ9- {{Negative * Positive Mild Mode rate Sever e}} (3 out of 27) Mental hea lt screening 797167703 Z13.39 GAD7- {{Negative * Positive Mild Mode rate Sever e}} (2 out of 21) Morbid obesity 461598190 E66.01 BMI 45.5 Advised decreased portion sizes, good food choices, limited eating out or fast food and eliminate soda and juice from diet. Advised physical activity daily and offered encouragem ent to continue with positive changes made so far. Tachycardia 3473709 R00. 0 HR 111 todayStart ed on beta david today Chest pain 75964915 R07. 9 Advised patient to go to ER if symptoms worsen or radiate to arm, if she has SOB or visual disturbanc es. [id number] FATOU DOTSON (Adult Med) [address] [place] [address] [phone] 05/23/2024 11:04:55 05/24/2024 11:25:47 Essential hypertension 04586036 I10 BP today 140/76BP at home: 01/26/24 172/103, 01/31/24 166/96, 02/01/24 161/92 BP Goal: {{Less than 140/90* Le ss than 150/90}}BP Controlled : {{yes* no} }Healthy Weight: {{4'10= 91-118 lbs 4'11= 94-123 lbs 5'= 97-127 lbs 5'1= 100-131 lbs 5'2= 104-135 5' 3= 107-140 lbs 5'4= 110-144 lbs 5'5= 115-149 lbs 5'6= 118-154 lbs* 5'7= 121-158 lbs 5'8= 125-163 lbs 5'9= 128-168 lbs 5'10= 132-173 lbs 5'11= 136-178 lbs 6'= 140-183 lbs 6'1= 144-188 lbs 6'2= 148-193 lbs 6'3= 152-199 lbs 6'4= 156-204 lbs}}Discu ssed: Low sodium balanced diet, moderate exercise at least 3-4 times per week for an average of 40 minutes Uncontroll ed Hypertensi on potential risks, heart attack, , stroke, kidney failure etc. Hypertensi on is the silent Killer Take your Hypertensi on medication daily keep appointmen ts stop concentrat ed sugars--fo llow 1500 meal plan exercise 50-60 minutes daily on most days see eye doctor once a year see dentist every 6 months Next Visit: {{1 2 3* 4 5 6 7 8 9 10 11 12} }{{week(s) month(s)* }}C/W lisinopril 30mg dailyC/W Atenolol 25mg daily Low back pain 124387861 M54.50 C/W tramadol 50mg QIDC/W cyclobenza shiva TIDPt has appointmen t for injections 02/15/24- keep apptMRI results from 01/27/21: Multilevel degenerati ve changes, small disc herniation L3-L4, L4-L5, L5-S1. Foraminal stenosis at L5-S1 Lumbar radiculopathy 128 864386 M54.16 C/W gabapentin 100mg 2 caps TID Hyperlipidemia 70479524 E78.5 C/W atorvastat in Female str ess incontinence 32516808 N39.3 C/w oxybutynin 15mg dailyIf problems worsens, will send to urology for further evaluation Chronic gastritis 105673 9 K29.50 Doing well with pantoprazo le-refills today Vitamin D deficiency 347 35827 E55.9 C/W Vitamin D2 Depression screening 171 876715 Z13.31 PHQ9- {{Negative * Positive Mild Mode rate Sever e}} (3 out of 27) Mental hea lth screening 521007194 Z13.39 GAD7- {{Negative * Positive Mild Mode rate Sever e}} (2 out of 21) Morbid obesity 391032735 E66.01 BMI 46.5 Advised decreased portion sizes, good food choices, limited eating out or fast food and eliminate soda and juice from diet. Advised physical activity daily and offered encouragem ent to continue with positive changes made so far. [id number] FATOU DOTSON (Adult Med) [address] [place] [address] [phone] 08/23/2024 11:12:36 08/23/2024 12:19:07 Type 2 diabetes mellitus 50031578 E11.9 Last A1C: Today 7.8 (08/23/24), 6.5 (02/06/24), 6.2 (11/09/23), 5.8 (08/10/23), 6.5 (02/03/2023 ) , 6.9 (09/30/22), 6.9 ( 2), 7.7 (04/01/22), 6.4 (10/13/2021 ), 7.0 ( 1), 6.4, 6.6 (02/18/2020) Current Therapy: metformin 500 mg QDStatin: atorvastat in 40 mg qdACE/ARB: lisinopril 30 mg qdFoot Exam: normal 02/06/24Mic roalbumin: Normal 07/2023Eye exam: 2022 [facility]- patient to schedule yearly appointmen tPneumovax 23: declined today Pt was counseled on low carbohydra te diet to better manage diabetes. We went discussed pt's diet at length and I made specific dietary recommenda tions. I also encouraged regular exercise of 30-60 minutes most days of the week. Pt was encouraged to get yearly diabetic eye exams as well. - C/w lifestyle changes at home including cutting out sugary foods/carb ohydrates/ sugary drinks, increase exercise, and weight loss.-Incr ease metformin to 500mg BID- C/w atorvastat in 40 mg qD- Follow up in 3 months Essential hypertension 72556283 I10 BP today 136/84BP at home: 01/26/24 172/103, 01/31/24 166/96, 02/01/24 161/92 BP Goal: {{Less than 140/90* Le ss than 150/90}}BP Controlled : {{yes* no} }Healthy Weight: {{4'10= 91-118 lbs 4'11= 94-123 lbs 5'= 97-127 lbs 5'1= 100-131 lbs 5'2= 104-135 5' 3= 107-140 lbs 5'4= 110-144 lbs 5'5= 115-149 lbs 5'6= 118-154 lbs* 5'7= 121-158 lbs 5'8= 125-163 lbs 5'9= 128-168 lbs 5'10= 132-173 lbs 5'11= 136-178 lbs 6'= 140-183 lbs 6'1= 144-188 lbs 6'2= 148-193 lbs 6'3= 152-199 lbs 6'4= 156-204 lbs}}Discu ssed: Low sodium balanced diet, moderate exercise at least 3-4 times per week for an average of 40 minutes Uncontroll ed Hypertensi on potential risks, heart attack, , stroke, kidney failure etc. Hypertensi on is the silent Killer Take your Hypertensi on medication daily keep appointmen ts stop concentrat ed sugars--fo llow 1500 meal plan exercise 50-60 minutes daily on most days see eye doctor once a year see dentist every 6 months Next Visit: {{1 2 3* 4 5 6 7 8 9 10 11 12} }{{week(s) month(s)* }}C/W lisinopril 30mg dailyc/w Atenolol 25mg daily Low back pain 170261951 M54.50 C/W tramadol 50mg QIDC/W cyclobenza shiva TIDPt has appointmen t for injections 02/15/24- keep appt Lumbar radiculopathy 128 639100 M54.16 C/W gabapentin 100mg 2 caps TID Hyperlipidemia 92270563 E78.5 C/W atorvastat in Female str ess incontinence 79696209 N39.3 C/w oxybutynin 15mg dailyIf problems worsens, will send to urology for further evaluation Chronic gastritis 306089 9 K29.50 Doing well with pantoprazo le-refills today Vitamin D deficiency 347 27139 E55.9 C/W Vitamin D2 Depression screening 171 897769 Z13.31 PHQ9- {{Negative * Positive Mild Mode rate Sever e}} (0 out of 27) Mental hea lth screening 437689794 Z13.39 GAD7- {{Negative * Positive Mild Mode rate Sever e}} (0 out of 21) Morbid obesity 405693476 E66.01 BMI 46.2 Advised decreased portion sizes, good food choices, limited eating out or fast food and eliminate soda and juice from diet. Advised physical activity daily and offered encouragem ent to continue with positive changes made so far. Candidal intertrigo 2661 70749 B37.2 Start nystatin powder twice a day Health Concerns Section Related Observation LastModified by Organization Detai ls LastModified Time None Recorded Concern Status LastModified by Organization Details LastModified Time None Recorded Advance Directives Directive N: Payers Encounter Date Sequence Insurance Name Policy Number Policy Coffman Covered Member ID Coffman Member ID Guarantor Name 08/10/2023 1 FORMERLY [facility] (MEDICAID HMO) [id number] 0003 Olga Lidia Caruso [id number] Bertha Caruso 11/09/2023 1 FORMERLY [facility] (MEDICAID HMO) [id number] 0003 Olga Lidia Caruso [id number] Bertha Caruso 02/06/2024 1 FORMERLY [facility] (MEDICAID HMO) [id number] 0003 Olga Lidia Caruso [id number] Bertha Caruso 05/23/2024 1 FORMERLY [facility] (MEDICAID HMO) [id number] 0003 Olga Lidia Caruso [id number] Berthamichele Caruso 08/23/2024 1 FORMERLY [facility] (MEDICAID HMO) [id number] 0003 Olga Lidia Caruso [id number] Bertha Caruso Notes Date Note Type Note Provider Name and Address Organization Details Recorded Time 08/10/2023 text/html 43-year-old Afri can Tristanian female here to establish care. Patient needs refills on her tramadol and cyclobenzaprine for back pain. States still having the back pain and has not had pain medication in a couple of months. She is having pain that radiates from lower back to mathew toes. Denies any recent injuryPatient is also needing refills on mouth wash. States she has been on the wait list for the dentist since January of 2023, was told she might be able to get in at the end of this month or the beginning of next month.Pt does not need refills on chronic medications, has refills until October.Denies any SOB, CP, BOO at this time ALEJANDRA RAZA PA-C Attn: Accounting,[address] [place], [address], [facility] 08/10/2023 10:34:53 11/09/2023 text/html 43-year-old Afri can [place]istanian female here for f/u chronic conditions. Pt has been taking medication daily. Pt is not checking blood sugars at home.Pt states went to eye doctor and was told she needed further evaluation, has appt next month.Pt c/o L hand 4th and 5th finger numbness and tingling when she wakes up. Denies injury.Denies any SOB, CP, BOO at this time ALEJANDRA RAZA PA-C Attn: Accounting,[address] [facility], [place], [address], [facility] 11/09/2023 11:05:51 02/06/2024 text/html Diabetes F/URepo rted bypatient.Labs:last A1C result: 6.5 Context:normal range of home blood sugars (in the low 100s); seeing eye doctor regularly; checking feet regularly Associated Symptoms:no weight gain; no weight loss; no dizziness; no sweats; no confusion; no increased thirst; no increased appetite; no increased urination; no blurred vision; no numbness of feet; no calluses on feet;headachesHyperten gurvinder F/UReported bypatient.Associated Symptoms:no dizziness; no lightheadedness; no shortness of breath; no palpitations; no edema; no calf pain with exertion;chest pain(intermittent, non-reproducible) Lifestyle:not exercising regularly Medications:taking medications as directed; no side effects from medication 43 y/o AA F here for f/u DM and HTN.Pt states BP has been elevated a couple times in the last week, has had BOO. She states she has been in a lot back pain and has appointment for injections at the end of this month. Denies SOB, N/V/D. ALEJANDRA RAZA PA-C Attn: Accounting,[address] [facility], [place], [address], [facility] 02/06/2024 11:36:09 05/23/2024 text/html 43 y.o. female w ho presents for f/u on low back pain. Pt has chronic low back pain that is being followed by pain management. She states that her current treatment is not helping with her symptoms and is requesting an alteration to her medications. She last saw pain management in February for injections, and did not receive desired relief. They recommended that she see a neurosurgeon for further evaluation and treatment, but she is unable to get into to see them until the new year. Notes associated numbness, tingling, shooting pain, and pain radiating down her right leg. Denies BOO, CP, SOB, abdominal pain, N/V/D or urinary changes. ALEJANDRA RAZA PA-C Attn: Accounting,[address] [facility], [place], [address], [facility] 05/23/2024 12:16:40 08/23/2024 text/html Diabetes F/URepo rted bypatient.Labs:last A1C result: 7.8 Context:seeing eye doctor regularly; checking feet regularly Associated Symptoms:no weight gain; no weight loss; no dizziness; no sweats; no headaches; no confusion; no increased thirst; no increased appetite; no increased urination; no blurred vision; no numbness of feet; no calluses on feetHypertension F/UReported bypatient.Associated Symptoms:no dizziness; no lightheadedness; no chest pain; no shortness of breath; no palpitations; no edema; no calf pain with exertion Lifestyle:regular exercise; limiting/avoiding salt Medications:taking medications as directed; no side effects from medication 44-year-old female here for follow-up chronic conditions. Patient states she has been in some pain and she is not going to pain management anymore. Patient admits she has not been doing well with diet. Patient is complaining of a rash to her abdomen under her breasts. Has been using nystatin powder that was given to her a couple of years ago by her previous provider but it has not been helping. ALEJANDRA RAZA PA-C Attn: Accounting, [place], [address], [facility] 08/23/2024 13:07:54 OBGyn Episode Ob Episode Information Episode Created Date Number of Fetuses Patient Bloodtype Patient rh Status Prepregnancy Weight lbs Domestic Partner Domestic Partner Phone Father Name Director Of Public Safety Status 12/05/19 15 1 B Positive 249 CLOSED Fetus Data First Name Last Name Admitted to NICU Weight (g) Sex Living Outcome Pediatric Complications Fetus ID Race Codes Race Delivery Type Vikash Loving na, D Hurst true 3118.44 5 F true Prematur e 89897 8-6 Afric an Ameri can Vaginal Problems Problem Notes Problem Name Start Date End Date Resolution Snomed Code Not e Enlarged uterus [id number] Amenorrhea 56786075 Bacterial vaginosis 124594117 Genital herpes simplex 6617425 6 Vitamin D deficiency 94108404 Uterine leiomyoma 42511248 Herpes simplex 24811823 Abdominal pain 07897263 Gastroesophageal reflux disease 065729858 state 24738223 Constipation 70445972 Jayesh Calculation Initial Jayesh Date Initial Exam Date Initial Exam Provider Initial Ultrasound Date Last Menstrual Period Date Ultra Sound Weeks Gestation 07/02/2015 12/04/2014 mandi 12/06/2014 09/25/2014 10 Eighteen To Twenty Week Jayesh Update Ultra Sound Date Fundal Height At Umbil Quickening Date Ultra Sound Latest Weeks Gestation Final Jayesh Confirmed By Final Jayesh Confirmed Date Final Jayesh Date Ultra Sound Latest Days Gestation 0 07/02/20 15 0 Pre- Flowsheet Flowsheet Date 12/04/2014 Smith Score Blood Edema Fundus Height Fundus Units Glucose Ketones Leukocytes Nitrite Labor Signs Protein Cervic Dilation Cervic Effacement Cervic Station neg none 20 cm none negative neg 0cm 0% - 3 Type Weight in lbs Pre/Post Dialysis Refused 249.431564444355 BP Diastolic BP Location Tested BP Systolic BP Type 82 136 sitting Fetus Heart Rate Present Fetus Movement Comments NOB constipated/?fibroid Flowsheet Date 12/20/2014 Smith Score Blood Edema Fundus Height Fundus Units Glucose Ketones Leukocytes Nitrite Labor Signs Protein Cervic Dilation Cervic Effacement Cervic Station Type Weight in lbs Pre/Post Dialysis Refused BP Diastolic BP Location Tested BP Systolic BP Type Fetus Heart Rate Present Fetus Movement Comments Flowsheet Date 01/01/2015 Smith Score Blood Edema Fundus Height Fundus Units Glucose Ketones Leukocytes Nitrite Labor Signs Protein Cervic Dilation Cervic Effacement Cervic Station neg none none negative trace Type Weight in lbs Pre/Post Dialysis Refused 249.247804900289 BP Diastolic BP Location Tested BP Systolic BP Type 66 128 sitting Fetus Heart Rate Present Fetus Movement Comments Wants vaginal delivery if po ssible. Desires tubal ligation for contraception after delivery. Flowsheet Date 01/29/2015 Smith Score Blood Edema Fundus Height Fundus Units Glucose Ketones Leukocytes Nitrite Labor Signs Protein Cervic Dilation Cervic Effacement Cervic Station neg none 28 cm none negative Pressure neg Type Weight in lbs Pre/Post Dialysis Refused 251.46221303459 BP Diastolic BP Location Tested BP Systolic BP Type 74 124 sitting Fetus Heart Rate Present A 164 Present Fetus Movement A No Comments fiboid, survey monthly, 16 w k labs Flowsheet Date 03/05/2015 Smith Score Blood Edema Fundus Height Fundus Units Glucose Ketones Leukocytes Nitrite Labor Signs Protein Cervic Dilation Cervic Effacement Cervic Station neg none 28 cm none negative none neg Type Weight in lbs Pre/Post Dialysis Refused 253.679683917780 BP Diastolic BP Location Tested BP Systolic BP Type 74 118 sitting Fetus Heart Rate Present A 146 Present Fetus Movement A Yes Comments 28 week labs next, OB f/u, u s Fibroids Flowsheet Date 03/10/2015 Smith Score Blood Edema Fundus Height Fundus Units Glucose Ketones Leukocytes Nitrite Labor Signs Protein Cervic Dilation Cervic Effacement Cervic Station neg none 30 cm none negative Other (see comments ) neg Type Weight in lbs Pre/Post Dialysis Refused 249.138130826376 BP Diastolic BP Location Tested BP Systolic BP Type 72 136 sitting Fetus Heart Rate Present A 145 Present Fetus Movement A Yes Comments FIBROID PAIN refer and JOSE DANIEL t o [facility] Flowsheet Date 04/02/2015 Smith Score Blood Edema Fundus Height Fundus Units Glucose Ketones Leukocytes Nitrite Labor Signs Protein Cervic Dilation Cervic Effacement Cervic Station neg trace 30 cm none negative none neg Type Weight in lbs Pre/Post Dialysis Refused 251.18899156579 BP Diastolic BP Location Tested BP Systolic BP Type 70 120 sitting Fetus Heart Rate Present A 163 Present Fetus Movement A Yes Comments 1 hr glucose and cbc done at [facility], normal per ptUS per [facility] Next apt 04/16/15Pain management per [facility] Flowsheet Date 04/30/2015 Smith Score Blood Edema Fundus Height Fundus Units Glucose Ketones Leukocytes Nitrite Labor Signs Protein Cervic Dilation Cervic Effacement Cervic Station neg none 33 cm none negative Pressure neg Type Weight in lbs Pre/Post Dialysis Refused 250.422797726870 BP Diastolic BP Location Tested BP Systolic BP Type 74 116 sitting Fetus Heart Rate Present A 150 Present Fetus Movement A Yes Comments Flowsheet Date 05/14/2015 Smith Score Blood Edema Fundus Height Fundus Units Glucose Ketones Leukocytes Nitrite Labor Signs Protein Cervic Dilation Cervic Effacement Cervic Station neg none 34 cm none negative Cramping trace Type Weight in lbs Pre/Post Dialysis Refused 252.327590841821 BP Diastolic BP Location Tested BP Systolic BP Type 60 110 sitting Fetus Heart Rate Present A 152 Present Fetus Movement A Yes Comments Flowsheet Date 05/28/2015 Smith Score Blood Edema Fundus Height Fundus Units Glucose Ketones Leukocytes Nitrite Labor Signs Protein Cervic Dilation Cervic Effacement Cervic Station Type Weight in lbs Pre/Post Dialysis Refused BP Diastolic BP Location Tested BP Systolic BP Type Fetus Heart Rate Present Fetus Movement Comments Menstrual History Last Menstrual Date Menses Monthly On Bcp Conception Prior Menses Frequency Hcg Plus Date Menarche Onset Age 0309/25/2014 true false 28 201 5 12 Genetic Screening And Infection History Question Response Note Patient's Age Will Be 35 Yea rs Or Older At Estimated Date of Delivery false Thalassemia (Kyrgyz, Serbian, Mediterranean, Or Background): MCV < 80 false Neural Tube Defect (Meningom yelocele, Spina Bifida, Or Anencephaly) false Congenital Heart Defect false Down Syndrome false Nathaniel-Sachs (eg, Adventism, Cajun, [place]) f alse Karla Disease false Sickle Cell Disease Or Trait () false Hemophilia Or Other Blood Disorders false Muscular Dystrophy false Cystic Fibrosis false [place]'s Chorea false Mental Retardation/Autism false If Yes, Was Person Tested For Fragile X? false Other Inherited Genetic Or Chromosomal Disorder false Maternal Metabolic Disorder (eg, Type 1 Diabetes , PKU) false Patient Or Baby's Father Had A Child With Defects Not Listed Above false Recurrent Loss, Or A Stillbirth false Medications (including Suppl ements, Vitamins, Herbs, OTC Drugs), Illicit/Recreational Drugs, Alcohol true v itamin If Yes, Agent(s) And Strength/Dosage false Any Other Genetic History false Live With Someone With TB Or Exposed To TB false Patient Or Partner Has History Of Genital Herpes false Rash Or Viral Illness Since Last Menstrual Perio d false History Of STD, Gonorrhea, Chlamydia, HPV, Syphi lis true HSV 2 Other Infection History false Plans and Education First Trimester Discussed Date Discussion Item Discussion Note Discuss ed By 12/20/2014 Anticipated course o f care [email or web address] 12/20/2014 Alcohol [email or web address] 12/20/2014 Intimate partner violence Denies sandie [email or web address] 12/20/2014 Environmental/work hazards j [email or web address] 12/20/2014 Screening for aneuploidy aurea [email or web address] 12/20/2014 Nutrition counseling ; special diet; dietary precautions (mercury, listeriosis) [email or web address] 12/20/2014 Childbirth classes/h ospital facilities Interested in epidural, [facility] and [facility] class information given [email or web address] 12/20/2014 HIV and other routin e tests [email or web address] 12/20/2014 Risk factors identif ied by history [email or web address] 12/20/2014 Weight gain counseling juliet et12/20/2014 Exercise [email or web address] 12/20/2014 Teratogens [id number] 12/20/2014 Use of any medicatio ns (including supplements, vitamins, herbs, or OTC drugs) [id number] 12/20/2014 Bottle feeding [id number] 12/20/2014 Sexual activity [id number] 12/20/2014 Tobacco/smoking cess ation counseling (ask, advise, assess, assist, and arrange) 12/20/2014 Illicit/recreational drugs Denies j 12/20/2014 Dental care 12/20/2014 Travel Car only 12/20/2014 Seat belt use 12/20/2014 Indications for ultrasonography 12/20/2014 Avoidance of saunas or hot tubs 12/20/2014 Toxoplasmosis precau tions (cats/raw meat) Second Trimester Discussed Date Discussion Item Discussion Note Discuss ed By Third Trimester Discussed Date Discussion Item Discussion Note Discuss ed By Delivery Information Delivery Date Delivery Type Labor Anesthesia Weeks Gestation Incision Type Labor Labor Length Hrs Delivered By Post Complications Tubal Sterilization Discharge Date Comments 5 Induce d [facility]-Ep id[facility] 34.3 true Other false 05/26/2015 , Pediatric anurag Maynard Discharge Information Feeding Method Contraceptive Method Maternal HG B and HCT Levels Bottle Ob Episode Information Episode Created Date Number of Fetuses Patient Bloodtype Patient rh Status Prepregnancy Weight lbs Domestic Partner Domestic Partner Phone Father Name Director Of Public Safety Status 05/28/20 15 1 DELETED Jayesh Calculation Initial Jayesh Date Initial Exam Date Initial Exam Provider Initial Ultrasound Date Last Menstrual Period Date Ultra Sound Weeks Gestation 0 Eighteen To Twenty Week Jayesh Update Ultra Sound Date Fundal Height At Umbil Quickening Date Ultra Sound Latest Weeks Gestation Final Jayesh Confirmed By Final Jayesh Confirmed Date Final Jayesh Date Ultra Sound Latest Days Gestation 0 0 Menstrual History Last Menstrual Date Menses Monthly On Bcp Conception Prior Menses Frequency Hcg Plus Date Menarche Onset Age Delivery Information Delivery Date Delivery Type Labor Anesthesia Weeks Gestation Incision Type Labor Labor Length Hrs Delivered By Post Complications Tubal Sterilization Discharge Date Comments 5 [facility]Ep [facility] 34.3 Discharge Information Feeding Method Contraceptive Method Maternal HG B and HCT Levels
--- OUTSIDE RECORDS SUMMARY | 2024-08-27 00:39 | XMS_ITS | Encounter Summary ---
Author Organization [facility] Address [address] [address] Phone Care Team Providers Care Keno Dealer Name Role Phone Annita Barber Primary Care Provider [phone] Reason for Visit * Reason Comments Medication Refill Encounter Details Date Type Department Care Team (Late st Contact Info) Description 05/22/2020 Refill [facility] [address] [place] [address] Mello Gomez MD [address] [place] [id number] Medication Refill Social History Tobacco Use Types [...] on filedocumented in this encounter Care Teams Keno Dealer Relationship Specialty Start Date End Date Annita Barber PAC [address] [place] [address] [phone] PCP - General Physician Fertilizer Applicator 12/13/19 documented as of this encounter
--- OUTSIDE RECORDS SUMMARY | 2024-08-27 00:39 | XMS_ITS | Patient Health Summary ---
Author Organization [facility] Address [address] [place] [address] Care Team Providers Care Framing Manager Name Role Phone Annita Barber PA-C Primary Care Provider + Note from [facility],non-owned Affiliates and Associated Physician Practices is amultiple site organization consisting of ambulatory clinics and hospital sitesin [place], [place], [place] and [place]. This disclosure is being madepursuant to the Care Everywhere program and may not contain all information available regarding this patient. Last updated 18.[facility] Allergies No known active allergies Medications * Be aware that medications may not be up to date on this document. Alwaysverify current medications with the patient. * NORETHINDRONE PO Take by mouth once daily * acetaminophen (TYLENOL) 500 MG tablet(Started 06/15/2018) Take 2 tabs by mouth in am and 2 tabs by mouth in pm as needed for pain. * acyclovir (ZOVIRAX) 800 MG tablet acyclovir 800 mg tablet TAKE 1 TABLET BY MOUTH EVERY DAY * citalopram (CELEXA) 40 MG tablet citalopram 40 mg tablet TAKE 1 TABLET BY MOUTH EVERY DAY * meloxicam (MOBIC) 15 MG tablet(Started 09/11/2018) TAKE 1 TABLET BY MOUTH DAILY WITH FOOD * pantoprazole EC (PROTONIX) 40 MG tablet Take 40 mg by mouth once daily * traMADol (ULTRAM) 50 MG tablet(Started 03/12/2019) Take 50 mg by mouth * Multiple Vitamins-Minerals (MULTIVITAMIN ADULT PO) * ascorbic acid (VITAMIN C) 500 MG tablet Take 500 mg by mouth once daily Active Problems Problem Noted Date Diagnosed Date LGA (large for gestational age) fetus 04/17/2015 Anemia 04/16/2015 Obesity complicating 03/26/2015 Uterine fibroids affecting 03/26/2015 Supervision of high risk in second tri mester 03/26/2015 Threatened labor 03/26/2015 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 Cervical insufficiency durin g in second trimester, antepartum Resolved Problems Problem Noted Date Diagnosed Date Resolved Date Fibroids 03/26/2015 03/26/2015 labor in second trim sabrina without delivery [...] CDT Respiratory Rate 18 05/26/2015 7:30 AM GRINDER SET UP OPERATOR [employer] Oxygen Saturation 97% 03/21/2019 9:14 AM CDT Inhaled Oxygen Concentration - - Weight 130.2 kg (287 lb) 03/21/2019 9:14 AM CDT Height 167.6 cm (5' 6 ) 03/21/2019 9:14 AM CDT Body Mass Index 46.32 03/21/2019 9:14 AM CDT Procedures * LAB RESULTS ORDER(Performed 05/28/2015) * HGB HCT PANEL(Performed 05/25/2015) * BLOOD GASES CORD DEVIN (ISTAT)(Performed 05/24/2015) * BLOOD GASES CORD ART (ISTAT)(Performed 05/24/2015) * NEURAXIAL BLOCK(Performed 05/24/2015) * TYPE + SCREEN PANEL(Performed 05/24/2015) * CBC W AUTO DIFFERENTIAL(Performed 05/24/2015) * PATHOLOGY TISSUE EXAM (STL)(Performed 05/24/2015) * SONOGRAM - COMPLETE(Performed 05/07/2015) Performed for LGA (large for gestational age) fetus * HIV-1 HIV-2 ANTIBODY + HIV P24 AG PANEL(Performed 04/16/2015) * CBC W AUTO DIFFERENTIAL(Performed 04/16/2015) * GLUCOSE PROTEIN KETONE URINE - POINT OF CAR(Performed 04/16/2015) * SONOGRAM - COMPLETE(Performed 04/16/2015) * URINALYSIS REFLEX MICROSCOPIC REFLEX CULTURE(Performed 04/14/2015) Performed for Supervision of high risk in second trimester ([facility]) * LAB RESULTS ORDER(Performed 04/01/2015) * IMAGING/RADIOLOGY/XRAY RESULTS ORDER(Performed 04/01/2015) * TYPE + SCREEN PANEL(Performed 03/29/2015) * CBC W AUTO DIFFERENTIAL(Performed 03/29/2015) * BLOOD TYPE VERIFICATION(Performed 03/26/2015) * TYPE + SCREEN PANEL(Performed 03/26/2015) Performed for Cervical insufficiency during in second trimester, antepartum ([facility]) * CBC W AUTO DIFFERENTIAL(Performed 03/26/2015) Performed for Cervical insufficiency during in second trimester, antepartum ([facility]) * CULTURE URINE(Performed 03/26/2015) Performed for labor in second trimester without delivery ([facility]) * URINALYSIS REFLEX MICROSCOPIC REFLEX CULTURE(Performed 03/26/2015) Performed for Cervical insufficiency during in second trimester, antepartum ([facility]) * CULTURE STREP B(Performed 03/26/2015) Performed for Cervical insufficiency during in second trimester, antepartum ([facility]) * CHLAMYDIA + GC AMPLIFIED PROBE(Performed 03/26/2015) Performed for Cervical insufficiency during in second trimester, antepartum ([facility]) * SONOGRAM - COMPLETE(Performed 03/26/2015) * GLUCOSE CHALLENGE(Performed 03/26/2015) * URINALYSIS REFLEX MICROSCOPIC REFLEX CULTURE(Performed 03/08/2015) Performed for Lower abdominal pain Results * LAB RESULTS ORDER (05/28/2015 2:19 PM GRINDER SET UP OPERATOR [employer]) Only the most recent of2 resultswithin the time period is included. Narrative 05/28/2015 2:19 PM GRINDER SET UP OPERATOR [employer] Ordered by an unspecified provider. Scanned Document LAB - THERAPEUTIC DR FERNANDO MONITORING ORDERABLES * (ABNORMAL) HGB HCT PANEL (05/25/2015 6:29 AM GRINDER SET UP OPERATOR [employer]AL) Hemoglobin 9.6(L) 12.0 - 15.6 gm/dL 05/25/2015 7:29 AM [facility] Hematocrit 30.3(L) 35.9 - 45.5 % 05/25/2015 7:29 AM [facility] Blood BLOOD SPECIMEN / Unknown Lab Venipuncture / Unknown 05/25/2015 6:29 AM GRINDER SET UP OPERATOR [employer] 05/25/2015 7:21 AM GRINDER SET UP OPERATOR [employer] Homero Wan MD LAB - HEMATOLOGY ORD ERABLES Performing Organization Address City/[facility]/ZIP Co de Phone Number [facility] [address] [place] [address] * BLOOD GASES CORD DEVIN (ISTAT) (05/24/2015 11:42 PM GRINDER SET UP OPERATOR [employer]) pH Cord Venous POCT 7.31 7.28 - 7.40 pH 05/24/2015 11:51 PM [facility] pCO2 Cord Venous POCT 44 35 - 45 mmHg 05/24/2015 11:51 PM [facility] pO2 Cord Venous POCT 32 22 - 33 mmHg 05/24/2015 11:51 PM [facility] HCO3 Cord Arterial POCT 22 22 - 24 mmol/L 05/24/2015 11:51 PM [facility] BE Cord Venous POCT Calc -4 -6 - 2 mmol/L 05/24/2015 11:51 PM [facility] TCO2 Cord Venous POCT 23 22 - 30 mmol/L 05/24/2015 11:51 PM [facility] O2 Saturation % Cord Venous Calc POCT 55 % 05/24/2015 11:51 PM [facility] Site CORD DEVIN 05/24/2015 11:51 PM [facility] Sample iSTAT CORD V 05/24/2015 11:51 PM [facility] Blood CORD BLOOD SPECIMEN / Unknown 05/24/2015 11:42 PM GRINDER SET UP OPERATOR [employer] 05/24/2015 11:51 PM GRINDER SET UP OPERATOR [employer] Davion Willis MD LAB - POINT OF CARE ORDERABLES [facility] [address] [place] [address] * (ABNORMAL) BLOOD GASES CORD ART (ISTAT) (05/24/2015 11:35 PM GRINDER SET UP OPERATOR [employer]) pH Cord Arterial POCT 7.22 7.20 - 7.34 pH 05/24/2015 11:51 PM GRINDER SET UP OPERATOR [employer] [facility] pCO2 Cord Arterial POCT 60.4(H) 45 - 55 mmHg 05/24/2015 11:51 PM [facility] pO2 Cord Arterial POCT 16 12 - 25 mmHg 05/24/2015 11:51 PM GRINDER SET UP OPERATOR [employer] [facility] HCO3 Cord Arterial POCT 24.7 15 - 29 mmol/L 05/24/2015 11:51 PM [facility] BE Cord Arterial POCT -4(L) -2.9 - 8.3 mmol/L 05/24/2015 11:51 PM [facility] TCO2 Cord Arterial POCT 26 mmol/L 05/24/2015 11:51 PM [facility] O2 Saturation Cord Art % Calc POCT 16 % 05/24/2015 11:51 PM GRINDER SET UP OPERATOR [employer] [facility] Site CORD ART 05/24/2015 11:51 PM GRINDER SET UP OPERATOR [employer] [facility] Sample iSTAT CORD A 05/24/2015 11:51 PM [facility] Blood CORD BLOOD SPECIMEN / Unknown 05/24/2015 11:35 PM GRINDER SET UP OPERATOR [employer]ERSAL 05/24/2015 11:51 PM GRINDER SET UP OPERATOR [employer]ERSAL Davion Willis MD LAB - POINT OF CARE ORDERABLES Performing Organization Address City/State/[facility] Co de Phone Number [facility] [address] [place] [address] * NEURAXIAL BLOCK (05/24/2015 9:24 PM GRINDER SET UP OPERATOR [employer]ERSAL) Narrative Aailyah Miller APRN-CRNA - 05/24/2015 9:24 PM GRINDER SET UP OPERATOR [employer] Aaliyah Miller APRN-CRNA 05/24/2015 9:24 PM NEURAXIAL BLOCK Patient Location: OB Pre Procedure Indication: labor analgesia Anticoagulation /Antithrombosis Status Confirmed: Yes Preanesthetic Checklist: patient identified, IV checked, site marked, risks and benefits discussed, surgical consent verified, monitors and equipment checked, pre-op evaluation done, timeout performed, informed consent obtained and questions answered / anesthesia plan accepted Monitors: BP and Pulse Ox Patient Condition: awake Patient Position: sitting Procedure Block Performed: epidural Prep: Betadine Sterile Field: mask, cap/hat, sterile field established and sterile gloves Approach: midline Skin Numbed with: lidocaine 1% Epidural Needle Type: Tuohy Needle Gauge: 18 Needle Length: 3.5 in Placement Site: L3-L4 Number of Attempts: 1 Loss of ResistanceTechnique: saline Loss of Resistance: 8 cm Catheter Length at Skin: 13 cm CSF Aspirated from Catheter: negative Blood Aspirated from Catheter: negative Test Dose: lidocaine 1.5% with 1 200 k epinephrine 5 ml at 05/24/2015 8:29 PM Test Dose Response: negative Local Anesthetic: ropivacaine 0.2% Epidural additive: fentanyl Events CSF return negative injection not painful no paresthesia Degree of Difficulty: none Position Post Procedure: left uterine displacement Vital signs monitored and stable throughout. See Anesthesia Intraop record for details. Block Start Time: 05/24/2015 8:27 PM Block End Time: 05/24/2015 8:29 PM Block Performed by: dana Miller Davion Willis MD GENERAL ANESTHESIA O RDERABLES * TYPE + SCREEN PANEL (05/24/2015 6:19 PM GRINDER SET UP OPERATOR [employer]) Only the most recent of3 resultswithin the time period is included. Pathologist [facility] ABO B 05/24/2015 7:11 PM GRINDER SET UP OPERATOR [employer] [facility] Rh Type Positive 05/24/2015 7:11 PM GRINDER SET UP OPERATOR [employer] [facility] Comment:History check perfor med. No retype required. Antibody Screen Negative 05/24/2015 7:11 PM [facility] Miscellaneous samples (specimen) BLOOD SPECIMEN / Unknown Venipuncture / Unknown 05/24/2015 6:19 PM GRINDER SET UP OPERATOR [employer]ERSAL 05/24/2015 6:26 PM GRINDER SET UP OPERATOR [employer]ERSAL Xiomy Calle MD LAB - BLOOD BANK OR DERABLES [facility] [address] [place], [place] [id number] [place] [address] * (ABNORMAL) CBC W AUTO DIFFERENTIAL (05/24/2015 6:19 PM GRINDER SET UP OPERATOR [employer]ERSAL) Only the most recent of4 resultswithin the time period is included. Pathologist [facility] WBC 12.4(H) 4.4 - 10.7 x10^9/L 05/24/2015 6:35 PM [facility] WBC Corrected x10^9/L 05/24/2015 6:35 PM [facility] RBC 3.97 3.80 - 5.20 x10^12/L 05/24/2015 6:35 PM [facility] Hemoglobin 10.7(L) 12.0 - 15.6 gm/dL 05/24/2015 6:35 PM [facility] Hematocrit 33.7(L) 35.9 - 45.5 % 05/24/2015 6:35 PM [facility] MCV 84.9 80.7 - 98.3 fl 05/24/2015 6:35 PM [facility] MCH 27.0 26.7 - 34.0 pg 05/24/2015 6:35 PM [facility] MCHC 31.8 30.8 - 35.9 gm/dL 05/24/2015 6:35 PM [facility] Platelet Count 230 153 - 416 x10^9/L 05/24/2015 6:35 PM [facility] RDW-CV 14.9 12.1 - 14.9 % 05/24/2015 6:35 PM [facility] MPV 11.3 9.4 - 12.9 fl 05/24/2015 6:35 PM [facility] Neutrophils % 88.8(H) 44.0 - 73.0 % 05/24/2015 6:35 PM [facility] Lymphocytes % 8.7(L) 20.0 - 43.0 % 05/24/2015 6:35 PM [facility] Monocytes % 2.2(L) 5.0 - 13.0 % 05/24/2015 6:35 PM [facility] Eosinophils % 0.0 0.0 - 6.0 % 05/24/2015 6:35 PM [facility] Basophils % 0.1 0.0 - 2.0 % 05/24/2015 6:35 PM [facility] Immature Granulocytes 0.2 0 - 1 % 05/24/2015 6:35 PM [facility] Neutrophil Absolute 10.98(H) 2.01 - 7.14 x10^9/L 05/24/2015 6:35 PM [facility] Lymphocytes Absolute 1.07 1.07 - 3.94 x10^9/L 05/24/2015 6:35 PM GRINDER SET UP OPERATOR [employer] [facility] Monocytes Absolute 0.27 0.26 - 1.07 x10^9/L 05/24/2015 6:35 PM GRINDER SET UP OPERATOR [employer] [facility] Eosinophils Absolute 0.00 0 - 0.47 x10^9/L 05/24/2015 6:35 PM GRINDER SET UP OPERATOR [employer] [facility] Basophils Absolute 0.01 0 - 0.08 x10^9/L 05/24/2015 6:35 PM GRINDER SET UP OPERATOR [facility] [facility] Immature Granulocytes Absolute 0.03 0.00 - 0.06 x10^9/L 05/24/2015 6:35 PM GRINDER SET UP OPERATOR [employer]IVERS[employer] [facility] Blood BLOOD SPECIMEN / Unknown Venipuncture / Unknown 05/24/2015 6:19 PM GRINDER SET UP OPERATOR [employer]IVERSAL 05/24/2015 6:26 PM GRINDER SET UP OPERATOR [employer]ERSAL Xiomy Calle MD LAB - HEMATOLOGY OR DERABLES Performing Organization Address City/State/[facility] Co de Phone Number [facility] [address] [place] [address] * GROSS + MICRO EXAM (STL) (05/24/2015 7:52 AM GRINDER SET UP OPERATOR UNIVERSAL) Case Report Surgical Pathology Report Case: [id number] Authorizing Provider: Homero Wan MD Collected: 05/24/2015 07:52 AM Ordering Location: [facility] LDR Received: 05/26/2015 07:52 AM Pathologist: Damian Lozada MD Specimen: Placenta 05/28/2015 2:55 PM GRINDER SET UP OPERATOR [facility] [facility] Final Diagnosis 1. Placenta, delivery: -- Third trimester placenta -- Three-vessel umbilical cord -- Mild acute chorioamnionitis and meconium MGC/alj 05/28/2015 2:55 PM GRINDER SET UP OPERATOR [employer] [facility] Gross Description Received in a formalin-fixed container labeled with the patient's name, Bertha Carrero, and [id number], and additionally labeled, placenta, is a haider discoid placenta, membranes and umbilical cord. gram placenta measuring 15.5 x 14.5 x 3 cm. The umbilical cord is 20 cm in length and 1.5 cm in diameter. It is eccentrically placed 2.5 cm from the placental surface. Cut section of the umbilical cord shows three vessels. The maternal and the surface is unremarkable. The maternal surface has lobular cotyledons. There are no lesions seen, no clot seen. Represented sections are submitted as follows: A1 - Umbilical cord and membranes A2 - and maternal surface A3 - Maternal surface /na 05/28/2015 2:55 PM GRINDER SET UP OPERATOR [facility] Microscopic Description Sections of the umbilical cord show three vessels with no evidence of vasculitis or funisitis. Sections of the membranes reveal mild acute chorioamnionitis and rare meconium macrophages. Sections of the placental disc show reveal maturing chronic villi with no evidence of hemorrhage or infarction. MGC/alj 05/28/2015 2:55 PM GRINDER SET UP OPERATOR [facility] Pathology/Cytolo gy ENTIRE PLACENTA / Unknown 05/24/2015 7:52 AM GRINDER SET UP OPERATOR [employer]IVERSAL 05/26/2015 7:52 AM GRINDER SET UP OPERATOR [employer]IVERSAL Homero Wan MD LAB - PATHOLOGY/CYTO LOGY ORDERABLES [facility] [address] [place] [address] * [facility] US SONOGRAM - COMPLETE (05/07/2015 2:01 PM CDT) Only the most recent of3 resultswithin the time period is included. Anatomical Region Laterality Modality Other 05/07/2015 2:01 PM CDT Narrative 05/07/2015 4:30 PM CDT [facility] PHONE: FAX: Pat. Name: BERTHA CARRERO. No: [id number] Study Date: 05/07/2015 2:01pm , Age: 13 1980, 34 Pregnancies: 1 Height: 66 in Weight: 250 lb LMP: Unknown GA by 1st: 32w1d GA by US: 32w6d GA Selected: 32w1d (From First S) DEZ: 07/01/2015 Referring MD: EVERETT HERNANDEZ MD Online Facilitator: Dora Peters RDMS Hist/Ind: Multiple Uterine Fibroids Complete Anatomy, Abdominal Pain Incompetent Cervix MEASUREMENTS & AGE GROWTH EVALUATION Measurement GA Range Srce %for GA Ratios ----- ---- ------- BPD 7.8 cm 31w2d (91g4v-40q0j) Hadl BPD 38% FL/BPD 0.85 (0.71 - 0.87) HC 28.5 cm 31w2d (40f3j-31y9a) Hadl HC 37% FL/AC 0.23 (0.20 - 0.24) AC 28.8 cm 32w6d (40e7y-49o8d) Hadl AC 60% HC/AC 0.99 (0.95 - 1.14) FL 6.7 cm 34w2d (58d3t-23d3u) Hadl FL 82% CI 0.76 (0.70 - 0.86) HL 6.0 cm 34w5d (02t5n-38a6b) Eduardo HL 92% GA for sonogram 32w6d (55g9i-69d2v) Weight Estimate: based on (HL,BPD,HC,AC,FL) Avg Weight: 2085 gm (7806-4112) Hadlo : 4lbs, 9oz Normal: 1983 gm (1079-1881) Hadlo Wt% 60% for 32w1d Heart Rate: 153 bpm Amniotic Fluid Index: 17.7cm (08.6-24.2) Q1: 6.4cm Q2: 5.4cm Q3: 3.1cm Q4: 2.7cm CLINICAL SUMMARY Study Number: 3 A single fetus is identified in cephalic presentation. The measurements today are consistent with appropriate growth compared to previous study. The DEZ selected is based on a prior ultrasound examination (confirmed). The amniotic fluid volume is within normal limits. The placenta is anterior. The anatomy was not well visualized due to maternal acoustic properties and position. No major malformations are seen. The patient was advised that ultrasound does not allow detection of all structural or chromosomal abnormalities. The maternal fibroids are again visualized as stable. Right Fundal subserosal fibroid 8.65cm Right anterior subserosal fibroid 6.76cm Right posterior submucosal fibroid 7.14cm IMPRESSION: Single, live IUP at 32w1d Multiple large fibroid uterus Normal amniotic fluid volume. Appropriate growth. Placental location: anterior No major malformations are seen today within the limitations of ultrasound. RECOMMEND: Follow up ultrasound in 4 weeks for growth and to reassess maternal fibroids Thank you for allowing us the opportunity to care for your patient. Malvin Carlos MD <Electronic Signature> 05/07/2015 04:30pm Stephanie York MD [facility] ORDERABLES * HIV-1 HIV-2 ANTIBODY + HIV P24 AG PANEL (04/16/2015 2:06 PM CDT) HIV1/2 Ab + P24 Ag Non Reactive Non Reactive 04/16/2015 6:47 PM CDT [facility] Blood BLOOD SPECIMEN / Unknown Venipuncture / Unknown 04/16/2015 2:06 PM CDT 04/16/2015 2:50 PM CDT Narrative [facility] - 04/16/2015 6:47 PM CDT No Laboratory evidence of HIV infection. Chikis Das MD LAB - CHEMISTRY [facility] [place] [address] * GLUCOSE PROTEIN KETONE URINE - POINT OF CAR (04/16/2015 12:08 PM CDT) Glucose UA neg Negative [facility] Protein UA tr Negative [facility] Ketone UA neg Negative [facility] QC Verified Yes Yes [facility] POC T TESTING Urine specimen (specimen) URINE / Unknown 04/16/2015 12:08 PM CDT Homero Wan MD LAB - POINT OF CARE ORDERABLES Performing Organization Address City/[facility]/ZIP Co de Phone Number [facility] [address] [phone] * URINALYSIS ROUTINE W/REFLEX TO CULTURE (04/14/2015 7:26 PM CDT) Only the most recent of3 resultswithin the time period is included. Color UA Yellow Straw, Yellow, Dark Yellow 04/14/2015 7:36 PM CDT [facility] Clarity UA Clear 04/14/2015 7:36 PM CDT [facility] Specific Brenham UA 1.008 1.005 - 1.030 04/14/2015 7:36 PM CDT [facility] pH UA 7.0 5.0 - 8.0 pH 04/14/2015 7:36 PM CDT [facility] Protein UA Negative Negative 04/14/2015 7:36 PM CDT [facility] Blood UA Negative Negative 04/14/2015 7:36 PM CDT [facility] Leukocyte UA Negative Negative 04/14/2015 7:36 PM CDT [facility] Nitrite UA Negative Negative 04/14/2015 7:36 PM CDT [facility] Glucose UA Negative Negative 04/14/2015 7:36 PM CDT [facility] Ketone UA Negative Negative 04/14/2015 7:36 PM CDT [facility] Bilirubin UA Negative Negative 04/14/2015 7:36 PM CDT [facility] Urobilinogen UA 0.2 0.1 - 1.0 EU/dL 04/14/2015 7:36 PM CDT [facility] Reflex Status Culture not indicated 04/14/2015 7:36 PM CDT [facility] Urine URINE SPECIMEN OBTAINED BY CLEAN CATCH PROCEDURE / Unknown Collection / Unknown 04/14/2015 7:26 PM CDT 04/14/2015 7:28 PM CDT Dalila Conde MD LAB - URINALYSIS ORDERABLES Performing Organization Address City/[facility] Co de Phone Number [facility] [address] [place] [address] * IMAGING/RADIOLOGY/XRAY RESULTS ORDER (04/01/2015 11:00 AM CDT) Anatomical Region Laterality Modality Other Narrative 04/01/2015 11:00 AM CDT Ordered by an unspecified provider. Scanned Document IMAGING * BLOOD TYPE VERIFICATION (03/26/2015 8:24 PM CDT) ABO B 03/26/2015 8:43 PM CDT [facility] Rh Type Positive 03/26/2015 8:43 PM CDT [facility] Miscellaneous samples (specimen) BLOOD SPECIMEN / Unknown Lab Venipuncture / Unknown 03/26/2015 8:24 PM CDT 03/26/2015 8:29 PM CDT Raj Chandler MD LAB - BLOOD BANK ORD ERABLES Performing Organization Address [facility] Co de Phone Number [facility] [address] * CULTURE URINE (03/26/2015 5:21 PM CDT) Culture <10,000 CFU/mL normal enteric criselda LUANN 03/28/2015 6:23 AM CDT [facility] Urine URINE SPECIMEN OBTAINED BY CLEAN CATCH PROCEDURE / Unknown Collection / Unknown 03/26/2015 5:21 PM CDT 03/26/2015 5:31 PM CDT Emelina James MD LAB - MICROBIOLOGY O RDERABLES Performing Organization Address [facility]/ZIP Co de Phone Number [facility] [address] [place] [address], [facility] [phone] * CHLAMYDIA + GC AMPLIFIED PROBE (03/26/2015 5:20 PM CDT) Chlamydia Amplified Probe Negative Negative 03/27/2015 2:10 PM CDT [facility] GC Amplified Probe Negative Negative 03/27/2015 2:10 PM CDT [facility] Microbiology PART OF UTERINE CERVIX / Unknown Collection / Unknown 03/26/2015 5:20 PM CDT 03/26/2015 5:31 PM CDT Narrative [facility] - 03/27/2015 2:10 PM CDT Results based on detection/no detection of ribosomal RNA by amplified method. Luis A Knott MD LAB - MICROBIOLO GY ORDERABLES Performing Organization Address [facility] Co de Phone Number [facility] [address] [place] [address], [facility] [phone] * CULTURE STREP B (03/26/2015 5:20 PM CDT) Pathologist [facility] Culture Negative for Beta Hemolytic Streptococcus Group B LUANN 03/29/2015 9:21 AM CDT [facility] Microbiology MISCELLANEOUS SAMPLES / Unknown Collection / Unknown 03/26/2015 5:20 PM CDT 03/26/2015 5:31 PM CDT Luis A Knott MD LAB - MICROBIOLO GY ORDERABLES Performing Organization Address City/[facility]/ZIP Co de Phone Number [facility] [address] [place] [address], [facility] [phone] * GLUCOSE CHALLENGE (03/26/2015 2:13 PM CDT) Pathologist [facility] Glucose Challenge 108 64 - 140 mg/dL 03/26/2015 3:05 PM CDT [facility] Glucose Challenge Time 1400 03/26/2015 3:05 PM CDT [facility] Blood BLOOD SPECIMEN / Unknown Venipuncture / Unknown 03/26/2015 2:13 PM CDT 03/26/2015 2:37 PM CDT Leticia Payan MD LAB - CHEMISTRY ANA Cosme Organization Address City/State/ZIP Co de Phone Number [facility] [address], [place] [phone] Care Teams Framing Manager Relationship Specialty Start Date End Date Annita Barber PA-C [address] [place] [id number] PCP - General 05/04/19
[2024-08-27] MEDS: KETOROLAC 30 MG/ML VIAL (*BKC) IM (00:54)
[2024-08-27] MEDS: LIDOCAINE 5% PATCH 1 PATCH TRANSDERM (00:54)
[2024-08-27] MEDS: dexAMETHasone SOD PHOS INJ 10 MG/ML 1 ML VIAL IM (00:54)
--- NOTE | 2024-08-27 01:34 | PC.NURSE ---
This RN attempted to have patient bear weight and ambulate but patient was able to bear weight but screamed out in pain, HR increased from 88bpm to 130bpm with increase in respirations as well from 18 to 31. Patient was assisted back into bed and PA notified.
[2024-08-27] MEDS: HYDROmorphone HCL INJ (*CRX) 1 MG/ML SYR IM (01:55)
--- NOTE | 2024-08-27 02:47 | PC.NURSE ---
Attempted to stand and ambulate patient, patient screaming out in pain and states she is unable to do so. ERP notified.
[2024-08-27] MEDS: diazePAM (*CRX) 5 MG TABLET PO (03:52)
== END 2024-08-27 04:54 | disposition home or self-care (01) ==
PROVIDERS: Emergency Provider Physician Assistant; PCP Physician Assistant Medical
DX: M54.16 Radiculopathy, lumbar region (principal)
CPT/HCPCS: 96372; 99284; A9270; J1100; J1171; J1885